=== PATIENT | male | born 1945 | race Caucasian/White ===

== ENCOUNTER 2018-06-20 11:19 | Outpatient (REF) | payer MEDICARE, SELFPAY ==
[2018-06-20 14:51] LABS: Anion Gap 7.6 mmol/L (3-11); BUN 13 mg/dL (7-18); CO2 29.4 mmol/L (21.0-32.0); CREATININE 1.02 mg/dL (0.70-1.30); Calcium 9.3 mg/dL (8.5-10.1); Chloride 102 mmol/L (98-107); Cholesterol 195 mg/dL (50-200); Glucose 147 mg/dL (70-100); HDL Cholesterol 37 mg/dL (40-60); LDL CHOLESTEROL 114 mg/dL (<100); Magnesium 1.4 mg/dL (1.8-2.4); Potassium 3.9 mmol/L (3.5-5.1); Sodium 139 mmol/L (136-145); Triglyceride 361 mg/dL (30-150); Vitamin B12 277 pg/mL (193-986)
== END 2018-06-20 11:39 ==
LOC: NCHCN 11:19
PROVIDERS: PCP Family Medicine; Visit Provider Family Medicine
DX: E83.42 Hypomagnesemia (principal); E78.5 Hyperlipidemia, unspecified; E11.9 Type 2 diabetes mellitus without complications; Z79.4 Long term (current) use of insulin; R20.0 Anesthesia of skin
CPT/HCPCS: 80048; 80061; 83721; 82607; 83735

== ENCOUNTER 2019-01-16 13:40 | Emergency (ER) | payer MEDICARE, SELFPAY ==
[2019-01-16 13:43] VITALS: BP 142/76; PULSE 75; RESP 18; TEMP 36.7; O2SAT 96
--- NOTE | 2019-01-16 13:55 | W.ED.GENAD ---
Discharge Plan Disposition Patient Disposition: HOME Condition: Fair Discharge Details Chief Complaint: FacialProb Clinical Impression: Parotid swelling Primary Care Provider: Asif Burr ED Provider: Belkys Melendez Home Meds and New Rx's Prescriptions: Continued metformin 500 MG tablet 2 tab PO BID Qty: 180 RF: 4 amlodipine 10 MG tablet 1 tab PO DAILY Qty: 90 RF: 3 hydrochlorothiazide 25 MG tablet 25 mg PO DAILY Qty: 90 RF: 4 pravastatin 10 MG tablet 10 mg PO DAILY Qty: 90 RF: 3 lisinopril 40 MG tablet 40 mg PO QAM Qty: 90 RF: 0 Lantus Solostar U-100 Insulin 100 UNIT/1 ML insulin pen 40 units SQ HS Qty: 1 RF: 12 blood-glucose meter 1 EACH misc 1 ea Miscellaneous ONCE Qty: 1 RF: 0 blood sugar diagnostic [Blood Glucose Test] 1 EACH strip 1 ea Miscellaneous BID Qty: 200 RF: 4 lancets 1 EACH misc 1 ea Miscellaneous BID Qty: 200 RF: 4 aspirin 81 MG tablet,chewable 1 tab PO DAILY RF: 0 pioglitazone 30 mg Tablet 30 mg PO DAILY RF: 0 Discharge Instructions Instructions: Parotid Duct Obstruction (ED) Additional Instructions: At this point, your swelling does not appear to be from infection, rather this is likely from a blockage of the salivary duct. Encourage hydration (with water). Tylenol and ibuprofen as needed for discomfort. Try to increase elevations by sucking on sour candies, pickles. If you develop fever/chills, increased pain, redness or the new/worsening symptoms please seek care urgently once again. Otherwise, please follow-up with primary care next week if symptoms persist Referrals: Asif Burr [Primary Care Provider] - Medical Decision Making Patient 73 year old male presenting today with c/c of right sided facial pain that began yesterday. Pain and swelling noted over the right parotid gland. No erythema or warmth. He denies fevers/chills, recent travel. No abnormality in posterior oropharynx. No mass or swelling. Uvula is midline. Patient nontoxic. Swelling does not appear to be associated with infection. Advised this is likely associated with blockage of salivary duct. Encouraged hydration. He reports that he drinks 4 pots of coffee daily, I encouraged that he cut this back and try to add in water. We discussed using Lemon drops and other sour foods that will prompt excessive salivation. I advsed on compresses. Tylenol and/or Ibuprofen as needed for discomfort. He was given strict return precautions, in particular discussed signs of infection. All of his questions and concerns were addressed, he is in agreement with this plan. HPI General Mode of arrival: ambulatory. Date/Time Provider Initiated Documentation: 01/16/19 13:54. Limitations to Documentation: no limitations. Information obtained by: patient and RN notes reviewed. History of Present Illness 73 year old M presents to the emergency department with the chief complaint of right sided facial swelling, described as moderate, with intensity rated at 4. Quality is described as aching, and is localized to the face. Patient reports no radiation. Patient started experiencing this day(s) (1) and it has been constant. No relieving factors improve symptom(s), Eating worsens symptoms . Patient notes denies chest pain, cough, diaphoresis, fever/chills, headaches, loss of appetite, malaise, nausea/vomiting, rash, shortness of breath and weakness. Patient did receive the following treatments prior to arrival, NSAID Related Data Home Medications Medication Instructions Recorded Confirmed aspirin 1 tab PO DAILY 10/24/12 01/16/19 amlodipine 1 tab PO DAILY #90 tab 09/08/13 01/16/19 metformin 2 tab PO BID #180 tab-cap 09/08/13 01/16/19 hydrochlorothiazide 25 mg PO DAILY #90 tab 11/13/13 01/16/19 pravastatin 10 mg PO DAILY #90 tab 01/12/14 01/16/19 lisinopril 40 mg PO QAM #90 tab 02/11/14 01/16/19 Lantus Solostar U-100 Insulin 40 units SQ HS #1 pen 09/10/14 01/16/19 blood sugar diagnostic [Blood #200 strip 09/10/14 Glucose Test] blood-glucose meter #1 ea 09/10/14 lancets #200 ea 09/10/14 pioglitazone 30 mg PO DAILY 01/16/19 01/16/19 Allergies Allergy/AdvReac Type Severity Reaction Status Date / Time No Known Drug Allergies Allergy Unknown Unverified 01/16/19 13:47 General Stated Complaint: FacialProb CRISTIN: 4 Review of Systems Constitutional Reports as per HPI, Denies chills, Denies fatigue, Denies fever(s), Denies headache(s), Denies lethargy and Denies poor appetite Eyes Reports as per HPI, Denies eye discharge and Denies irritation ENT Reports as per HPI, Denies change in voice, Denies dental pain, Denies dysphagia, Denies vertigo, Denies dizziness, Denies ear discharge, Denies otalgia, Reports facial pain (right side of face over parotid gland), Denies headache(s), Denies mouth pain, Denies nasal congestion, Denies nasal discharge, Denies sinus pain, Denies sinus pressure, Denies sore throat and Denies throat swelling Cardiovascular Reports as per HPI, Denies chest pain and Denies dyspnea Respiratory Reports as per HPI, Denies cough and Denies dyspnea Gastrointestinal Reports as per HPI, Denies abdominal pain, Denies change in bowel habits, Denies dysphagia, Denies nausea and Denies vomiting Integumentary/Breasts Reports as per HPI and Denies rash Neurologic Reports as per HPI, Denies vertigo, Denies dizziness and Denies headache(s) Endocrine Denies fatigue Allergic/Immunologic Denies throat swelling [facility] Medical History Hypercholesteremia (Acute) Diabetes (Chronic) Hypertension (Chronic) Surgical History Appendectomy Colonoscopy - IV Sedation Colonoscopy - MAC (~2001) KNEE REPAIR LASER SURGERY Rotator Cuff Repair Social History Smoking/Tobacco Use Status: Current every day Drug use: Never Exam Const General: cooperative, healthy appearing, comfortable, no acute distress, well developed and well groomed Nutritional Appearance: average body habitus and well nourished Orientation: alert and awake [facility] Head: normal to inspection, normocephalic and atraumatic Ears: hearing grossly normal bilaterally, external ears normal and TM's normal bilaterally General nose exam: external nose normal and nares normal Face and sinus: sinuses nontender, no crepitus, no erythema, no fluctuance, no sinus tenderness and tenderness on the right (parotid gland, localized sweling, no erythema or warmth) Mouth: oral mucosae normal, lip normal, tongue normal, oropharynx normal and moist mucous membranes Teeth and gingiva: gingiva normal, caries and poor dentition Throat: posterior oropharynx normal, tonsils normal and uvula midline Eyes General: appearance normal, both eyes and all related structures Neck Neck: normal visual inspection, full ROM, no lymphadenopathy and no meningeal signs Resp Effort & Inspection: normal respiratory effort, able to speak in complete sentences and no respiratory distress Auscultation: clear to auscultation bilaterally, no rales, no rhonchi and no wheezes Cardio Rate: regular rate Rhythm: regular rhythm Heart Sounds: S1 normal and S2 normal Skin General skin exam: no rashes or lesions noted Neuro General: alert and awake Cognition: normal cognition Speech: speech normal Gait: normal gait Psych Appearance: grossly normal and well kempt Mental Status: mental status grossly normal Speech and Movement: speech and movement normal Course Vital Signs Temperature 36.7 C 01/16/19 13:43 Pulse 75 01/16/19 13:43 Respiratory Rate 18 01/16/19 13:43 Blood Pressure 142/76 H 01/16/19 13:43 Pulse Oximetry 96 01/16/19 13:43 Temperature 36.7 C 01/16/19 13:43 Temperature Source Skin 01/16/19 13:43 Pulse 75 01/16/19 13:43 Respiratory Rate 18 01/16/19 13:43 Blood Pressure 142/76 H 01/16/19 13:43 Blood Pressure Position Sitting 01/16/19 13:43 Pulse Oximetry 96 01/16/19 13:43 Oxygen Delivery Method Room Air 01/16/19 13:43 Oxygen Flow Rate 0 01/16/19 13:43 Pain Level 4 01/16/19 13:43
[2019-01-16 14:16] VITALS: BP 142/76; PULSE 75; RESP 18; TEMP 36.7; O2SAT 96
--- NOTE | 2019-01-16 15:05 | ED.GENADUL_ITS ---
Discharge Plan Disposition Patient Disposition: HOME Condition: Fair Discharge Details Chief Complaint: FacialProb Clinical Impression: Parotid swelling Primary Care Provider: Asif Burr ED Provider: Belkys Melendez Home Meds and New Rx's Prescriptions: Continued metformin 500 MG tablet 2 tab PO BID Qty: 180 RF: 4 amlodipine 10 MG tablet 1 tab PO DAILY Qty: 90 RF: 3 hydrochlorothiazide 25 MG tablet 25 mg PO DAILY Qty: 90 RF: 4 pravastatin 10 MG tablet 10 mg PO DAILY Qty: 90 RF: 3 lisinopril 40 MG tablet 40 mg PO QAM Qty: 90 RF: 0 Lantus Solostar U-100 Insulin 100 UNIT/1 ML insulin pen 40 units SQ HS Qty: 1 RF: 12 blood-glucose meter 1 EACH misc 1 ea Miscellaneous ONCE Qty: 1 RF: 0 blood sugar diagnostic [Blood Glucose Test] 1 EACH strip 1 ea Miscellaneous BID Qty: 200 RF: 4 lancets 1 EACH misc 1 ea Miscellaneous BID Qty: 200 RF: 4 aspirin 81 MG tablet,chewable 1 tab PO DAILY RF: 0 pioglitazone 30 mg Tablet 30 mg PO DAILY RF: 0 Discharge Instructions Instructions: Parotid Duct Obstruction (ED) Additional Instructions: At this point, your swelling does not appear to be from infection, rather this is likely from a blockage of the salivary duct. Encourage hydration (with water). Tylenol and ibuprofen as needed for discomfort. Try to increase elevations by sucking on sour candies, pickles. If you develop fever/chills, increased pain, redness or the new/worsening symptoms please seek care urgently once again. Otherwise, please follow-up with primary care next week if symptoms persist Referrals: Asif Burr [Primary Care Provider] - Medical Decision Making Patient 73 year old male presenting today with c/c of right sided facial pain that began yesterday. Pain and swelling noted over the right parotid gland. No erythema or warmth. He denies fevers/chills, recent travel. No abnormality in posterior oropharynx. No mass or swelling. Uvula is midline. Patient nontoxic. Swelling does not appear to be associated with infection. Advised this is likely associated with blockage of salivary duct. Encouraged hydration. He reports that he drinks 4 pots of coffee daily, I encouraged that he cut this back and try to add in water. We discussed using Lemon drops and other sour foods that will prompt excessive salivation. I advsed on compresses. Tylenol and/or Ibuprofen as needed for discomfort. He was given strict return precautions, in particular discussed signs of infection. All of his questions and concerns were addressed, he is in agreement with this plan. HPI General Mode of arrival: ambulatory . Date/Time Provider Initiated Documentation: 01/16/19 13:54 . Limitations to Documentation: no limitations . Information obtained by: patient and RN notes reviewed . History of Present Illness 73 year old M presents to the emergency department with the chief complaint of right sided facial swelling, described as moderate, with intensity rated at 4. Quality is described as aching, and is localized to the face. Patient reports no radiation. Patient started experiencing this day(s) (1) and it has been constant. No relieving factors improve sy mptom(s), Eating worsens symptoms . Patient notes denies chest pain, cough, diaphoresis, fever/chills, headaches, loss of appetite, malaise, nausea/vomiting, rash, shortness of breath and weakness. Patient did receive the following treatments prior to arrival, NSAID Related Data Home Medications Medication Instructions Recorded Confirmed aspirin 1 tab PO DAILY 10/24/12 01/16/19 amlodipine 1 tab PO DAILY #90 tab 09/08/13 01/16/19 metformin 2 tab PO BID #180 tab-cap 09/08/13 01/16/19 hydrochlorothiazide 25 mg PO DAILY #90 tab 11/13/13 01/16/19 pravastatin 10 mg PO DAILY #90 tab 01/12/14 01/16/19 lisinopril 40 mg PO QAM #90 tab 02/11/14 01/16/19 Lantus Solostar U-100 Insulin 40 units SQ HS #1 pen 09/10/14 01/16/19 blood sugar diagnostic [Blood #200 strip 09/10/14 Glucose Test] blood-glucose meter #1 ea 09/10/14 lancets #200 ea 09/10/14 pioglitazone 30 mg PO DAILY 01/16/19 01/16/19 Allergies Allergy/AdvReac Type Severity Reaction Status Date / Time No Known Drug Allergies Allergy Unknown Unverified 01/16/19 13:47 General Stated Complaint: FacialProb CRISTIN: 4 Review of Systems Constitutional Reports as per HPI, Denies chills, Denies fatigue, Denies fever(s), Denies headache(s), Denies lethargy and Denies poor appetite Eyes Reports as per HPI, Denies eye discharge and Denies irritation ENT Reports as per HPI, Denies change in voice, Denies dental pain, Denies dysphagia, Denies vertigo, Denies dizziness, Denies ear discharge, Denies otalgia, Reports facial pain (right side of face over parotid gland), Denies headache(s), Denies mouth pain, Denies nasal congestion, Denies nasal discharge, Denies sinus pain, Denies sinus pressure, Denies sore throat and Denies throat swelling Cardiovascular Reports as per HPI, Denies chest pain and Denies dyspnea Respiratory Reports as per HPI, Denies cough and Denies dyspnea Gastrointestinal Reports as per HPI, Denies abdominal pain, Denies change in bowel habits, Denies dysphagia, Denies nausea and Denies vomiting Integumentary/Breasts Reports as per HPI and Denies rash Neurologic Reports as per HPI, Denies vertigo, Denies dizziness and Denies headache(s) Endocrine Denies fatigue Allergic/Immunologic Denies throat swelling [facility] Medical History Hypercholesteremia (Acute) Diabetes (Chronic) Hypertension (Chronic) Surgical History Appendectomy Colonoscopy - IV Sedation Colonoscopy - MAC (~2001) KNEE REPAIR LASER SURGERY Rotator Cuff Repair Social History Smoking/Tobacco Use Status: Current every day Drug use: Never Exam Const General: cooperative, healthy appearing, comfortable, no acute distress, well developed and well groomed Nutritional Appearance: average body habitus and well nourished Orientation: alert and awake [facility] Head: normal to inspection, normocephalic and atraumatic Ears: hearing grossly normal bilaterally, external ears normal and TM's normal bilaterally General nose exam: external nose normal and nares normal Face and sinus: sinuses nontender, no crepitus, no erythema, no fluctuance, no sinus tenderness and tenderness on the right (parotid gland, localized sweling, no erythema or warmth) Mouth: oral mucosae normal, lip normal, tongue normal, oropharynx normal and moist mucous membranes Teeth and gingiva: gingiva normal, caries and poor dentition Throat: posterior oropharynx normal, tonsils normal and uvula midline Eyes General: appearance normal, both eyes and all related structures Neck Neck: normal visual inspection, full ROM, no lymphadenopathy and no meningeal signs Resp Effort & Inspection: normal respiratory effort, able to speak in complete sentences and no respiratory distress Auscultation: clear to auscultation bilaterally, no rales, no rhonchi and no wheezes Cardio Rate: regular rate Rhythm: regular rhythm Heart Sounds: S1 normal and S2 normal Skin General skin exam: no rashes or lesions noted Neuro General: alert and awake Cognition: normal cognition Speech: speech normal Gait: normal gait Psych Appearance: grossly normal and well kempt Mental Status: mental status grossly normal Speech and Movement: speech and movement normal Course Vital Signs Temperature 36.7 C 01/16/19 13:43 Pulse 75 01/16/19 13:43 Respiratory Rate 18 01/16/19 13:43 Blood Pressure 142/76 H 01/16/19 13:43 Pulse Oximetry 96 01/16/19 13:43 Temperature 36.7 C 01/16/19 13:43 Temperature Source Skin 01/16/19 13:43 Pulse 75 01/16/19 13:43 Respiratory Rate 18 01/16/19 13:43 Blood Pressure 142/76 H 01/16/19 13:43 Blood Pressure Position Sitting 01/16/19 13:43 Pulse Oximetry 96 01/16/19 13:43 Oxygen Delivery Method Room Air 01/16/19 13:43 Oxygen Flow Rate 0 01/16/19 13:43 Pain Level 4 01/16/19 13:43
== END 2019-01-16 14:15 | disposition home or self-care (01) ==
LOC: ER 14:21
PROVIDERS: Emergency Provider Physician Assistant; PCP Family Medicine
DX: R59.0 Localized enlarged lymph nodes (principal); K11.21 Acute sialoadenitis; E11.9 Type 2 diabetes mellitus without complications; I10 Essential (primary) hypertension; Z79.4 Long term (current) use of insulin
CPT/HCPCS: 99282

== ENCOUNTER 2019-08-14 09:29 | Outpatient (REF) | payer OTHER, SELFPAY ==
[2019-08-14 12:03] LABS: Hemoglobin A1C 12.7 % (4.5-6.2)
[2019-08-14 12:27] LABS: Anion Gap 7.8 mmol/L (3-11); BUN 11 mg/dL (7-18); CO2 30.2 mmol/L (21.0-32.0); CREATININE 0.96 mg/dL (0.70-1.30); Calcium 9.1 mg/dL (8.5-10.1); Chloride 103 mmol/L (98-107); Glucose 236 mg/dL (74-106); Magnesium 1.7 mg/dL (1.8-2.4); Potassium 3.8 mmol/L (3.5-5.1); Sodium 141 mmol/L (136-145); Vitamin B12 362 pg/mL (193-986)
== END 2019-08-14 09:49 ==
LOC: NCHCN 09:29
PROVIDERS: PCP Family Medicine; Visit Provider Family Medicine
DX: I10 Essential (primary) hypertension (principal); E83.42 Hypomagnesemia; E11.9 Type 2 diabetes mellitus without complications; Z79.4 Long term (current) use of insulin; R20.0 Anesthesia of skin
CPT/HCPCS: 80048; 82607; 83036; 83735

== ENCOUNTER 2019-09-16 11:15 | Outpatient (CLI) | payer OTHER, SELFPAY ==
--- NOTE | 2019-09-16 09:35 | DI.RAD_ITS ---
EXAM: XR CHEST 2V PA LATERAL INDICATION: SOB R06.02. COMPARISON: CHEST 2 VIEWS PA,LAT from 04/02/2013 TECHNIQUE: 2D digital imaging was performed. FINDINGS: Heart is at the upper limits of normal in size. There is prominence of the pulmonary vasculature. B ilateral pleural effusions are present. Interstitial infiltrates are seen. Degenerative changes are seen in the spine. IMPRESSION: Findings suggestive of congestive heart failure.
== END 2019-09-16 11:35 ==
PROVIDERS: PCP Family Medicine; Visit Provider Family Medicine
DX: I51.7 Cardiomegaly (principal); J90 Pleural effusion, not elsewhere classified; I50.9 Heart failure, unspecified
CPT/HCPCS: 71046

== ENCOUNTER 2019-10-08 02:22 | Outpatient (CLI) | payer OTHER, SELFPAY ==
--- NOTE | 2019-10-08 13:40 | DI.US_ITS ---
APPROVED REPORT EXAM: Comprehensive 2D, Doppler, and color-flow Echocardiogram Patient Location: Out-Patient Feltmaker: Yuki Benjamin RDCS (AE) Rhythm: BBB Indications: congestive heart failure. new SOB, CXR c/w CHF Conclusion Left Ventricle : Left ventricle is mildly dilated. Left ventricular systolic function is moderately d ecreased. Borderline left ventricular hypertrophy. The entire apex is hypokinetic. Please see wall m otion diagram for further details. The septum is D-shaped suggestive of RV pressure overload. There is grade 2 diastolic dysfunction. LVEF is estimated to be 35???40%. Right Ventricle : The right ventricle is normal size. The right ventricular systolic function appears low normal. Atria : Left atrium is moderately dilated. Right atrium is mildly dilated. Aortic Valve : The Aortic valve is sclerotic. Aortic valve is probably trileaflet. There is no aortic valvular stenosis. No aortic regurgitation is present. Mitral Valve : Mitral valve leaflets are mildly thickened. Mild mitral regurgitation. No evidence of mitral valve stenosis. 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 The ascending aorta is mildly dilated at 3.9 cm. The IVC is dilated but collapses >50% with inspiration. The estimated RVSP is 40-50 mmHg. There is no prior echocardiogram available for comparison. Wall motion Left Ventricle Left ventricle is mildly dilated. Left ventricular systolic function is moderately decreased. Borderl ine left ventricular hypertrophy. The entire apex is hypokinetic. Please see wall motion diagram for further details. The septum is D-shaped suggestive of RV pressure overload. There is grade 2 diastoli c dysfunction. LVEF is estimated to be 35???40%. Right Ventricle The right ventricle is normal size. The right ventricular systolic function appears low normal. Atria Left atrium is moderately dilated. Right atrium is mildly dilated. Aortic Valve The Aortic valve is sclerotic. Aortic valve is probably trileaflet. There is no aortic valvular steno sis. No aortic regurgitation is present. Mitral Valve Mitral valve leaflets are mildly thickened. No evidence of mitral valve stenosis. Mild mitral regurgi tation. Tricuspid Valve The tricuspid valve leaflets are midlly thickened or calcified, but open well. Moderate tricuspid reg urgitation. Pulmonic Valve Pulmonic valve is not well visualized. 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 The ascending aorta is mildly dilated at 3.9 cm. The IVC is dilated but collapses >50% with inspiration. The estimated RVSP is 40-50 mmHg. Pericardium Trivial pericardial effusion was noted. Right pleural effusion was identified. 2D Dimensions IVSD d PLAX 1.21 cm M: 0.6-1.2 LV Vol A2C d MOD 191.5 mL LVPW d PLAX 1.08 cm M: 0.6 - 1.2 LV Vol A4C d MOD 162.1 mL LVID d PLAX 6.27 cm M: 4.2 - 5.8 LA vol/ BSA A2C s A-L 47.8 mL/m2 LVDs 5.00 cm M: 2.5 - 4.0 LA vol/ BSA A4C s A-L 52.6 mL/m2 Ao Root d 3.80 cm M: 3.1 - 3.7 LA Vol/ BSA Biplane s A-L 51.6 mL/m2 RVID Base (AP4) 3.92 cm (M/F) 2.5-4.1 LA Area A4C s MOD 27.50 cm2 RA Area A4C 20.92 cm2 LA Area A2C s MOD 25.49 cm2 RA Vol/ BSA A4C s A-L 30.9 mL/m2 LV EF A4C MOD 41.2 % Ao Asc Diam d 3.93 cm M: 2.6 - 3.4 LV EF A2C MOD 40.6 % LV EF Teichholz 40.1 % LV EF Biplane MOD 40.1 % LVEF (Burton's) 40.15 % M: 52 - 72 IVC Diam exp d SLAX 2.20 cm LV Volume 139.15 mL M: 62 - 150 LV Volume Index 72.47 mL/m2 M: 34 - 74 LV Vol Biplane MOD 183.1 mL FS 19.95 % M-Mode TAPSE 1.69 cm (M/F) <1.7 LV Diastology MV E' medial 0.058 (>0.07 m/s) E/A Ratio 1.9 LV E/e MED 16.15 (<14) PV S/D Ratio 0.60 MV E' lateral 0.063 (>0.1 m/s) MV E Vmax 0.94 (0.4-1.3 m/s) LV E/e LAT 14.80 (<14) MV A Vmax 0.50 (0.4-1.3 m/s) MV E/E' medial 16.17 MV E/A Ratio 1.74 MV E/E' lateral 14.81 Aortic Valve LVOT Area 3.73 cm2 AoV Area Vmax 2.12 cm2 LVOT Vmax 0.83 m/s AoV Area/ BSA (Vmax) 1.10 cm2/m2 LVOT Mean Walter. 0.61 m/s MICK Mean Walter. 2.12 cm2 LVOT Peak Grad 2.8 mmHg MICK Mean Walter. Index 1.10 cm2/m2 LVOT Mean Grad 1.7 mmHg LVOT VTI 0.152 m LVOT Diam s 2.15 cm (M/F) 1.5-2.5 AoV Vmax 1.47 (0.5-1.3 m/s) Velocity Ratio 0.56 AoV Mean Walter. 1.07 m/s AoV Peak Grad 8.6 mmHg LVOT SV 56.79 mL AoV Mean Grad 5.0 (<5 mmHg) AoV VTI 0.284 (0.18-0.25 m) AoV Area VTI 2.00 (2.5-4.5 cm2) AoV Area/ BSA (VTI) 1.04 cm/m2 Mitral Valve MV DT 126 (160-240 msec) MR Vmax 4.92 m/s MV PHT 37 msec MR VTI 1.589 m MV Area PHT 6.02 cm2 MR Peak Grad 96.9 mmHg MV VTI 0.084 m MR Mean Grad 59.9 mmHg MV VTI Annulus 0.084 m MV Regurg Vol 22.70 mL MV Diam AP 3.47 cm MV RF 28.55 % MV SV 79.49 mL RUPV S Vmax 0.26 m/s Pulm Vein s 0.26 m/s RUPV D Vmax 0.44 m/s Pulm Vein d 0.44 m/s Pulmonary Valve PV Vmax 0.77 (0.5-1.5 m/s) RVOT Peak Gr. 1.00 mmHg PV Peak Grad 2.3 mmHg RVOT Mean Gr. 0.55 mmHg PV Mean Grad 1.5 mmHg RVOT VTI 0.098 m PV VTI 0.113 m RVOT Vmax 0.50 m/s Tricuspid Valve TR Peak Grad 42.0 mmHg TR Vmax 3.24 m/s RA Pressure 8.00 mmHg RVSP (TR) 50.1 mmHg
== END 2019-10-08 02:42 ==
PROVIDERS: PCP Family Medicine; Visit Provider Family Medicine
DX: I50.9 Heart failure, unspecified (principal); R06.02 Shortness of breath; I51.7 Cardiomegaly; I10 Essential (primary) hypertension
CPT/HCPCS: 93306

== ENCOUNTER 2019-11-23 02:38 | Emergency (ER) | payer OTHER, SELFPAY ==
[2019-11-23] VITALS (11 sets, daily range): BP systolic 146–170; BP diastolic 92–107; PULSE 74–89; RESP 19–31; TEMP 36.5; O2SAT 90–98
--- NOTE | 2019-11-23 02:47 | ED.GENADUL_ITS ---
Discharge Plan Disposition Patient Disposition: HOME Condition: Stable Discharge Details Chief Complaint: Diabetes Clinical Impression: Hypoglycemia Primary Care Provider: Asif Burr ED Provider: Ricky Stokes Home Meds and New Rx's Prescriptions: New doxycycline hyclate 100 mg tablet 100 mg PO BID Qty: 14 RF: 0 Continued metformin 500 MG tablet 2 tab PO BID Qty: 180 RF: 4 amlodipine 10 MG tablet 1 tab PO DAILY Qty: 90 RF: 3 hydrochlorothiazide 25 MG tablet 25 mg PO DAILY Qty: 90 RF: 4 pravastatin 10 MG tablet 10 mg PO DAILY Qty: 90 RF: 3 lisinopril 40 MG tablet 40 mg PO QAM Qty: 90 RF: 0 Lantus Solostar U-100 Insulin 100 UNIT/1 ML insulin pen 40 units SQ HS Qty: 1 RF: 12 (DME) blood-glucose meter 1 EACH misc 1 ea Miscellaneous ONCE Qty: 1 RF: 0 (DME) blood sugar diagnostic [Blood Glucose Test] 1 EACH strip 1 ea Miscellaneous BID Qty: 200 RF: 4 (DME) lancets 1 EACH misc 1 ea Miscellaneous BID Qty: 200 RF: 4 aspirin 81 MG tablet,chewable 1 tab PO DAILY RF: 0 pioglitazone 30 mg Tablet 30 mg PO DAILY RF: 0 No Action insulin aspart U-100 [Novolog Flexpen U-100 Insulin] 100 unit/mL (3 mL) insulin pen 20 unit SUBCUT DAILY RF: 0 Discharge Instructions Instructions: Diabetic Hypoglycemia (ED) Additional Instructions: decrease lantus to 20units until you are able to speak with your primary care provider about your insulin dosing also take your novolog BEFORE your largest meal of the day follow up with your primary care provider this week if you have high fevers, difficulty breathing or feel more ill return to the emergency department Medical Decision Making 74 yo male with hx of htn, DM, copd, who comes in with ems after two episodes of hypoglycemia. HE takes lantus at night, no recent changes, and tonight has had two times where his blood sugar went into the 40's and family stated he was out of it to ems. This last time he was in the bathroom on the toilet when it happened. No falls, was found to have bgfs of 40 by family and woke him up enough to give him food and on ems arrival was awake and talking. He arrives without complaints other than dry cough for a week, no fevers, chills, sick contacts or travel. HE arrives caox4 and is speaking in full sentences. Has agus ar lungs, clear rhinorrhea. Suspect hypoglycemia likely from the lantus. Will observe here and monitor bgfs. No risks for covid19 and no fevers so doubt this and doubt pna given reassuring lung sounds and no fever or significant hypoxia. Could be related to his copd so will likely start him on treatment with doxy for this. pt continues to feel well, eating and drinking withotu complaints, will continue to monitor. pt still feels well requesting d/c. blood sugar stable here. His called and states the patient has been taking his novolog with his lantus rather than taking the novolog before dinner. He also has lost weight so likely doesn't need as much insulin as before. Advised to take novolog before his meal as prescribed by pcp and advised if unable to speak with pcp regarding his dosing of insulin to start decreasing his lantus to 20U until he is able to see his pcp. Differential Diagnosis Differential Diagnosis: insulin overdose, bronchitis, copd HPI General Mode of arrival: EMS . Date/Time Provider Initiated Documentation: 11/23/19 02:46 . Limitations to Documentation: no limitations . Information obtained by: patient . History of Present Illness 74 year old M presents to the emergency department with the chief complaint of low blood sugar, described as moderate, and it has been constant. No relieving factors improve symptom(s), No exacerbating factors reported . Patient notes cough. Patient did receive the following treatments prior to arrival, none Related Data Home Medications Medication Instructions Recorded Confirmed aspirin 1 tab PO DAILY 10/24/12 11/23/19 amlodipine 1 tab PO DAILY #90 tab 09/08/13 11/23/19 metformin 2 tab PO BID #180 tab-cap 09/08/13 11/23/19 hydrochlorothiazide 25 mg PO DAILY #90 tab 11/13/13 11/23/19 pravastatin 10 mg PO DAILY #90 tab 01/12/14 11/23/19 lisinopril 40 mg PO QAM #90 tab 02/11/14 11/23/19 Lantus Solostar U-100 Insulin 40 units SQ HS #1 pen 09/10/14 11/23/19 blood sugar diagnostic [Blood #200 strip 09/10/14 11/23/19 Glucose Test] blood-glucose meter #1 ea 09/10/14 11/23/19 lancets #200 ea 09/10/14 11/23/19 pioglitazone 30 mg PO DAILY 01/16/19 11/23/19 doxycycline hyclate 100 mg PO BID #14 tab 11/23/19 insulin aspart U-100 [Novolog 20 unit SUBCUT DAILY 11/23/19 11/23/19 Flexpen U-100 Insulin] Previous Rx's Medication Instructions Recorded doxycycline hyclate 100 mg PO BID #14 tab 11/23/19 Allergies Allergy/AdvReac Type Severity Reaction Status Date / Time No Known Drug Allergies Allergy Unknown Unverified 11/23/19 02:46 General Stated Complaint: Diabetes CRISTIN: 3 Review of Systems All systems reviewed & are unremarkable except as noted in HPI and below Constitutional Constitutional: Denies chills, Denies fever(s) and Denies weakness Cardiovascular Cardiovascular: Denies chest pain and Denies dyspnea Respiratory Respiratory: Denies dyspnea Gastrointestinal Gastrointestinal: Denies abdominal pain, Denies nausea and Denies vomiting Musculoskeletal Musculoskeletal: Denies joint swelling Neurologic Neurologic: Denies weakness Psychiatric Psychiatric: Denies depression [facility] Social History Smoking/Tobacco Use Status: Current every day Tobacco Type: pipe Alcohol Intake: never Drug use: Never Substance use type: does not use Do you feel safe at home: Yes Do you feel safe in your relationship?: Yes Exam Const General: no acute distress Orientation: alert HENMT Head: normal to inspection Ears: external ears normal General nose exam: external nose normal Mouth: moist mucous membranes Eyes General: appearance normal, both eyes and all related structures Neck Neck: normal visual inspection Resp Effort & Inspection: normal respiratory effort and able to speak in complete sentences Cardio Rate: regular rate Skin General skin exam: no rashes or lesions noted Neuro General: patient alert and patient oriented x3 Extrem General: normal to inspection Psych Mental Status: mental status grossly normal Course Vital Signs Vital signs: Vital Signs Temperature 36.5 C 11/23/19 02:38 Pulse 74 11/23/19 02:38 Respiratory Rate 25 H 11/23/19 02:38 Blood Pressure 158/96 H 11/23/19 02:38 Pulse Oximetry 95 11/23/19 02:38 Temperature 36.5 C 11/23/19 02:38 Temperature Source Temporal Artery Scan 11/23/19 02:38 Pulse 74 11/23/19 02:38 Respiratory Rate 25 H 11/23/19 02:38 Blood Pressure 158/96 H 11/23/19 02:38 Blood Pressure Position Sitting 11/23/19 02:38 Pulse Oximetry 95 11/23/19 02:38 Oxygen Delivery Method Room Air 11/23/19 02:38 Oxygen Flow Rate 0 11/23/19 02:38 Pain Level 0 11/23/19 02:38
[2019-11-23] MEDS: Doxycycline Hyclate 100 MG CAP PO (04:03)
== END 2019-11-23 05:25 | disposition home or self-care (01) ==
LOC: ER 04:05
PROVIDERS: Emergency Provider Emergency Medicine; PCP Family Medicine
DX: E11.649 Type 2 diabetes mellitus with hypoglycemia without coma (principal); Z79.4 Long term (current) use of insulin; I10 Essential (primary) hypertension; J44.9 Chronic obstructive pulmonary disease, unspecified; F17.290 Nicotine dependence, other tobacco product, uncomplicated
CPT/HCPCS: 36416; 82962; 99283

== ENCOUNTER 2019-11-24 09:32 | Outpatient (CLI) | payer OTHER, SELFPAY ==
[2019-11-27 03:36] LABS: SARS-CoV-2 RNA Undetected (Undetected); SARS-CoV-2 Specimen Source Nasopharynx
== END 2019-11-24 09:52 ==
PROVIDERS: PCP Family Medicine; Visit Provider Family Medicine
DX: Z20.828 Contact with and (suspected) exposure to other viral communicable diseases (principal)
CPT/HCPCS: U0003

== ENCOUNTER 2019-12-09 21:31 | Emergency (ER) | payer OTHER, SELFPAY | END 2019-12-11 00:15 | PROVIDERS: PCP Family Medicine | DX: R69 Illness, unspecified (principal) ==

== ENCOUNTER 2019-12-23 08:41 | Outpatient (REF) | payer OTHER, SELFPAY ==
[2019-12-23 19:13] LABS: Anion Gap 3.3 mmol/L (3-11); BUN 16 mg/dL (7-18); CO2 32.7 mmol/L (21.0-32.0); CREATININE 1.01 mg/dL (0.70-1.30); Calcium 9.1 mg/dL (8.5-10.1); Chloride 100 mmol/L (98-107); Glucose 249 mg/dL (74-106); Magnesium 1.5 mg/dL (1.8-2.4); Potassium 3.9 mmol/L (3.5-5.1); Sodium 136 mmol/L (136-145)
[2019-12-23 19:23] LABS: Hemoglobin A1C 9.6 % (3.8-5.6)
== END 2019-12-23 09:01 ==
LOC: NCHCN 08:41
PROVIDERS: PCP Family Medicine; Visit Provider Family Medicine
DX: E11.9 Type 2 diabetes mellitus without complications (principal); Z79.4 Long term (current) use of insulin; I50.9 Heart failure, unspecified; I10 Essential (primary) hypertension
CPT/HCPCS: 80048; 83036; 83735

== ENCOUNTER 2020-02-29 18:42 | Outpatient (REF) | payer OTHER, SELFPAY ==
[2020-02-29 16:53] LABS: Anion Gap 7.8 mmol/L (3-11); BUN 22 mg/dL (7-18); C-Reactive Protein 0.16 mg/dL (0.0-0.3); CO2 29.2 mmol/L (21.0-32.0); CREATININE 1.06 mg/dL (0.70-1.30); Calcium 9.5 mg/dL (8.5-10.1); Chloride 102 mmol/L (98-107); Glucose 280 mg/dL (74-106); Magnesium 1.5 mg/dL (1.8-2.4); NT-proBNP 4014 pg/mL (<300); Potassium 4.5 mmol/L (3.5-5.1); Sodium 139 mmol/L (136-145)
== END 2020-02-29 19:02 ==
LOC: NCHCN 18:42
PROVIDERS: PCP Family Medicine; Visit Provider Family Medicine
DX: E83.42 Hypomagnesemia (principal); I50.9 Heart failure, unspecified; M79.646 Pain in unspecified finger(s)
CPT/HCPCS: 80048; 83735; 83880; 86140

== ENCOUNTER 2020-03-23 02:12 | Outpatient (CLI) | payer OTHER, SELFPAY ==
[2020-03-23] MEDS: Normal Saline - Diluent 50 ML VIAL IV (13:32)
[2020-03-23] MEDS: Omnipaque 350 MG/ML 100 ML BTL IJ (13:33)
--- NOTE | 2020-03-23 13:47 | DI.CT_ITS ---
EXAM: CT NECK W CLINICAL HISTORY: RT PAROTID MASS, K11.8. TECHNIQUE: Imaging Protocol: Axial computed tomography images with coronal and sagittal reformatted images were created and reviewed CONTRAST MATERIAL: Intravenous: Omnipaque 350 Contrast volume:100 ml Contrast route:IV - COMPARISON: CT ABD/PELVIS WO W CONTRAST from 10/01/2012 CR CHEST 2 VIEWS PA,LAT from 04/02/2013 CR XR CHEST 2V PA LATERAL from 09/16/2019 FINDINGS: There is a heterogeneously enhancing, mainly low-attenuation circumscribed mass in the right parotid gland measuring 2.7 x 3.3 x 4.9 cm. An additional enhancing nodule seen more superiorly in the deep lobe measuring 1.6 x 2.3 by 2.3 cm. Smaller enhancing nodules are seen in the left parotid lobe, t he largest measuring 15 millimeters. Submandibular/thyroid gland: Normal. Lymphadenopathy: There is scattered lymph nodes seen along the level one to level three all measurin g less than 8 mm in short axis diameter which are physiologic in nature. Carotids/Jugular: Within normal limits. Soft tissues: The floor the mouth is unremarkable. The epiglottis and vocal cords are within normal limits. A moderate to large-sized right pleural effusion is seen. There is a small left pleural effusion. T here is adenopathy in the right paratracheal region. The visualized portions of the brain are unremarkable. The visualized portions of the sinuses and ma stoid air cells appear clear. 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 The findings could represent Warthin's tumor however metastatic disease or other parotid malignancy is not excluded. No adenopathy is seen in the neck ho wever there is adenopathy visible in the upper chest. Bilateral pleural effusions are also present. RADIATION DOSE DELIVERED: Total DLP DATA REPOSITORY: All CT scans at this facility are submitted to the National Radiology Data Registry (NRDR) Dose Index Registry (DIR) with the [employer] [place] [employer] (ACR). RADIATION OPTIMIZATION: All CT scans at this facility use at least one of these dose optimization te chniques: automated exposure control; mA and/or kV adjustment per patient size (includes targeted exa ms where dose is matched to clinical indication); or iterative reconstruction.
== END 2020-03-23 02:32 ==
PROVIDERS: PCP Family Medicine; Visit Provider Family Medicine
DX: K11.8 Other diseases of salivary glands (principal); J90 Pleural effusion, not elsewhere classified; R59.0 Localized enlarged lymph nodes
CPT/HCPCS: 70491; J3490

== ENCOUNTER 2020-04-12 09:54 | Outpatient (REF) | payer OTHER, SELFPAY ==
[2020-04-12 19:56] LABS: Anion Gap 6.4 mmol/L (3-11); BUN 21 mg/dL (7-18); CO2 29.6 mmol/L (21.0-32.0); CREATININE 1.03 mg/dL (0.70-1.30); Calcium 9.8 mg/dL (8.5-10.1); Chloride 100 mmol/L (98-107); Glucose 343 mg/dL (74-106); Magnesium 1.9 mg/dL (1.8-2.4); Potassium 5.7 mmol/L (3.5-5.1); Sodium 136 mmol/L (136-145)
== END 2020-04-12 10:14 ==
LOC: NCHCN 09:54
PROVIDERS: PCP Family Medicine; Visit Provider Family Medicine
DX: I50.9 Heart failure, unspecified (principal)
CPT/HCPCS: 80048; 83735

== ENCOUNTER 2021-08-16 22:09 | Outpatient (REF) | payer OTHER, SELFPAY ==
[2021-08-16 22:40] LABS: ALT 33 U/L (16-63); AST 23 U/L (15-37); Albumin 3.9 g/dL (3.4-5.0); Alkaline Phosphatase 138 U/L (46-116); BUN 30 mg/dL (7-18); Bilirubin, Total 0.4 mg/dL (0.2-1.0); CREATININE 1.3 mg/dL (0.70-1.30); Calcium 9.5 mg/dL (8.5-10.1); Chloride 100 mmol/L (98-107); Estimated GFR 53.67 (mL/min/1.73m2); Glucose 266 mg/dL (74-106); Potassium 4.6 mmol/L (3.5-5.1); Sodium 136 mmol/L (136-145); Total Protein 7.8 g/dL (6.4-8.2); Vitamin B12 396 pg/mL (193-986)
== END 2021-08-16 22:10 | disposition home or self-care (01) ==
LOC: NCHCN 22:09
PROVIDERS: PCP Family Medicine; Visit Provider Family Medicine
DX: E11.9 Type 2 diabetes mellitus without complications (principal); E83.42 Hypomagnesemia; R20.0 Anesthesia of skin
CPT/HCPCS: 80053; 82607; 83735

== ENCOUNTER 2021-12-25 19:15 | Outpatient (REF) | payer MEDICARE, SELFPAY ==
[2021-12-25 18:42] LABS: Anion Gap 5.7 mmol/L (3-11); BUN 27 mg/dL (7-18); CO2 30.3 mmol/L (21.0-32.0); CREATININE 1.3 mg/dL (0.70-1.30); Chloride 98 mmol/L (98-107); Estimated GFR 53.67 (mL/min/1.73m2); Glucose 419 mg/dL (74-106); Potassium 5.3 mmol/L (3.5-5.1); Sodium 134 mmol/L (136-145)
== END 2021-12-25 19:16 | disposition home or self-care (01) ==
LOC: NCHCN 19:15
PROVIDERS: PCP Family Medicine; Visit Provider Family Medicine
DX: I10 Essential (primary) hypertension (principal); E87.5 Hyperkalemia
CPT/HCPCS: 80048

== ENCOUNTER → 2022-02-08 02:33 | Outpatient (CLI) | payer MEDICARE, SELFPAY ==
--- NOTE | 2022-02-08 11:00 | DI.US_ITS ---
APPROVED REPORT EXAM: Comprehensive 2D, Doppler, and color-flow Echocardiogram Patient Location: Out-Patient Coal Deliverer: Kat Rae RDCS (AE) Indications: Congestive heart failure Other Information Study Quality: Adequate Conclusion Normal left ventricular wall thickness and chamber size. Estimated ejection fraction is 40%. The ap ex is akinetic. The remainder of the left ventricle is hypocontractile Normal right ventricular size and systolic function Both atria are normal in size The aortic valve is sclerotic and trileaflet without stenosis or regurgitation Mild mitral annular calcification, trace mitral regurgitation Normal tricuspid valve with trace regurgitation. Estimated right ventricular systolic pressure is 22 mmHg Dilated ascending aorta measuring 3.92 cm Wall motion Left Ventricle The left ventricle is normal size. Left ventricular systolic function is moderately decreased. There is normal left ventricular wall thickness. [place] is akinetic. Remainder is hypokinetic There is no piyush tricular septal defect visualized. LVEF is 40%. Right Ventricle Right ventricle is grossly normal in size. Right ventricular systolic function is grossly normal. The RVSP is 22.0 mmHg. Atria The left atrium size is normal. The right atrium size is normal. The interatrial septum is intact wit h no evidence for an atrial septal defect. Aortic Valve The Aortic valve is sclerotic. Aortic valve is trileaflet. There is no aortic valvular stenosis. No a ortic regurgitation is present. Mitral Valve Mild mitral annular calcification. No evidence of mitral valve stenosis. Trace mitral regurgitation. Tricuspid Valve The tricuspid valve is normal in structure. There is no tricuspid valve stenosis. Trace tricuspid reg urgitation. Pulmonic Valve The pulmonary valve is normal in structure. There is no pulmonic valvular stenosis. Trace pulmonic re gurgitation. Great Vessels The aortic root is normal in size. The ascending aorta is moderately dilated. Aortic arch is not well visualized. IVC is normal in size and collapses >50% with inspiration. Pericardium There is no pericardial effusion. 2D Dimensions IVSD d PLAX 1.22 cm M: 0.6-1.2 LV Vol A2C d MOD 148.0 mL LVPW d PLAX 1.20 cm M: 0.6 - 1.2 LV Vol A4C d MOD 142.4 mL LVID d PLAX 5.03 cm M: 4.2 - 5.8 LA vol/ BSA A2C s A-L 21.7 mL/m2 LVDs 4.00 cm M: 2.5 - 4.0 LA vol/ BSA A4C s A-L 20.4 mL/m2 Ao Root d 3.76 cm M: 3.1 - 3.7 LA Vol/ BSA Biplane s A-L 22.1 mL/m2 RA Area A4C 13.33 cm2 LA Area A4C s MOD 16.86 cm2 RA Vol/ BSA A4C s A-L 13.9 mL/m2 LA Area A2C s MOD 16.59 cm2 Ao Asc Diam d 3.92 cm M: 2.6 - 3.4 LV EF A4C MOD 40.3 % LV EF Teichholz 40.9 % LV EF A2C MOD 40.2 % LVEF (Burton's) 40.73 % M: 52 - 72 LV EF Biplane MOD 40.7 % LV Volume 109.63 mL M: 62 - 150 SV 60.34 mL LV Volume Index 52.70 mL/m2 M: 34 - 74 SV Index 28.97 mL/m2 LV Vol Biplane MOD 148.1 mL FS 20.05 % M-Mode TAPSE 2.36 cm (M/F) >1.7 LV Diastology MV E' medial 0.032 (>0.07 m/s) E/A Ratio 0.5 LV E/e MED 12.45 (<14) MV E Vmax 0.40 (0.4-1.3 m/s) MV E' lateral 0.046 (>0.1 m/s) MV A Vmax 0.80 (0.4-1.3 m/s) LV E/e LAT 8.60 (<14) MV E/A Ratio 0.48 MV E/E' medial 12.46 MV E/E' lateral 8.62 Aortic Valve LVOT Area 3.63 cm2 AoV Area Vmax 2.55 cm2 LVOT Vmax 0.97 m/s AoV Area/ BSA (Vmax) 1.22 cm2/m2 LVOT Mean Walter. 0.69 m/s MICK Mean Walter. 2.38 cm2 LVOT Peak Grad 3.7 mmHg MICK Mean Walter. Index 1.14 cm2/m2 LVOT Mean Grad 2.2 mmHg LVOT VTI 0.191 m LVOT Diam s 2.10 cm AoV Vmax 1.38 m/s Velocity Ratio 0.70 AoV Mean Walter. 1.05 m/s AoV Peak Grad 7.6 mmHg LVOT SV 69.20 mL AoV Mean Grad 4.9 mmHg AoV VTI 0.278 m AoV Area VTI 2.49 cm2 AoV Area/ BSA (VTI) 1.19 cm/m2 Mitral Valve MV DT 352 (160-240 msec) MV PHT 102 msec MV Area PHT 2.15 cm2 MV VTI 0.213 m MV Area VTI 3.25 (4.0-6.0 cm2) Pulmonary Valve PV Vmax 0.61 (0.5-1.5 m/s) RVOT Peak Gr. 0.59 mmHg PV Peak Grad 1.5 mmHg RVOT Mean Gr. 0.35 mmHg PV Mean Grad 0.9 mmHg RVOT VTI 0.083 m PV VTI 0.117 m RVOT Vmax 0.38 m/s Tricuspid Valve TR Peak Grad 19.1 mmHg TR Vmax 2.19 m/s RA Pressure 3.00 mmHg RVSP (TR) 22.0 mmHg
== END ==
PROVIDERS: PCP Family Medicine; Visit Provider Family Medicine
DX: I50.20 Unspecified systolic (congestive) heart failure (principal)
CPT/HCPCS: 93306

== ENCOUNTER 2022-07-09 08:28 | Emergency (ER) | payer MEDICARE, SELFPAY ==
[2022-07-09 08:32] VITALS: BP 142/80; PULSE 70; RESP 18; TEMP 37; O2SAT 99
[2022-07-09 08:51] VITALS: RESP 20
[2022-07-09] MEDS: Cephalexin 500 MG CAP PO (09:42)
[2022-07-09 09:44] LABS: Abs Immature Grans 0.03 10^3/uL (0.0-0.06); Absolute Basophil Count 0.04 10^3/uL (0.0-0.2); Absolute Eosinophil Count 0.19 10^3/uL (0.0-0.7); Absolute Lymphocyte Count 1.55 10^3/uL (1.2-3.4); Absolute Monocyte Count 0.89 10^3/uL (0.1-0.8); Absolute Neutrophil Count 5.99 10^3/uL (1.2-6.7); Basophils % 0.5; Eosinophils % 2.2; HCT 43.3 % (40.0-50.0); Immature Grans % 0.3; Lymphocytes % 17.8; MCH 29.6 pg (27.0-33.0); MCHC 34.6 % (32.0-36.0); MCV 85 fL (80-95); MPV 8.9 fL (8.0-11.0); Monocytes % 10.2; Platelet Count 321 10^3/uL (130-400); RBC 5.07 10^6/uL (4.36-5.78); RDW 12.9 % (11.8-14.1); RDW-SD 39.8 fL; WBC 8.69 10^3/uL (4.4-10.8)
[2022-07-09 09:53] LABS: ALT 19 U/L (16-63); AST 18 U/L (15-37); Albumin 3.3 g/dL (3.4-5.0); Alkaline Phosphatase 134 U/L (46-116); Anion Gap 6.8 mmol/L (3-11); BUN 23 mg/dL (7-18); Bilirubin, Total 0.4 mg/dL (0.2-1.0); CO2 28.2 mmol/L (21.0-32.0); CREATININE 1.4 mg/dL (0.70-1.30); Calcium 9.1 mg/dL (8.5-10.1); Chloride 99 mmol/L (98-107); Estimated GFR 51.77 (mL/min/1.73m2); Glucose 304 mg/dL (74-106); Potassium 4.5 mmol/L (3.5-5.1); Sodium 134 mmol/L (136-145); Total Protein 7.7 g/dL (6.4-8.2)
[2022-07-09 10:40] LABS: Bilirubin Negative (Negative); Blood Negative (Negative); Clarity Clear (Clear); Glucose >=1000 mg/dL (Negative); Ketones Negative (Negative); Leukocyte Esterase Negative (Negative); Nitrite Negative (Negative); Urobilinogen 0.2 EU/dL (Up TO 0.2); pH 6.5 (5-8)
[2022-07-09 10:48] LABS: RBC Negative HPF (0-2); WBC Negative HPF (0-5)
[2022-07-09 10:49] LABS: Bacteria Rare HPF (Negative); C & S Indicated? No; Casts Negative LPF (Negative); Crystals Negative HPF (Negative); Epithelial Cells Rare HPF (Negative); Mucus Trace (Negative); Other Cells Negative (Negative)
[2022-07-09 10:56] LABS: Hemoglobin A1C 13.2 % (<5.7)
--- NOTE | 2022-07-09 17:31 | ED.GENADUL_ITS ---
Discharge Plan Disposition Patient Disposition: HOME Condition: Stable Discharge Details Chief Complaint: GenMedical Clinical Impression: Nail avulsion, toe, Hyperglycemia, Elevated hemoglobin A1c Primary Care Provider: Asif Burr ED Provider: Rosi Schultz Home Meds and New Rx's Prescriptions: New cephalexin 500 mg capsule 500 mg PO BID Qty: 9 0RF Continued metformin 500 MG tablet 2 tab PO BID Qty: 180 amlodipine 10 MG tablet 1 tab PO DAILY Qty: 90 Rx Instructions: NORVASC hydrochlorothiazide 25 MG tablet 25 mg PO DAILY Qty: 90 pravastatin 10 MG tablet 10 mg PO DAILY Qty: 90 lisinopril 40 MG tablet 40 mg PO QAM Qty: 90 insulin glargine [Lantus Solostar U-100 Insulin] 100 UNIT/1 ML insulin pen 40 units SQ HS Qty: 1 (DME) blood-glucose meter 1 EACH misc 1 ea Miscellaneous ONCE Qty: 1 Rx Instructions: ONE TOUCH ULTRA MINI DIAGNOSIS CODE 250.02 (DME) Blood Glucose Test 1 EACH strip 1 ea Miscellaneous BID Qty: 200 Rx Instructions: FOR ONE TOUCH ULTRA MINI METER. Pt uses insulin.DIAGNOSIS CODE 250.02 (DME) lancets 1 EACH misc 1 ea Miscellaneous BID Qty: 200 Rx Instructions: FOR ONE TOUCH ULTRA MINI METER. USES INSULIN. DIAGNOSIS CODE 250.02 Victoza 3-Boris 0.6 mg/0.1 mL (18 mg/3 mL) pen injector 0.6 mg SC DAILY Qty: 3 0RF spironolactone 25 mg tablet 25 mg PO DAILY metoprolol succinate 50 mg tablet extended release 24 hr 50 mg PO DAILY Levemir FlexTouch U-100 Insuln 100 unit/mL (3 mL) insulin pen 100 unit SC DAILY furosemide 40 mg tablet 40 mg PO DAILY (DME) BD Insulin Syringe (half unit) 0.3 mL 31 gauge x 5/16 syringe See Rx Instructions .ROUTE .MEDSUPPLY Qty: 100 Rx Instructions: As directed mecobalamin (vitamin B12) 1,000 mcg tablet,disintegrating 1,000 mcg SL DAILY Rx Instructions: place tablet under tongue and allow to dissolve for at least30 secs before swallowing insulin lispro [Humalog KwikPen Insulin] 100 unit/mL insulin pen 15 unit SC TID Rx Instructions: 2-3 times daily 15 units small meals 20 units large meals metformin 1,000 mg tablet 1,000 mg PO BID lisinopril 40 mg tablet 40 mg PO DAILY amlodipine 10 mg tablet 10 mg PO DAILY atorvastatin 40 mg tablet 40 mg PO DAILY aspirin [Adult Low Dose Aspirin] 81 mg tablet,delayed release (DR/EC) 81 mg PO DAILY magnesium oxide 400 mg magnesium tablet 400 mg PO BID aspirin 81 MG tablet,chewable 1 tab PO DAILY pioglitazone 30 mg Tablet 30 mg PO DAILY insulin aspart U-100 [Novolog Flexpen U-100 Insulin] 100 unit/mL (3 mL) insulin pen 20 unit SUBCUT DAILY Label Comments: INJECT 20 UNITS SUBCUTANEOUSLY ONCE DAILY BEFORE THE BIGGEST MEAL OF THE DAY No Action doxycycline hyclate 100 mg tablet 100 mg PO BID Qty: 14 0RF Discharge Instructions Instructions: Nail Avulsion (ED) Additional Instructions: Please return immediately to the emergency department if you develop any new or worsening symptoms, if your condition does not improve as expected, or if you become otherwise concerned. It is extremely important that you call soon as possible to make an appointment to be seen in follow-up for this visit by your primary care doctor. It is also extremely important that you follow-up with your scheduled appointment with podiatry on July 17 at 1 PM. Referrals: Shirley Neville DPM [[facility] STAFF PHYSICIAN] - Asif Burr [Primary Care Provider] - Discharge Data Discharge Date/Time-TO BE ENTERED AT DEPARTURE: 07/09/22 11:39 Medical Decision Making Concern for toenail avulsion. Exam/hx at this time is not c/w fracture, cellulitis, osteomyelitis, acute vascular pathology, sepsis. Plan for topical bacitracin, prophylactic antibiotics given IDDM, tetanus booster (Pt states last tetanus was greater than 10 years ago). I discussed Pt with Dr. Burr, PCP, to ensure outpt f/u given concern for Pt developing infection. Dr. Burr states that Pt is largely non-compliant with meds, has very elevated HgbA1c, and doesn't always come to scheduled office visits. He requests that I obtain baseline labs and UA for Pt given past difficulties obtaining these on outpt basis. I discussed this with Pt, who was amenable. Labs reviewed, WBC 8.69, Na 134, Cr 1.4, HgbA1c 13.2. I also discussed Pt with Dr. Neville of podiatry who will see Pt as outpt as well. Plan for outpt f/u with Dr. Burr and podiatry. I had a discussion with Patient regarding return to emergency department precautions, home care, and importance of outpatient follow-up. Pt verbalizes understanding of the plan and is amenable. Patient discharged to home with clear plan for outpatient follow-up. All questions were answered.? Disposition decision was made weighing the risks and benefits of hospitalization versus outpatient treatment, the risk for further decompensation, and the patient's wishes. Lab Data Labs: Laboratory Tests Range/Units 07/09/22 07/09/22 07/09/22 09:22 09:22 09:22 WBC (4.4-10.8) 10^3/uL 8.69 RBC (4.36-5.78) 10^6/uL 5.07 Hgb (13.5-17.5) g/dL 15.0 Hct (40.0-50.0) % 43.3 MCV (80-95) fL 85 MCH (27.0-33.0) pg 29.6 MCHC (32.0-36.0) % 34.6 RDW (11.8-14.1) % 12.9 Plt Count (130-400) 10^3/uL 321 MPV (8.0-11.0) fL 8.9 Immature Gran % 0.3 Neutrophils % 69.0 Lymphocytes % 17.8 Monocytes % 10.2 Eosinophils % 2.2 Basophils % 0.5 Nucleated RBC % (0.0-0.3) % 0.0 Absolute Neutrophils (1.2-6.7) 10^3/uL 5.99 Absolute Lymphocytes (1.2-3.4) 10^3/uL 1.55 Absolute Monocytes (0.1-0.8) 10^3/uL 0.89 H Absolute Eosinophils (0.0-0.7) 10^3/uL 0.19 Absolute Basophils (0.0-0.2) 10^3/uL 0.04 Sodium (136-145) mmol/L 134 L Potassium (3.5-5.1) mmol/L 4.5 Chloride (98-107) mmol/L 99 Carbon Dioxide (21.0-32.0) mmol/L 28.2 Anion Gap (3-11) mmol/L 6.8 BUN (7-18) mg/dL 23 H Creatinine (0.70-1.30) mg/dL 1.4 H Est GFR (CKD-EPI 2020) (mL/min/1.73m2) 51.77 Glucose (74-106) mg/dL 304 H Hemoglobin A1c (<5.7) % 13.2 H Calcium (8.5-10.1) mg/dL 9.1 Total Bilirubin (0.2-1.0) mg/dL 0.4 AST (15-37) U/L 18 ALT (16-63) U/L 19 Alkaline Phosphatase (46-116) U/L 134 H Total Protein (6.4-8.2) g/dL 7.7 Albumin (3.4-5.0) g/dL 3.3 L Urine Color (Yellow) Urine Clarity (Clear) Urine pH (5-8) Ur Specific [place] (1.005-1.025) Urine Protein (Negative) mg/dL Urine Ketones (Negative) mg/dL Urine Blood (Negative) Urine Nitrite (Negative) Urine Bilirubin (Negative) Urine Urobilinogen (Up TO 0.2) EU/dL Ur Leukocyte Esterase (Negative) Urine RBC (0-2) HPF Urine WBC (0-5) HPF Ur Epithelial Cells (Negative) HPF Urine Crystals (Negative) HPF Urine Bacteria (Negative) HPF Urine Casts (Negative) LPF Urine Mucus (Negative) Urine Other (Negative) Ur Culture Indicated? Urine Glucose (Negative) mg/dL Range/Units 07/09/22 09:50 WBC (4.4-10.8) 10^3/uL RBC (4.36-5.78) 10^6/uL Hgb (13.5-17.5) g/dL Hct (40.0-50.0) % MCV (80-95) fL MCH (27.0-33.0) pg MCHC (32.0-36.0) % RDW (11.8-14.1) % Plt Count (130-400) 10^3/uL MPV (8.0-11.0) fL Immature Gran % Neutrophils % Lymphocytes % Monocytes % Eosinophils % Basophils % Nucleated RBC % (0.0-0.3) % Absolute Neutrophils (1.2-6.7) 10^3/uL Absolute Lymphocytes (1.2-3.4) 10^3/uL Absolute Monocytes (0.1-0.8) 10^3/uL Absolute Eosinophils (0.0-0.7) 10^3/uL Absolute Basophils (0.0-0.2) 10^3/uL Sodium (136-145) mmol/L Potassium (3.5-5.1) mmol/L Chloride (98-107) mmol/L Carbon Dioxide (21.0-32.0) mmol/L Anion Gap (3-11) mmol/L BUN (7-18) mg/dL Creatinine (0.70-1.30) mg/dL Est GFR (CKD-EPI 2020) (mL/min/1.73m2) Glucose (74-106) mg/dL Hemoglobin A1c (<5.7) % Calcium (8.5-10.1) mg/dL Total Bilirubin (0.2-1.0) mg/dL AST (15-37) U/L ALT (16-63) U/L Alkaline Phosphatase (46-116) U/L Total Protein (6.4-8.2) g/dL Albumin (3.4-5.0) g/dL Urine Color (Yellow) Yellow Urine Clarity (Clear) Clear Urine pH (5-8) 6.5 Ur Specific [place] (1.005-1.025) 1.020 Urine Protein (Negative) mg/dL >=300 H Urine Ketones (Negative) mg/dL Negative Urine Blood (Negative) Negative Urine Nitrite (Negative) Negative Urine Bilirubin (Negative) Negative Urine Urobilinogen (Up TO 0.2) EU/dL 0.2 Ur Leukocyte Esterase (Negative) Negative Urine RBC (0-2) HPF Negative Urine WBC (0-5) HPF Negative Ur Epithelial Cells (Negative) HPF Rare Urine Crystals (Negative) HPF Negative Urine Bacteria (Negative) HPF Rare Urine Casts (Negative) LPF Negative Urine Mucus (Negative) Trace Urine Other (Negative) Negative Ur Culture Indicated? No Urine Glucose (Negative) mg/dL >=1000 H HPI General Mode of arrival: ambulatory . Date/Time Provider Initiated Documentation: 07/09/22 08:35 . Limitations to Documentation: no limitations . Information obtained by: patient, RN notes reviewed and old records reviewed . HPI Narrative: Elliott Bolaños is a 77 y/o man with h/o HTN, HLD, IDDM presenting to the ED with toenail avulsion. Pt reports that last night he was cutting his right great toenail when the nail fell off completely. Pt reports that he had no pain at the time and no pain now. Some bleeding last night, no current bleeding. Pt reports that he feels well and in his usual state of health, has been walking without issue today. Denies any pain, fever, cough, SOB, vomiting, diarrhea, weakness. Reports some numbness in his feet 2/2 diabetes. Related Data Home Medications Medication Instructions Recorded Confirmed aspirin 81 mg chewable tablet 1 tab PO DAILY 10/24/12 07/09/22 amlodipine 10 mg tablet 1 tab PO DAILY #90 tabs 09/08/13 07/09/22 metformin 500 mg tablet 2 tab PO BID #180 tab-caps 09/08/13 07/09/22 hydrochlorothiazide 25 mg tablet 25 mg PO DAILY #90 tabs 11/13/13 07/09/22 pravastatin 10 mg tablet 10 mg PO DAILY #90 tabs 01/12/14 07/09/22 lisinopril 40 mg tablet 40 mg PO QAM #90 tabs 02/11/14 07/09/22 blood sugar diagnostic (Blood #200 strips 09/10/14 07/09/22 Glucose Test strips) blood-glucose meter #1 ea 09/10/14 07/09/22 insulin glargine 100 unit/mL (3 40 units SQ HS ##1 09/10/14 07/09/22 mL) subcutaneous pen (Lantus Solostar U-100 Insulin) lancets 28 gauge #200 ea 09/10/14 07/09/22 pioglitazone 30 mg tablet 30 mg PO DAILY 01/16/19 07/09/22 doxycycline hyclate 100 mg tablet 100 mg PO BID #14 tabs 11/23/19 07/09/22 insulin aspart U-100 100 unit/mL 20 unit subcut DAILY 11/23/19 07/09/22 (3 mL) subcutaneous pen (Novolog Flexpen U-100 Insulin aspart) amlodipine 10 mg tablet 10 mg PO DAILY 04/20/20 07/09/22 aspirin 81 mg tablet,delayed 81 mg PO DAILY 04/20/20 07/09/22 release (Adult Low Dose Aspirin) atorvastatin 40 mg tablet 40 mg PO DAILY 04/20/20 07/09/22 furosemide 40 mg tablet 40 mg PO DAILY 04/20/20 07/09/22 insulin detemir U-100 100 unit/mL 100 unit subcut DAILY 04/20/20 07/09/22 (3 mL) subcutaneous pen (Levemir FlexTouch U-100 Insulin) insulin lispro 100 unit/mL 15 unit subcut TID 04/20/20 07/09/22 subcutaneous pen (Humalog KwikPen (U-100) Insulin) insulin syr/ndl U100 half yovani 0.3 #100 ea 04/20/20 07/09/22 mL 31 gauge x 5/16 (BD Insulin Syringe Ultra-Fine (half unit)) liraglutide 0.6 mg/0.1 mL (18 mg/3 0.6 mg (0.1 mL) subcut DAILY #3 mL 04/20/20 07/09/22 mL) subcutaneous pen injector (Victoza 3-Boris) lisinopril 40 mg tablet 40 mg PO DAILY 04/20/20 07/09/22 magnesium oxide 400 mg PO BID 04/20/20 07/09/22 mecobalamin (vitamin B12) 1,000 1,000 mcg sublingual DAILY 04/20/20 07/09/22 mcg disintegrating tablet,sublingual metformin 1,000 mg tablet 1,000 mg PO BID 04/20/20 07/09/22 metoprolol succinate 50 mg 50 mg PO DAILY 04/20/20 07/09/22 tablet,extended release 24 hr spironolactone 25 mg tablet 25 mg PO DAILY 04/20/20 07/09/22 cephalexin 500 mg capsule 500 mg PO BID #9 caps 07/09/22 Previous Rx's Medication Instructions Recorded doxycycline hyclate 100 mg tablet 100 mg PO BID #14 tabs 11/23/19 liraglutide 0.6 mg/0.1 mL (18 mg/3 0.6 mg (0.1 mL) subcut DAILY #3 mL 04/20/20 mL) subcutaneous pen injector (Victoza 3-Boris) cephalexin 500 mg capsule 500 mg PO BID #9 caps 07/09/22 Allergies Allergy/AdvReac Type Severity Reaction Status Date / Time No Known Drug Allergies Allergy Unknown Unverified 11/23/19 02:46 General Stated Complaint: GenMedical CRISTIN: 4 Review of Systems Narrative: Constitutional: denies fevers Eyes: denies eye pain ENT: denies ear pain, dental pain, sore throat Cardiovascular: denies chest pain Respiratory: denies SOB, cough GI: denies abdominal pain, vomiting, diarrhea : denies flank pain MSK: denies back pain, neck pain, arthralgias, myalgias Skin: denies rash Neuro: denies headaches, weakness, reports chronic unchanged numbness b/l feet PFSH All Active Problems Nail avulsion, toe (Acute) Hyperglycemia (Acute) Elevated hemoglobin A1c (Acute) Parotid mass (Acute) Medical History Diabetes Hypercholesteremia Hypertension Surgical History Appendectomy AGE 15 Colonoscopy - IV Sedation DR.C Sobia GUILLERMO;3 POLYPS Colonoscopy - MAC (~2001) polyps and diverticulosis KNEE REPAIR chronic pain and collagenous disruption. LASER SURGERY LEFT EYE Rotator Cuff Repair LEFT Social History Smoking/Tobacco Use Status: Current every day Tobacco Type: pipe Smoking risk assessment performed?: Yes Alcohol Intake: never Drug use: Never Substance use type: does not use Do you feel safe at home: Yes Do you feel safe in your relationship?: Yes Exam Narrative Exam Narrative: Constitutional: well and [id number], pleasant, conversing normally HENT: head atraumatic/normocephalic/normal inspection, mucous membranes moist Eyes: conjunctiva normal, sclera normal, pupils 3mm b/l Neck: no stridor, normal ROM, trachea midline Resp: normal work of breathing, speaking in full sentences Cardio: normal rate, normal rhythm Skin: warm, dry, normal color, no rash Neuro: alert, not altered, grossly non-focal, normal tone Ext: b/l feet with yellow thickened toenails extending beyond toes, right great toe with fully avulsed nail and exposed nailbed, no bleeding, no laceration, no tenderness or crepitus of right great toe, toes warm and well perfused Psych: normal mood, normal affect, normal behavior Course Vital Signs Vital signs: Vital Signs Temperature 37 C 07/09/22 08:32 Pulse 70 07/09/22 08:32 Respiratory Rate 18 07/09/22 08:32 Blood Pressure 142/80 H 07/09/22 08:32 Pulse Oximetry 99 07/09/22 08:32 Temperature 37 C 07/09/22 08:32 Temperature Source Temporal Artery Scan 07/09/22 08:32 Pulse 70 07/09/22 08:32 Respiratory Rate 20 07/09/22 08:51 Respiratory Effort Non-Labored 07/09/22 08:51 Respiratory Depth Normal 07/09/22 08:51 Respiratory Pattern Normal 07/09/22 08:51 Blood Pressure 142/80 H 07/09/22 08:32 Blood Pressure Position Sitting 07/09/22 08:32 Pulse Oximetry 99 07/09/22 08:32 Oxygen Delivery Method Room Air 07/09/22 08:32 Oxygen Flow Rate 0 07/09/22 08:32 Pain Level 4 07/09/22 08:32 Lab/Test Results Lab/Test Results: Laboratory Tests Range/Units 07/09/22 07/09/22 07/09/22 09:22 09:22 09:22 WBC (4.4-10.8) 10^3/uL 8.69 RBC (4.36-5.78) 10^6/uL 5.07 Hgb (13.5-17.5) g/dL 15.0 Hct (40.0-50.0) % 43.3 MCV (80-95) fL 85 MCH (27.0-33.0) pg 29.6 MCHC (32.0-36.0) % 34.6 RDW (11.8-14.1) % 12.9 Plt Count (130-400) 10^3/uL 321 MPV (8.0-11.0) fL 8.9 Immature Gran % 0.3 Neutrophils % 69.0 Lymphocytes % 17.8 Monocytes % 10.2 Eosinophils % 2.2 Basophils % 0.5 Nucleated RBC % (0.0-0.3) % 0.0 Absolute Neutrophils (1.2-6.7) 10^3/uL 5.99 Absolute Lymphocytes (1.2-3.4) 10^3/uL 1.55 Absolute Monocytes (0.1-0.8) 10^3/uL 0.89 H Absolute Eosinophils (0.0-0.7) 10^3/uL 0.19 Absolute Basophils (0.0-0.2) 10^3/uL 0.04 Sodium (136-145) mmol/L 134 L Potassium (3.5-5.1) mmol/L 4.5 Chloride (98-107) mmol/L 99 Carbon Dioxide (21.0-32.0) mmol/L 28.2 Anion Gap (3-11) mmol/L 6.8 BUN (7-18) mg/dL 23 H Creatinine (0.70-1.30) mg/dL 1.4 H Est GFR (CKD-EPI 2020) (mL/min/1.73m2) 51.77 Glucose (74-106) mg/dL 304 H Hemoglobin A1c (<5.7) % 13.2 H Calcium (8.5-10.1) mg/dL 9.1 Total Bilirubin (0.2-1.0) mg/dL 0.4 AST (15-37) U/L 18 ALT (16-63) U/L 19 Alkaline Phosphatase (46-116) U/L 134 H Total Protein (6.4-8.2) g/dL 7.7 Albumin (3.4-5.0) g/dL 3.3 L Urine Color (Yellow) Urine Clarity (Clear) Urine pH (5-8) Ur Specific [place] (1.005-1.025) Urine Protein (Negative) mg/dL Urine Ketones (Negative) mg/dL Urine Blood (Negative) Urine Nitrite (Negative) Urine Bilirubin (Negative) Urine Urobilinogen (Up TO 0.2) EU/dL Ur Leukocyte Esterase (Negative) Urine RBC (0-2) HPF Urine WBC (0-5) HPF Ur Epithelial Cells (Negative) HPF Urine Crystals (Negative) HPF Urine Bacteria (Negative) HPF Urine Casts (Negative) LPF Urine Mucus (Negative) Urine Other (Negative) Ur Culture Indicated? Urine Glucose (Negative) mg/dL Range/Units 07/09/22 09:50 WBC (4.4-10.8) 10^3/uL RBC (4.36-5.78) 10^6/uL Hgb (13.5-17.5) g/dL Hct (40.0-50.0) % MCV (80-95) fL MCH (27.0-33.0) pg MCHC (32.0-36.0) % RDW (11.8-14.1) % Plt Count (130-400) 10^3/uL MPV (8.0-11.0) fL Immature Gran % Neutrophils % Lymphocytes % Monocytes % Eosinophils % Basophils % Nucleated RBC % (0.0-0.3) % Absolute Neutrophils (1.2-6.7) 10^3/uL Absolute Lymphocytes (1.2-3.4) 10^3/uL Absolute Monocytes (0.1-0.8) 10^3/uL Absolute Eosinophils (0.0-0.7) 10^3/uL Absolute Basophils (0.0-0.2) 10^3/uL Sodium (136-145) mmol/L Potassium (3.5-5.1) mmol/L Chloride (98-107) mmol/L Carbon Dioxide (21.0-32.0) mmol/L Anion Gap (3-11) mmol/L BUN (7-18) mg/dL Creatinine (0.70-1.30) mg/dL Est GFR (CKD-EPI 2020) (mL/min/1.73m2) Glucose (74-106) mg/dL Hemoglobin A1c (<5.7) % Calcium (8.5-10.1) mg/dL Total Bilirubin (0.2-1.0) mg/dL AST (15-37) U/L ALT (16-63) U/L Alkaline Phosphatase (46-116) U/L Total Protein (6.4-8.2) g/dL Albumin (3.4-5.0) g/dL Urine Color (Yellow) Yellow Urine Clarity (Clear) Clear Urine pH (5-8) 6.5 Ur Specific [place] (1.005-1.025) 1.020 Urine Protein (Negative) mg/dL >=300 H Urine Ketones (Negative) mg/dL Negative Urine Blood (Negative) Negative Urine Nitrite (Negative) Negative Urine Bilirubin (Negative) Negative Urine Urobilinogen (Up TO 0.2) EU/dL 0.2 Ur Leukocyte Esterase (Negative) Negative Urine RBC (0-2) HPF Negative Urine WBC (0-5) HPF Negative Ur Epithelial Cells (Negative) HPF Rare Urine Crystals (Negative) HPF Negative Urine Bacteria (Negative) HPF Rare Urine Casts (Negative) LPF Negative Urine Mucus (Negative) Trace Urine Other (Negative) Negative Ur Culture Indicated? No Urine Glucose (Negative) mg/dL >=1000 H
== END 2022-07-09 11:39 | disposition home or self-care (01) ==
PROVIDERS: Emergency Provider Student in an Organized Health Care Education/Training Program; PCP Family Medicine
DX: S91.201A Unspecified open wound of right great toe with damage to nail, initial encounter (principal); E10.65 Type 1 diabetes mellitus with hyperglycemia; I10 Essential (primary) hypertension; E78.00 Pure hypercholesterolemia, unspecified; Z23 Encounter for immunization; Z79.82 Long term (current) use of aspirin; Z79.84 Long term (current) use of oral hypoglycemic drugs; Z79.4 Long term (current) use of insulin; W45.8XXA Other foreign body or object entering through skin, initial encounter; Y93.89 Activity, other specified
CPT/HCPCS: 80053; 90471; 99283; 81003; 81015; 83036; 85025; 99284

== ENCOUNTER 2022-08-17 12:19 | Emergency (ER) | payer MEDICARE, SELFPAY ==
[2022-08-17 12:25] VITALS: BP 114/69; PULSE 65; RESP 16; TEMP 36.7; O2SAT 100
--- NOTE | 2022-08-17 13:30 | DI.CT_ITS ---
Exam(s) CT ABD AORTA CTA W RUNOFF EXAM: CT ABD AORTA CTA W RUNOFF CLINICAL HISTORY: necrotic 1st and 2nd toes, dim pulse. TECHNIQUE: Imaging Protocol: Axial CT angiography was performed with multi-slice acquisition and mu lti-planar and/or 3D reconstructions. CONTRAST MATERIAL: Intravenous: Omnipaque 350 Contrast volume:150 mL Oral: No COMPARISON: CT ABD/PELVIS WO W CONTRAST from 10/01/2012 FINDINGS: Vascular Structures: Abdomen and pelvis: Celiac Sunset/SMA: No evidence of occlusion or significant stenosis. Mild atherosclerosis. Renal Arteries: There is no evidence of occlusion. There is stenosis of the origin of the right renal artery. There is a single renal artery perfusing each kidney. Aorta: No aneurysm, occlusion or significant stenosis. No dissection. Atherosclerosis is present. Iliac Arteries: There is no evidence of occlusion. There is marked atherosclerosis and mural thrombu s seen in the common iliacs, external iliacs and internal iliacs bilaterally. There is a large athero sclerotic plaque in the proximal right common iliac artery with a large ulcer extending into the lume n. There is also large calcified and noncalcified plaque at the distal right external iliac artery wi th mild luminal narrowing. There is prominent stenosis at the origin of the left internal iliac arter y. 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 The distal super ficial femoral artery is reconstituted and extends into the popliteal artery. Deep Femoral Artery: No evidence of occlusion but plaques is present. Popliteal: Near complete occlusion of the proximal right popliteal artery. Knee Trifurcation: No evidence of occlusion or significant stenosis. Anterior Tibial: There is occlusion of the proximal right anterior tibial artery. Posterior Tibial: No evidence of occlusion or significant stenosis. Peroneal:No evidence of occlusion or significant stenosis. Dorsalis Pedis: There is reconstitution of the right dorsalis pedis artery at the ankle. Left: Femoral: No evidence of occlusion but there is significant atherosclerotic plaque. Multifocal regions of narrowing are noted. Deep femoral artery: No evidence of occlusion or significant stenosis. Popliteal: No evidence ofocclusion or significant stenosis. Knee Trifurcation: There does appear to be occlusion of the trifurcation distally. Anterior tibial: There is complete occlusion of the left anterior tibial artery. Posterior Tibial: There is occlusion of the left posterior tibial artery. Peroneal: Occluded proximally but does reconstitute distally. Dorsalis Pedis: Does appear to be at least partial occlusion of the dorsalis pedis artery. Soft Tissues: Lung bases: Clear. Liver: Normal density. No measurable mass. Gallbladder and biliary tract: Cholelithiasis. No biliary ductal dilatation. Pancreas: Normal density, no abnormal calcifications or inflammatory process. Spleen: Calcified granuloma. Kidneys: Normal size, contour and axis. No radiodense stones or obstructive uropathy. Stable right re nal cyst. Adrenal glands: No masses seen. Aorta: Abdominal portion non-dilated. Atherosclerosis. Bladder: Symmetric distention, no gross wall thickening. Bowel: No obstruction or bowel wall thickening. There is no evidence of appendicitis. Soft tissues: Unremarkable. Peritoneal cavity: No ascites, collection or mesenteric inflammatory response. No free air. Reproductive organs: The prostate gland is mildly enlarged. Bones: Within normal limits for the patient's age. There is L5 spondylolysis. There is grade 1 spond ylolisthesis of L5 on S1. IMPRESSION: 1. Extensive atherosclerosis without evidence of abdominal aortic aneurysm or dissection. There is st enosis at the origin of the right renal artery. 2. Ulcerating plaque in the right common iliac artery. Significant stenosis at the origin of the left internal iliac artery. 3. 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 4. Stenosis and occlusion seen in the infra popliteal arteries bilaterally. Please see the above disc ussion for complete details. RADIATION DOSE DELIVERED: 994.08mGy.cm Total DLP 994.08mGy.cm Total DLP DATA REPOSITORY: All CT scans at this facility are submitted to the National Radiology Data Registry (NRDR) Dose Index Registry (DIR) with the [employer] ([employer]). RADIATION OPTIMIZATION: All CT scans at this facility use at least one of these dose optimization te chniques: automated exposure control; mA and/or kV adjustment per patient size (includes targeted exa ms where dose is matched to clinical indication); or iterative reconstruction.
[2022-08-17 14:13] LABS: Abs Immature Grans 0.04 10^3/uL (0.0-0.06); Absolute Basophil Count 0.03 10^3/uL (0.0-0.2); Absolute Eosinophil Count 0.12 10^3/uL (0.0-0.7); Absolute Lymphocyte Count 1.48 10^3/uL (1.2-3.4); Absolute Monocyte Count 0.77 10^3/uL (0.1-0.8); Absolute Neutrophil Count 6.79 10^3/uL (1.2-6.7); Basophils % 0.3; Eosinophils % 1.3; HCT 41.3 % (40.0-50.0); HGB 13.6 g/dL (13.5-17.5); Immature Grans % 0.4; MCHC 32.9 % (32.0-36.0); MCV 88 fL (80-95); MPV 8.5 fL (8.0-11.0); Monocytes % 8.3; Neutrophils % 73.7; Platelet Count 362 10^3/uL (130-400); RBC 4.69 10^6/uL (4.36-5.78); RDW 13.2 % (11.8-14.1); RDW-SD 42.3 fL; WBC 9.23 10^3/uL (4.4-10.8)
[2022-08-17 14:27] LABS: Prothrombin Time 9.8 sec (9.3-11.0)
[2022-08-17 14:31] LABS: ALT 18 U/L (16-63); AST 15 U/L (15-37); Albumin 2.9 g/dL (3.4-5.0); Alkaline Phosphatase 118 U/L (46-116); Anion Gap 6.9 mmol/L (3-11); BUN 19 mg/dL (7-18); Bilirubin, Total 0.4 mg/dL (0.2-1.0); CO2 30.1 mmol/L (21.0-32.0); CREATININE 1.2 mg/dL (0.70-1.30); Calcium 9.1 mg/dL (8.5-10.1); Chloride 103 mmol/L (98-107); Estimated GFR 62.29 (mL/min/1.73m2); Glucose 142 mg/dL (74-106); Potassium 3.8 mmol/L (3.5-5.1); Sodium 140 mmol/L (136-145); Total Protein 7.7 g/dL (6.4-8.2)
[2022-08-17] MEDS: Normal Saline - Diluent 50 ML VIAL IJ (15:30)
[2022-08-17] MEDS: Omnipaque 350 MG/ML 100 ML BTL IJ ×2 (15:30→15:32)
[2022-08-17] MEDS: Normal Saline Flush 10 ML SYR IVP (15:31)
--- NOTE | 2022-08-17 15:57 | W.ED.GENAD ---
Discharge Plan Disposition Patient Disposition: Home Condition: Stable Discharge Details Clinical Impression: Gangrenous toe Primary Care Provider: Asif Burr ED Provider: Pedro Pablo Alvarez Home Meds and New Rx's Prescriptions: New aspirin [Adult Aspirin Regimen] 81 mg tablet,delayed release (DR/EC) 81 mg PO DAILY Qty: 30 0RF Continued metformin 500 MG tablet 2 tab PO BID Qty: 180 amlodipine 10 MG tablet 1 tab PO DAILY Qty: 90 Rx Instructions: NORVASC hydrochlorothiazide 25 MG tablet 25 mg PO DAILY Qty: 90 pravastatin 10 MG tablet 10 mg PO DAILY Qty: 90 insulin glargine [Lantus Solostar U-100 Insulin] 100 UNIT/1 ML insulin pen 40 units SQ HS Qty: 1 (DME) blood-glucose meter 1 EACH misc 1 ea Miscellaneous ONCE Qty: 1 Rx Instructions: ONE TOUCH ULTRA MINI DIAGNOSIS CODE 250.02 (DME) Blood Glucose Test 1 EACH strip 1 ea Miscellaneous BID Qty: 200 Rx Instructions: FOR ONE TOUCH ULTRA MINI METER. Pt uses insulin.DIAGNOSIS CODE 250.02 (DME) lancets 1 EACH misc 1 ea Miscellaneous BID Qty: 200 Rx Instructions: FOR ONE TOUCH ULTRA MINI METER. USES INSULIN. DIAGNOSIS CODE 250.02 Victoza 3-Boris 0.6 mg/0.1 mL (18 mg/3 mL) pen injector 0.6 mg SC DAILY Qty: 3 0RF spironolactone 25 mg tablet 25 mg PO DAILY metoprolol succinate 50 mg tablet extended release 24 hr 50 mg PO DAILY Levemir FlexTouch U-100 Insuln 100 unit/mL (3 mL) insulin pen 100 unit SC DAILY furosemide 40 mg tablet 40 mg PO DAILY (DME) BD Insulin Syringe (half unit) 0.3 mL 31 gauge x 5/16 syringe See Rx Instructions .ROUTE .MEDSUPPLY Qty: 100 Rx Instructions: As directed insulin lispro [Humalog KwikPen Insulin] 100 unit/mL insulin pen 15 unit SC TID Rx Instructions: 2-3 times daily 15 units small meals 20 units large meals metformin 1,000 mg tablet 1,000 mg PO BID lisinopril 40 mg tablet 40 mg PO DAILY atorvastatin 40 mg tablet 40 mg PO DAILY pioglitazone 30 mg Tablet 30 mg PO DAILY insulin aspart U-100 [Novolog Flexpen U-100 Insulin] 100 unit/mL (3 mL) insulin pen 20 unit SUBCUT DAILY Label Comments: INJECT 20 UNITS SUBCUTANEOUSLY ONCE DAILY BEFORE THE BIGGEST MEAL OF THE DAY Discharge Instructions Additional Instructions: I have spoken both with our surgical team and vascular surgery at [facility]. At this time you would rather go home and have this done as an outpatient. Vascular surgery recommends you take a baby aspirin a day and their office will be reaching out to you to set up outpatient follow-up. I have placed you on our care management list to help expedite outpatient follow-up through our facility. Please reach out to the office of Dr. Ospina to discuss your ER visit and need for outpatient reevaluation. In the meantime, please watch for new or worsening symptoms and return immediately to the ER. Referrals: Abilio Ospina MD [ [facility] STAFF PHYSICIAN] - Discharge Data Discharge Date/Time-TO BE ENTERED AT DEPARTURE: 08/17/22 19:57 Medical Decision Making <MARBELLA Rodríguez - Last Filed: 08/18/22 10:48> This 77-year-old male with history of insulin-dependent diabetic diabetes presents with necrotic toes Secondary to diminished pulses in his affected lower extremity, CTA was ordered and diagnostic blood work No evidence of cellulitis or lymphangitis Care will be transitioned to Pedro Pablo Alvarez pending cta and dispositon <MARBELLA Ortega - Last Filed: 08/17/22 20:55> This 77-year-old male with history of insulin-dependent diabetic diabetes presents with necrotic toes Secondary to diminished pulses in his affected lower extremity, CTA was ordered and diagnostic blood work No evidence of cellulitis or lymphangitis Care will be transitioned to Pedro Pablo Alvarez pending cta and dispositon 1530: Pedro Pablo Alvarez PA-C I assumed care of this 77-year-old gentleman from my colleague MARBELLA Morel, please see her initial HPI and examination. Patient presents with acute gangrenous toes of the right foot. At time of signout awaiting CTA. CTA resulted as below. Discussed findings with patient. Patient is ambulatory, eating dinner without difficulty Pleasant. Reports minimal discomfort in his toes. No other concerns at this time. Images were pushed to [facility] and I was able to speak with vascular, Dr. Mas. He personally reviewed the images, no intervention is needed immediately but he will have his office contact the patient to set up outpatient follow-up. Patient is already on 2 statins, recommends initiating a baby aspirin daily. I then discussed the case with our surgical team, Dr. Ospina. Given the patient is without fever, leukocytosis, obvious signs of infection or sepsis he feels as though if the gangrene is dry then this can be set up for outpatient surgery within the week. If the gangrene appears wet that he would recommend admission to our hospitalist team and he would consultative and amputate tomorrow. I discussed both of my conversations with the vascular surgeon and general surgeon to the patient. I personally evaluated him, his toes appear gangrenous but dry in nature. No signs of secondary infection. Patient wants to be discharged and wants to have this done next week as an outpatient. He understands to return immediately for new or worsening symptoms. I have placed him on the care management list to help expedite outpatient surgical follow-up. Strict discharge and return precautions were provided. Patient understands, is agreeable to this plan, and has no additional questions or concerns upon discharge. This documentation was generated using [employer] system, please disregard any oddities of phrase or misspellings. Medical Records Medical records reviewed: Yes I reviewed the patient's medical records. Imaging Data Radiologic Study: Attestation: I personally reviewed and interpreted this imaging study as follows: Imaging: CT Scan Radiologist's impression: PROCEDURE INFORMATION: Exam: CTA Abdominal Aorta and Bilateral Lower Extremities (Run-off) With Contrast Exam date and time: 08/17/2022 3:18 PM Age: 77 years old Clinical indication: Necrotic 1st and 2nd toes, dim pulse TECHNIQUE: Imaging protocol: Computed tomographic angiography of the of the abdominal aorta, pelvis and bilateral lower extremities with contrast. 3D rendering (Not supervised by radiologist): MIP and/or 3D reconstructed images were created by the technologist. Contrast material: OMNIPAQUE 350; Contrast volume: 150 ml; Contrast route: INTRAVENOUS (IV); COMPARISON: No relevant prior studies available. FINDINGS: Aorta: Atherosclerotic plaque noted throughout the abdominal aorta with mild narrowing. No abdominal aortic aneurysm. Celiac trunk and mesenteric arteries: No occlusion or significant stenosis. Renal arteries: There is stenosis at the origin right renal artery. Right iliac arteries: There is a large atherosclerotic plaque in the proximal right common iliac artery with stenosis of the lumen, with large ulcerating plaque extending into the lumen. There is a large noncalcified and calcified atherosclerotic plaque at the distal right external iliac artery with mild narrowing of the lumen. Right femoral/popliteal arteries: There is complete occlusion of the right superficial femoral artery from its origin to its distal segment. The right profundus femoris artery patent but demonstrates multifocal plaque. There is reconstitution the right superficial femoral artery at its distal segment which supplies the popliteal artery. The right popliteal artery is almost completely occluded from its proximal segment.Right infrapopliteal arteries: The right posterior tibial artery is patent. Right peroneal artery is patent. The right anterior tibial artery is occluded proximally. There is reconstitution in the right dorsalis pedis artery at the ankle. Left iliac arteries: There is significant atherosclerotic plaque in the left common iliac artery. There is prominent focal stenosis at the origin the left internal iliac artery. Left external iliac arteries patent. Left femoral/popliteal arteries: The left superficial femoral artery demonstrates significant atherosclerotic plaque without occlusion. Multifocal regions of narrowing noted. The left popliteal artery is patent for most of its course, although there is occlusion at the trifurcation distally. Left infrapopliteal arteries: The left peroneal artery is occluded at its origin but demonstrates proximal reconstitution. There is complete occlusion of the left anterior tibial artery. The left dorsalis pedis artery demonstrates minimal contrast enhancement suggestive of at least partial occlusion. There is occlusion of the origin of the left posterior tibial artery, however reconstitution is noted proximally. Liver: Unremarkable liver. No mass identified. Gallbladder and bile ducts: Cholelithiasis noted without evidence of acute cholecystitis. Pancreas: No pancreatic lesion seen. Spleen: No splenomegaly. No ductal dilation. Adrenal glands: The adrenal glands are unremarkable. No defined mass. Kidneys and ureters: There is a 3.4 cm simple appearing cyst in the right kidney. No hydronephrosis. Stomach and bowel: No obstruction. No mucosal thickening. Appendix: No evidence of appendicitis. Urinary bladder: Unremarkable. No mass. Reproductive: Unremarkable as visualized. Intraperitoneal space: Unremarkable. No free air. No significant fluid collection. Lymph nodes: No enlarged lymph nodes. Bones/joints: No acute fracture. There is a bipartite appearance of the right patella. Lumbar spine degenerative changes noted. Soft tissues: No significant subcutaneous soft tissue abnormality. IMPRESSION: 1. Atherosclerotic plaque throughout the abdominal aorta without evidence of aortic aneurysm. Stenosis noted at the origin of the right renal artery. 2. Large ulcerating plaque in the right common iliac artery with narrowing and prominent stenosis at the origin of the left internal iliac artery. 3. 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 4. Multifocal occlusion and stenosis in the bilateral popliteal and infrapopliteal arteries are described. 5. No evidence of acute pathology in the abdomen and pelvis. Thank you for allowing us to participate in the care of your patient. Lab Data Lab results reviewed: Yes I reviewed the patient's lab results. Labs: Laboratory Tests Range/Units 08/17/22 08/17/22 08/17/22 14:06 14:06 14:06 WBC (4.4-10.8) 10^3/uL 9.23 RBC (4.36-5.78) 10^6/uL 4.69 Hgb (13.5-17.5) g/dL 13.6 Hct (40.0-50.0) % 41.3 MCV (80-95) fL 88 MCH (27.0-33.0) pg 29.0 MCHC (32.0-36.0) % 32.9 RDW (11.8-14.1) % 13.2 Plt Count (130-400) 10^3/uL 362 MPV (8.0-11.0) fL 8.5 Immature Gran % 0.4 Neutrophils % 73.7 Lymphocytes % 16.0 Monocytes % 8.3 Eosinophils % 1.3 Basophils % 0.3 Nucleated RBC % (0.0-0.3) % 0.0 Absolute Neutrophils (1.2-6.7) 10^3/uL 6.79 H Absolute Lymphocytes (1.2-3.4) 10^3/uL 1.48 Absolute Monocytes (0.1-0.8) 10^3/uL 0.77 Absolute Eosinophils (0.0-0.7) 10^3/uL 0.12 Absolute Basophils (0.0-0.2) 10^3/uL 0.03 PT (9.3-11.0) sec 9.8 INR (0.9-1.1) 1.0 Sodium (136-145) mmol/L 140 Potassium (3.5-5.1) mmol/L 3.8 Chloride (98-107) mmol/L 103 Carbon Dioxide (21.0-32.0) mmol/L 30.1 Anion Gap (3-11) mmol/L 6.9 BUN (7-18) mg/dL 19 H Creatinine (0.70-1.30) mg/dL 1.2 Est GFR (CKD-EPI 2020) (mL/min/1.73m2) 62.29 Glucose (74-106) mg/dL 142 H Calcium (8.5-10.1) mg/dL 9.1 Total Bilirubin (0.2-1.0) mg/dL 0.4 AST (15-37) U/L 15 ALT (16-63) U/L 18 Alkaline Phosphatase (46-116) U/L 118 H Total Protein (6.4-8.2) g/dL 7.7 Albumin (3.4-5.0) g/dL 2.9 L HPI <MARBELLA Rodríguez - Last Filed: 08/18/22 10:48> General Date/Time Provider Initiated Documentation: 08/17/22 13:11. HPI Narrative: This 77-year-old gentleman with history of hypertension and insulin-dependent diabetes presents with report of necrotic toes for the past 3 weeks. Denies any pain. Saw his doctor today who requested that he present to the emergency department. Denies any fever or chills. Denies known trauma to the affected area. States his blood sugars have been within normal limits. Related Data Home Medications Medication Instructions Recorded Confirmed amlodipine 10 mg tablet 1 tab PO DAILY #90 tabs 09/08/13 08/17/22 metformin 500 mg tablet 2 tab PO BID #180 tab-caps 09/08/13 08/17/22 hydrochlorothiazide 25 mg tablet 25 mg PO DAILY #90 tabs 11/13/13 08/17/22 pravastatin 10 mg tablet 10 mg PO DAILY #90 tabs 01/12/14 08/17/22 blood sugar diagnostic (Blood #200 strips 09/10/14 07/09/22 Glucose Test strips) blood-glucose meter #1 ea 09/10/14 07/09/22 insulin glargine 100 unit/mL (3 40 units SQ HS ##1 09/10/14 08/17/22 mL) subcutaneous pen (Lantus Solostar U-100 Insulin) lancets 28 gauge #200 ea 09/10/14 07/09/22 pioglitazone 30 mg tablet 30 mg PO DAILY 01/16/19 08/17/22 insulin aspart U-100 100 unit/mL 20 unit subcut DAILY 11/23/19 08/17/22 (3 mL) subcutaneous pen (Novolog Flexpen U-100 Insulin aspart) atorvastatin 40 mg tablet 40 mg PO DAILY 04/20/20 08/17/22 furosemide 40 mg tablet 40 mg PO DAILY 04/20/20 08/17/22 insulin detemir U-100 100 unit/mL 100 unit subcut DAILY 04/20/20 08/17/22 (3 mL) subcutaneous pen (Levemir FlexTouch U-100 Insulin) insulin lispro 100 unit/mL 15 unit subcut TID 04/20/20 08/17/22 subcutaneous pen (Humalog KwikPen (U-100) Insulin) insulin syr/ndl U100 half yovani 0.3 #100 ea 04/20/20 07/09/22 mL 31 gauge x 5/16 (BD Insulin Syringe Ultra-Fine (half unit)) liraglutide 0.6 mg/0.1 mL (18 mg/3 0.6 mg (0.1 mL) subcut DAILY #3 mL 04/20/20 08/17/22 mL) subcutaneous pen injector (Victoza 3-Boris) lisinopril 40 mg tablet 40 mg PO DAILY 04/20/20 08/17/22 metformin 1,000 mg tablet 1,000 mg PO BID 04/20/20 08/17/22 metoprolol succinate 50 mg 50 mg PO DAILY 04/20/20 08/17/22 tablet,extended release 24 hr spironolactone 25 mg tablet 25 mg PO DAILY 04/20/20 08/17/22 aspirin 81 mg tablet,delayed 81 mg PO DAILY #30 tabs 08/17/22 release (Adult Aspirin Regimen) Previous Rx's Medication Instructions Recorded liraglutide 0.6 mg/0.1 mL (18 mg/3 0.6 mg (0.1 mL) subcut DAILY #3 mL 04/20/20 mL) subcutaneous pen injector (Victoza 3-Boris) aspirin 81 mg tablet,delayed 81 mg PO DAILY #30 tabs 08/17/22 release (Adult Aspirin Regimen) Allergies Allergy/AdvReac Type Severity Reaction Status Date / Time No Known Drug Allergies Allergy Unknown Unverified 08/17/22 12:29 General Stated Complaint: Orthopedic CRISTIN: 3 Review of Systems <MARBELLA Rodríguez - Last Filed: 08/18/22 10:48> All systems reviewed & are unremarkable except as noted in HPI and below PFSH <MARBELLA Rodríguez - Last Filed: 08/18/22 10:48> All Active Problems (Updated 08/17/22 @ 19:36 by MARBELLA Ortega) Gangrenous toe (Acute) Parotid mass (Acute) Medical History (Updated 08/17/22 @ 19:36 by MARBELLA Ortega) Diabetes Hypercholesteremia Hypertension Surgical History Appendectomy AGE 15 Colonoscopy - IV Sedation DR.C Sobia GUILLERMO;3 POLYPS Colonoscopy - MAC (~2001) polyps and diverticulosis KNEE REPAIR chronic pain and collagenous disruption. LASER SURGERY LEFT EYE Rotator Cuff Repair LEFT Social History Smoking/Tobacco Use Status: Current every day Tobacco Type: pipe Smoking risk assessment performed?: Yes Alcohol Intake: never Drug use: Never Substance use type: does not use Do you feel safe at home: Yes Do you feel safe in your relationship?: Yes Exam <MARBELLA Rodríguez - Last Filed: 08/18/22 10:48> Const General: cooperative and comfortable Resp Effort & Inspection: normal respiratory effort Auscultation: clear to auscultation bilaterally Cardio Rate: regular rate Rhythm: regular rhythm GI Inspection: normal to inspection Skin Other: Necrotic right second and first digits Neuro General: patient alert and patient oriented x3 Extrem Other: Rate first and second digits necrotic, no palpable pulses, minimal dopplerable pulses Course <MARBELLA Rodríguez Last Filed: 08/18/22 10:48> Vital Signs Vital signs: Vital Signs Temperature 36.7 C 08/17/22 12:25 Pulse 65 08/17/22 12:25 Respiratory Rate 16 08/17/22 12:25 Blood Pressure 114/69 08/17/22 12:25 Pulse Oximetry 100 08/17/22 12:25 Temperature 36.7 C 08/17/22 12:25 Temperature Source Skin 12/23/22 12:25 Pulse 65 08/17/22 12:25 Respiratory Rate 16 08/17/22 12:25 Respiratory Effort 08/17/22 12:28 Blood Pressure 114/69 08/17/22 12:25 Blood Pressure Position Sitting 08/17/22 12:25 Pulse Oximetry 100 08/17/22 12:25 Oxygen Delivery Method Room Air 08/17/22 12:25 Oxygen Flow Rate 0 08/17/22 12:25 Pain Level 0 08/17/22 12:25 Lab/Test Results Lab/Test Results: Laboratory Tests Range/Units 08/17/22 08/17/22 08/17/22 14:06 14:06 14:06 WBC (4.4-10.8) 10^3/uL 9.23 RBC (4.36-5.78) 10^6/uL 4.69 Hgb (13.5-17.5) g/dL 13.6 Hct (40.0-50.0) % 41.3 MCV (80-95) fL 88 MCH (27.0-33.0) pg 29.0 MCHC (32.0-36.0) % 32.9 RDW (11.8-14.1) % 13.2 Plt Count (130-400) 10^3/uL 362 MPV (8.0-11.0) fL 8.5 Immature Gran % 0.4 Neutrophils % 73.7 Lymphocytes % 16.0 Monocytes % 8.3 Eosinophils % 1.3 Basophils % 0.3 Nucleated RBC % (0.0-0.3) % 0.0 Absolute Neutrophils (1.2-6.7) 10^3/uL 6.79 H Absolute Lymphocytes (1.2-3.4) 10^3/uL 1.48 Absolute Monocytes (0.1-0.8) 10^3/uL 0.77 Absolute Eosinophils (0.0-0.7) 10^3/uL 0.12 Absolute Basophils (0.0-0.2) 10^3/uL 0.03 PT (9.3-11.0) sec 9.8 INR (0.9-1.1) 1.0 Sodium (136-145) mmol/L 140 Potassium (3.5-5.1) mmol/L 3.8 Chloride (98-107) mmol/L 103 Carbon Dioxide (21.0-32.0) mmol/L 30.1 Anion Gap (3-11) mmol/L 6.9 BUN (7-18) mg/dL 19 H Creatinine (0.70-1.30) mg/dL 1.2 Est GFR (CKD-EPI 2020) (mL/min/1.73m2) 62.29 Glucose (74-106) mg/dL 142 H Calcium (8.5-10.1) mg/dL 9.1 Total Bilirubin (0.2-1.0) mg/dL 0.4 AST (15-37) U/L 15 ALT (16-63) U/L 18 Alkaline Phosphatase (46-116) U/L 118 H Total Protein (6.4-8.2) g/dL 7.7 Albumin (3.4-5.0) g/dL 2.9 L Sign Out <MARBELLA Rodríguez - Last Filed: 08/18/22 10:48> Sign Out Data: Sign Out Comment: pending cta and disposition Last updated by Pam Morel PA at 08/17/22 16:18
[2022-08-17 16:27] VITALS: BP 154/88; PULSE 79; RESP 18; TEMP 38.6; O2SAT 100
--- NOTE | 2022-08-17 17:28 | DI.VRAD_ITS ---
PROCEDURE INFORMATION: Exam: CTA Abdominal Aorta and Bilateral Lower Extremities (Run-off) With Contrast Exam date and time: 08/17/2022 3:18 PM Age: 77 years old Clinical indication: Necrotic 1st and 2nd toes, dim pulse TECHNIQUE: Imaging protocol: Computed tomographic angiography of the of the abdominal aorta, pelvis and bilateral lower extremities with contrast. 3D rendering (Not supervised by radiologist): MIP and/or 3D reconstructed images were created by the technologist. Contrast material: OMNIPAQUE 350; Contrast volume: 150 ml; Contrast route: INTRAVENOUS (IV); COMPARISON: No relevant prior studies available. FINDINGS: Aorta: Atherosclerotic plaque noted throughout the abdominal aorta with mild narrowing. No abdominal aortic aneurysm. Celiac trunk and mesenteric arteries: No occlusion or significant stenosis. Renal arteries: There is stenosis at the origin right renal artery. Right iliac arteries: There is a large atherosclerotic plaque in the proximal right common iliac artery with stenosis of the lumen, with large ulcerating plaque extending into the lumen. There is a large noncalcified and calcified atherosclerotic plaque at the distal right external iliac artery with mild narrowing of the lumen. Right femoral/popliteal arteries: There is complete occlusion of the right superficial femoral artery from its origin to its distal segment. The right profundus femoris artery patent but demonstrates multifocal plaque. There is reconstitution the right superficial femoral artery at its distal segment which supplies the popliteal artery. The right popliteal artery is almost completely occluded from its proximal segment. Right infrapopliteal arteries: The right posterior tibial artery is patent. Right peroneal artery is patent. The right anterior tibial artery is occluded proximally. There is reconstitution in the right dorsalis pedis artery at the ankle. Left iliac arteries: There is significant atherosclerotic plaque in the left common iliac artery. There is prominent focal stenosis at the origin the left internal iliac artery. Left external iliac arteries patent. Left femoral/popliteal arteries: The left superficial femoral artery demonstrates significant atherosclerotic plaque without occlusion. Multifocal regions of narrowing noted. The left popliteal artery is patent for most of its course, although there is occlusion at the trifurcation distally. Left infrapopliteal arteries: The left peroneal artery is occluded at its origin but demonstrates proximal reconstitution. There is complete occlusion of the left anterior tibial artery. The left dorsalis pedis artery demonstrates minimal contrast enhancement suggestive of at least partial occlusion. There is occlusion of the origin of the left posterior tibial artery, however reconstitution is noted proximally. Liver: Unremarkable liver. No mass identified. Gallbladder and bile ducts: Cholelithiasis noted without evidence of acute cholecystitis. Pancreas: No pancreatic lesion seen. Spleen: No splenomegaly. No ductal dilation. Adrenal glands: The adrenal glands are unremarkable. No defined mass. Kidneys and ureters: There is a 3.4 cm simple appearing cyst in the right kidney. No hydronephrosis. Stomach and bowel: No obstruction. No mucosal thickening. Appendix: No evidence of appendicitis. Urinary bladder: Unremarkable. No mass. Reproductive: Unremarkable as visualized. Intraperitoneal space: Unremarkable. No free air. No significant fluid collection. Lymph nodes: No enlarged lymph nodes. Bones/joints: No acute fracture. There is a bipartite appearance of the right patella. Lumbar spine degenerative changes noted. Soft tissues: No significant subcutaneous soft tissue abnormality. IMPRESSION: 1. Atherosclerotic plaque throughout the abdominal aorta without evidence of aortic aneurysm. Stenosis noted at the origin of the right renal artery. 2. Large ulcerating plaque in the right common iliac artery with narrowing and prominent stenosis at the origin of the left internal iliac artery. 3. 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 4. Multifocal occlusion and stenosis in the bilateral popliteal and infrapopliteal arteries are described. 5. No evidence of acute pathology in the abdomen and pelvis. Dictated and Authenticated by: Gauri Woody MD. Ordering:EDDIE Orozco MD
[2022-08-17 17:38] VITALS: BP 152/96; PULSE 77; RESP 16; TEMP 36; O2SAT 98
[2022-08-17 18:40] VITALS: BP 137/68; PULSE 95; RESP 22; TEMP 36.9; O2SAT 95
== END 2022-08-17 19:57 | disposition home or self-care (01) ==
PROVIDERS: Physician Assistant; Emergency Provider Physician Assistant; PCP Family Medicine
DX: E11.52 Type 2 diabetes mellitus with diabetic peripheral angiopathy with gangrene (principal); I96 Gangrene, not elsewhere classified; I10 Essential (primary) hypertension; Z79.4 Long term (current) use of insulin; Z79.84 Long term (current) use of oral hypoglycemic drugs; Z79.899 Other long term (current) drug therapy; Z79.82 Long term (current) use of aspirin
CPT/HCPCS: 36415; 75635; 80053; 99285; 85025; 85610; 99284; J3490

== ENCOUNTER 2023-01-29 19:13 | Outpatient (REF) | payer MEDICARE, SELFPAY ==
[2023-01-29 15:51] LABS: Abs Immature Grans 0.02 10^3/uL (0.0-0.06); Absolute Basophil Count 0.08 10^3/uL (0.0-0.2); Absolute Eosinophil Count 0.89 10^3/uL (0.0-0.7); Absolute Monocyte Count 0.63 10^3/uL (0.1-0.8); Absolute Neutrophil Count 3.85 10^3/uL (1.2-6.7); Basophils % 1.2; Eosinophils % 13.3; HCT 33.7 % (40.0-50.0); HGB 10.5 g/dL (13.5-17.5); Immature Grans % 0.3; MCH 27.6 pg (27.0-33.0); MCHC 31.2 % (32.0-36.0); MCV 89 fL (80-95); MPV 8.9 fL (8.0-11.0); Monocytes % 9.4; Neutrophils % 57.8; Platelet Count 343 10^3/uL (130-400); RDW 15.9 % (11.8-14.1); WBC 6.67 10^3/uL (4.4-10.8)
[2023-01-29 16:48] LABS: ALT 36 U/L (16-63); AST 23 U/L (15-37); Albumin 3.3 g/dL (3.4-5.0); Alkaline Phosphatase 158 U/L (46-116); Anion Gap 6.8 mmol/L (3-11); BUN 32 mg/dL (7-18); Bilirubin, Total 0.4 mg/dL (0.2-1.0); CO2 31.2 mmol/L (21.0-32.0); CREATININE 1.5 mg/dL (0.70-1.30); Calcium 9.2 mg/dL (8.5-10.1); Chloride 103 mmol/L (98-107); Estimated GFR 47.36 (mL/min/1.73m2); Glucose 119 mg/dL (74-106); Potassium 4.9 mmol/L (3.5-5.1); Sodium 141 mmol/L (136-145); Total Protein 7.5 g/dL (6.4-8.2); Vitamin B12 542 pg/mL (193-986)
[2023-01-29 18:45] LABS: Iron 75 ug/dL (65-175); Total Iron Binding Capacity 233 ug/dL (250-450); Transferrin Sat 32 % (20-55)
== END 2023-01-29 19:14 | disposition home or self-care (01) ==
LOC: NCHCN 19:13
PROVIDERS: PCP Family Medicine; Visit Provider Family Medicine
DX: D64.9 Anemia, unspecified (principal); L98.499 Non-pressure chronic ulcer of skin of other sites with unspecified severity; E11.9 Type 2 diabetes mellitus without complications; Z79.4 Long term (current) use of insulin; Z79.899 Other long term (current) drug therapy
CPT/HCPCS: 80053; 82607; 83540; 83550; 85025

== ENCOUNTER → 2023-04-15 01:15 | Outpatient (CLI) | payer MEDICARE, SELFPAY ==
--- NOTE | 2023-04-15 11:28 | DI.MRI_ITS ---
Exam(s) MR LOWER JOINT RT WO EXAM: MR LOWER JOINT RT WO CLINICAL HISTORY: SKIN ULCER RT KNEE WITH FAT EXPOSED,L97.812,? OSTEONECROSIS,NON HEALING ULC. TECHNIQUE: Multiplanar multisequence MRI was performed. COMPARISON: DX XR KNEE 1-2 VIEWS RIGHT (GENERIC) from 03/05/2023 FINDINGS: BONES: There is no fracture or contusion pattern. There is a bipartite patella. There is mild edema seen in the patellar fragment in the upper outer quadrant. There is corresponding hypointense signal seen on the T1 weighted images. Mild marrow edema is seen on the T2 weighted images in the inferior patella. There does not appear to be corresponding hypointense signal seen on the T1 weighted image s in the inferior patella. There is also mild marrow edema seen in the medial aspect of the lateral femoral condyle. Mild subchondral edema is seen at the articular surface of the medial femoral condy le. JOINTS: Articular cartilage is unremarkable. There is a small amount of fluid in the joint space. TENDONS: Extensor mechanism: Unremarkable. Medial retinaculum: Unremarkable. Lateral retinaculum: Unremarkable. Popliteus: Unremarkable. MUSCLES: Unremarkable. MENISCI: There is a tear of the posterior body and a portion of the posterior horn of the medial meni scus. The lateral meniscus is unremarkable. SOFT TISSUES: There is mild edema in the soft tissues anterior to the patella. No focal fluid collec tion is seen to suggest an abscess. LIGAMENTS: Anterior Cruciate: Unremarkable. Posterior Cruciate: Unremarkable. Medial Collateral:Unremarkable. Lateral Collateral: Unremarkable. OTHER: IMPRESSION: 1. Mild hyperintense signal seen in the inferior patella on the T2 weighted images without correspond ing hypointense signal on the T1 weighted image. Osteomyelitis is considered less likely. 2. Edema in the prepatellar soft tissues without focal fluid collections to suggest an abscess. 3. Tear of the body and posterior horn of the medial meniscus. 4. Bipartite patella. There is abnormal signal on the T1 and T2 weighted images in the bony fragment . This appears remote from the site of ulceration. Osteomyelitis cannot, though, be entirely exclud ed. DATA REPOSITORY:
== END ==
PROVIDERS: PCP Family Medicine; Visit Provider Physician Assistant
DX: M70.41 Prepatellar bursitis, right knee (principal); M23.221 Derangement of posterior horn of medial meniscus due to old tear or injury, right knee; Q74.1 Congenital malformation of knee
CPT/HCPCS: 73721

== ENCOUNTER 2023-05-21 20:32 | Outpatient (REF) | payer MEDICARE, SELFPAY ==
[2023-05-21 17:04] LABS: Bilirubin Negative (Negative); Blood Trace-intact (Negative); Clarity Clear (Clear); Glucose Negative (Negative); Ketones Negative (Negative); Leukocyte Esterase Negative (Negative); Nitrite Negative (Negative); Urobilinogen 0.2 mg/dL (Up to 0.2); pH 5.5 (5-8)
[2023-05-21 17:04] LABS: HGB 11.2 g/dL (13.5-17.5); MCH 29.7 pg (27.0-33.0); MCV 93 fL (80-95); MPV 9.7 fL (8.0-11.0); Platelet Count 261 10^3/uL (130-400); RBC 3.77 10^6/uL (4.36-5.78); RDW 14.5 % (11.8-14.1); RDW-SD 49.1 fL; WBC 7.41 10^3/uL (4.4-10.8)
[2023-05-21 17:23] LABS: Bacteria Negative HPF (Negative); Crystals Negative HPF (Negative); Epithelial Cells Few HPF (Negative); Mucus Trace (Negative); Other Cells Rare Transitional (Negative); WBC 0-2 HPF (0-5)
[2023-05-21 17:24] LABS: C & S Indicated? No; Casts 0-2 Hyaline LPF (Negative)
[2023-05-21 17:30] LABS: Iron 49 ug/dL (65-175); Total Iron Binding Capacity 231 ug/dL (250-450); Transferrin Sat 21 % (20-55)
[2023-05-21 17:42] LABS: Anion Gap 7.7 mmol/L (3-11); BUN 45 mg/dL (7-18); CO2 26.3 mmol/L (21.0-32.0); CREATININE 1.5 mg/dL (0.70-1.30); Calcium 8.9 mg/dL (8.5-10.1); Calculated LDL 46 mg/dL (<100); Chloride 105 mmol/L (98-107); Cholesterol 106 mg/dL (<200); Estimated GFR 47.36 (mL/min/1.73m2); Ferritin 120 ng/mL (26-388); Glucose 129 mg/dL (74-106); HDL Cholesterol 45 mg/dL (40-60); Potassium 4.5 mmol/L (3.5-5.1); Sodium 139 mmol/L (136-145); Triglyceride 78 mg/dL (<150)
[2023-05-22 18:39] LABS: PSA, Diagnostic 1.3 ng/mL (<=6.5)
== END 2023-05-21 20:33 | disposition home or self-care (01) ==
LOC: NCHCN 20:32
PROVIDERS: PCP Family Medicine; Visit Provider Family Medicine
DX: D64.9 Anemia, unspecified (principal); N28.9 Disorder of kidney and ureter, unspecified; R80.9 Proteinuria, unspecified; N40.2 Nodular prostate without lower urinary tract symptoms; R39.89 Other symptoms and signs involving the genitourinary system; E11.9 Type 2 diabetes mellitus without complications; Z79.4 Long term (current) use of insulin; I10 Essential (primary) hypertension
CPT/HCPCS: 80048; 80061; 85027; 81003; 81015; 82728; 83540; 83550; 84153

== ENCOUNTER → 2023-06-11 13:43 | Outpatient (BNVA) | payer MEDICARE, SELFPAY | PROVIDERS: PCP Family Medicine; Referring Provider Family Medicine; Visit Provider Nurse Practitioner Gerontology | DX: R39.89 Other symptoms and signs involving the genitourinary system (principal); R31.9 Hematuria, unspecified; N40.2 Nodular prostate without lower urinary tract symptoms | CPT/HCPCS: 51798; 81003; 99215 ==

== ENCOUNTER → 2023-06-21 00:25 | Outpatient (CLI) | payer MEDICARE, SELFPAY ==
--- NOTE | 2023-06-21 07:45 | DI.US_ITS ---
Exam(s) US RENAL EXAM: US RENAL CLINICAL HISTORY: RBC 3-5,hematuria, r31.9. TECHNIQUE: Abdullahi scale, color and spectral Doppler were used. COMPARISON: CT CT ABD AORTA CTA W RUNOFF from 08/17/2022 FINDINGS: Renal size in cm: Right: 9.5 left: 11.1 Echogenicity: Normal Hydronephrosis: No Cyst or mass: 3 cm simple cyst upper pole right kidney. Nephrolithiasis: No Bladder:Normal. Both ureteral jets were visualized. No stone or mass visible. Prevoid vol:171 cc Postvoid vol:62 cc Prostate volume 35 cc. IMPRESSION: Elevated postvoid residual. Enlarged prostate. No renal calculi or hydronephrosis. DATA REPOSITORY:
== END ==
PROVIDERS: PCP Family Medicine; Visit Provider Nurse Practitioner Gerontology
DX: N20.0 Calculus of kidney (principal); R31.9 Hematuria, unspecified
CPT/HCPCS: 76770

== ENCOUNTER → 2023-07-04 14:06 | Outpatient (BNVA) | payer MEDICARE, SELFPAY | PROVIDERS: PCP Family Medicine; Referring Provider Family Medicine; Visit Provider Nurse Practitioner Gerontology | DX: R31.29 Other microscopic hematuria (principal); N40.2 Nodular prostate without lower urinary tract symptoms; I10 Essential (primary) hypertension | CPT/HCPCS: 99215 ==

== ENCOUNTER → 2023-07-30 13:36 | Outpatient (BNVA) | payer MEDICARE, SELFPAY | PROVIDERS: PCP Family Medicine; Referring Provider Family Medicine; Visit Provider Nurse Practitioner Gerontology | DX: R31.9 Hematuria, unspecified (principal); N40.2 Nodular prostate without lower urinary tract symptoms | CPT/HCPCS: 99214 ==

== ENCOUNTER 2023-08-06 17:29 | Outpatient (REF) | payer MEDICARE, SELFPAY ==
[2023-08-06 17:37] LABS: Anion Gap 7.7 mmol/L (3-11); BUN 16 mg/dL (7-18); CO2 30.3 mmol/L (21.0-32.0); CREATININE 1.4 mg/dL (0.70-1.30); Calcium 8.7 mg/dL (8.5-10.1); Chloride 98 mmol/L (98-107); Estimated GFR 51.45 (mL/min/1.73m2); Glucose 176 mg/dL (74-106); Potassium 3.5 mmol/L (3.5-5.1); Sodium 136 mmol/L (136-145)
== END 2023-08-06 17:30 | disposition home or self-care (01) ==
LOC: NCHCN 17:29
PROVIDERS: PCP Family Medicine; Visit Provider Family Medicine
DX: E11.69 Type 2 diabetes mellitus with other specified complication (principal); E11.51 Type 2 diabetes mellitus with diabetic peripheral angiopathy without gangrene
CPT/HCPCS: 80048

== ENCOUNTER 2023-08-12 08:37 | Inpatient (IN) | payer MEDICARE, SELFPAY ==
[2023-08-12] VITALS (162 sets, daily range): BP systolic 61–164; BP diastolic 33–109; PULSE 66–117; RESP 0–30; TEMP 36.9–37.8; O2SAT 90–100
--- NOTE | 2023-08-12 08:15 | RT.EKG_ITS ---
APPROVED REPORT Exam: Resting ECG Reason for Exam: tachycardia Patient Location: E HR:106 bpm ECG Measurements Heart Rate 106 AXIS IN 155 P 0 QRSd 143 QRS -79 QT 391 T 105 QTc 515 Conclusion Sinus tachycardia...rate> 99 Atrial premature complexes...SV complexes w/ short R-R intvls Probable left atrial enlargement...P >50mS, <-0.10mV V1 Left bundle branch block...QRSd>120, broad/notched R
[2023-08-12 08:57] LABS: BE (Venous) 3 mmol/L (-2-3); HCO3 (Venous) 28 mmol/L (23-28); O2 Sat (Venous) 63 %; TCO2 (Venous) 26 mmol/L (24-29); pCO2 (Venous) 46 mmHg (41-51); pH (Venous) 7.39 (7.31-7.41); pO2 (Venous) 36 mmHg
[2023-08-12] MEDS: Lactated Ringers 1,000 ML 125 ML IV (08:57)
[2023-08-12 09:03] LABS: Abs Immature Grans 1.22 10^3/uL (0.0-0.06); HCT 31.1 % (40.0-50.0); HGB 10.7 g/dL (13.5-17.5); MCH 29.2 pg (27.0-33.0); MCHC 34.4 % (32.0-36.0); MCV 85 fL (80-95); MPV 9.3 fL (8.0-11.0); Platelet Count 449 10^3/uL (130-400); RBC 3.67 10^6/uL (4.36-5.78); RDW 14.3 % (11.8-14.1); RDW-SD 44.5 fL
[2023-08-12 09:05] LABS: ESR 74 mm/hr (0-20)
[2023-08-12 09:06] LABS: WBC 28.61 10^3/uL (4.4-10.8)
[2023-08-12 09:20] LABS: Absolute Lymphocyte Count 0.29 10^3/uL (1.2-3.4); Absolute Monocyte Count 1.43 10^3/uL (0.1-0.8); Absolute Neutrophil Count 26.89 10^3/uL (1.2-6.7); Bands % 6
[2023-08-12 09:21] LABS: Diff Comment Manual Differential; RBC Morphology Normal
[2023-08-12 09:32] LABS: ALT 60 U/L (16-63); Albumin 1.8 g/dL (3.4-5.0); Alkaline Phosphatase 91 U/L (46-116); Anion Gap 12.8 mmol/L (3-11); BUN 45 mg/dL (7-18); Bilirubin, Direct 0.3 mg/dL (0.0-0.2); Bilirubin, Total 0.7 mg/dL (0.2-1.0); CO2 28.2 mmol/L (21.0-32.0); Calcium 8.1 mg/dL (8.5-10.1); Chloride 94 mmol/L (98-107); Estimated GFR 15.05 (mL/min/1.73m2); Glucose 150 mg/dL (74-106); Lipase 10 U/L (16-77); Magnesium 1.4 mg/dL (1.8-2.4); NT-proBNP 14952 pg/mL (<300); Sodium 135 mmol/L (136-145); Total Protein 7.1 g/dL (6.4-8.2)
[2023-08-12 09:39] LABS: Lactate 1.3 mmol/L (0.6-1.4)
--- NOTE | 2023-08-12 09:40 | ED.GENADUL_ITS ---
Discharge Plan Disposition Patient Disposition: Admit to [facility] Discharge Details Clinical Impression: Rhabdomyolysis, Infectious diarrhea Primary Care Provider: Asif Burr ED Provider: Jaquan Reynoso Home Meds and New Rx's Prescriptions: No Action tamsulosin [Flomax] 0.4 mg capsule 0.8 mg PO DAILY lisinopril 10 mg tablet 10 mg PO DAILY trazodone 100 mg tablet 100 mg PO DAILY insulin glargine [Lantus Solostar U-100 Insulin] 100 UNIT/1 ML insulin pen 40 units SQ HS Qty: 1 Hold Instructions: Pt Stopped/Never Started (DME) blood-glucose meter 1 EACH misc 1 ea Miscellaneous ONCE Qty: 1 Rx Instructions: ONE TOUCH ULTRA MINI DIAGNOSIS CODE 250.02 (DME) Blood Glucose Test 1 EACH strip 1 ea Miscellaneous BID Qty: 200 Rx Instructions: FOR ONE TOUCH ULTRA MINI METER. Pt uses insulin.DIAGNOSIS CODE 250.02 (DME) lancets 1 EACH misc 1 ea Miscellaneous BID Qty: 200 Rx Instructions: FOR ONE TOUCH ULTRA MINI METER. USES INSULIN. DIAGNOSIS CODE 250.02 Levemir FlexTouch U100 Insulin 100 unit/mL (3 mL) insulin pen 100 unit SC DAILY Hold Instructions: Pt Stopped/Never Started (DME) BD Insulin Syringe (half unit) 0.3 mL 31 gauge x 5/16 syringe See Rx Instructions .ROUTE .MEDSUPPLY Qty: 100 Rx Instructions: As directed insulin lispro [Humalog KwikPen Insulin] 100 unit/mL insulin pen 15 unit SC TID Hold Instructions: Pt Stopped/Never Started Rx Instructions: 2-3 times daily 15 units small meals 20 units large meals atorvastatin 40 mg tablet 40 mg PO DAILY metoprolol succinate 25 mg tablet extended release 24 hr 12.5 mg PO DAILY citalopram 10 mg tablet 10 mg PO DAILY Januvia 100 mg tablet 100 mg PO DAILY torsemide 10 mg tablet 20 mg PO DAILY insulin aspart U-100 [Novolog FlexPen U-100 Insulin] 100 unit/mL (3 mL) insulin pen 20 unit SUBCUT DAILY Hold Instructions: Pt Stopped/Never Started Patient Comments: INJECT 20 UNITS SUBCUTANEOUSLY ONCE DAILY BEFORE THE BIGGEST MEAL OF THE DAY aspirin [Adult Aspirin Regimen] 81 mg tablet,delayed release (DR/EC) 81 mg PO DAILY Qty: 30 0RF Medical Decision Making This dictation utilizes [id number] dictation software and may contain unedited grammatical errors. 78 y/o M presents to ED today with a chief complaint of intractable diarrhea for the past 4 days, pain all over- but unreliable historian, stated back pain with EMS, denies with provider, denies abdominal pain, appears very sick. Onset and characteristics include 4 days onset, not getting out of bed, states he does walk at baseline without a walker, denies home O2 use. Patients' medical history: COPD, metabolic syndrome, congestive heart failure, anemia, diabetic neuropathy, renal insufficiency, hematuria, hypertension, has scar of open heart surgery but cannot reliably tell me what he had done, states they put a scope down there. Family and social history: lives at home with his , normally fairly independent. Pertinent exam findings / vital signs include regular rate, mild tachycardia, appears toxic, benign abdomen without pulsatile masses/organomegaly. Differential / pathologies of concern include infectious diarrhea, sepsis, acute exacerbation of heart failure, dehydration, rhabdomyolysis, ACS, aortic aneurysm/dissection, PNA, acute renal failure, diverticulitis, C. difficile, Myocarditis. Diagnostic studies of: -CBC, CMP, Lactate, Lipase, Trop I, BNP, Procalcitonin, VBG, Mg++, CRP/ESR, EKG, Blood Cx's, UA, CT Chest/ABD/Pelvis wo Contrast. -CBC shows leukocytosis of 28.6 neutrophil predominant, mild anemia HgB 10.7, has history with similar values -Lactate 1.3, WNL -CRP >25, ESR 74 -VBG shows no acute abnormalities -CMP highly abnormal with K+ of 2.8, Mg++ is 1.4, BUN 45, SCr of 3.9 with a GFR of 15 -CK shows 7648- likely rhabdomyolysis -Trop is 1777, question ACS vs dissection vs result of renal injury - performing CT Chest/ABD/Pelvis wo contrast due to GFR - repeat troponin trending down 1600 -BNP 19312, question renal failure vs eval for pulmonary edema on imaging- fluids running very slowly out of caution of pulmonary edema -UA shows blood, trace leuk esterase, no nitrites, 3-5 WBCs -EKG shows LBBB without sgarbossa criteria, no ST changes, prior only available from 2012 in our system -EKG obtained from [facility] [place] which shows LBBB Interventions of: -initial fluid resuscitation of LR @ 125/mL/hr, switched to NS for administration of Zosyn 2.25gm renal dosing for empiric ABD source of infection. -20mEq's of potassium IV x2 -2gm magnesium -IV 1g Tylenol -324 mg ASA chewable -7mcg/hr NorEpi w/ 500mL fluid bolus ED Course/Assessment/Plan: Somewhat unreliable 78-year-old male presents with 4 days of a diarrheal illness, he appears toxic and quite sick, his labs are highly deranged and I think it is possible that he is so dehydrated that he is got into a significant rhabdomyolysis but with his cardiac history his troponin elevation 1776 and BNP of 15,000 is concerning. He is in acute renal failure and unable to receive contrast, this patient requires fluid resuscitation to address his dehydration and rhabdomyolysis but this must be done carefully due to the potential for volume overload with a history of CHF and COPD. He has been mildly hypoxic throughout the visit on 2L O2 by NC, this was titrated up and the patient may have a need for BiPAP if he fails to improve. Patient will need in-patient stay for definitive care, ICU bed here vs transfer. 1200: Patient noted to be hypotensive, both myself and Dr. Schultz bedside, patient moved to CC room- no breakdown on posterior, bloody stool noted, repeating CBC, BMP, Trop I, EKG. Starting NorEpi at 5mcg/min, patient had received about 700mL of crystalloid at this time, opening fluids to wide open ~500mL bolus. Patient has 2 18 ga. IV's, getting 14 & 16ga as well. Spent 30 minutes at bedside in critical care time. 1300: Patient has been titrated up to 7mcg/hr on NorEpi, responding well with BP 121/55, patient had a sip of water, states he is feeling a little better. Consulted with Hospitalist Dr. Corley for admission to [facility] ICU which was accepted, has capacity at 1500. Case discussed with EM Attending Dr. Apollo Schultz. Findings not consistent with STEMI, ACS- trop elevation likely due to prolonged extreme dehydration and rhabdo, no signs of pulmonary edema with his elevated BNP on chest CT, patient does have a slight O2 requirement in the setting of COPD.. Disposition of Rhabdomyolysis, Infectious Diarrhea. Patient verbalized understanding of the plan and return to ED criteria and engaged in shared decision making. Medical Records Medical records reviewed: Yes I reviewed the patient's medical records. Medical records narrative: Echocardiogram from September 2022 at [facility] [place] shows EF of 35%, wall motion abnormalities in the LAD territory, dense apical, septal, and anterior akinesis. Aortic root diameter 4.0cm CATH study Sep 2022 shows 3 vessel disease LAD, LCX, RCA - diffuse occlusive pathology on Aorta/Run-off studies. Imaging Data Radiologic Study: Attestation: I personally reviewed and interpreted this imaging study as follows: Imaging: CT Scan Radiologist's impression: EXAM: CT CHEST/ABD/PEL WO CLINICAL HISTORY: diarrhea, elevated trop, mild hypoxia TECHNIQUE: Imaging Protocol: Axial computed tomography images with coronal and sagittal reformatted images were created and reviewed COMPARISON: CT CT NECK W from 03/23/[address] ABD AORTA CTA W RUNOFF from 08/17/2022 FINDINGS: CHEST: Tracheobronchial tree: Patent where visualized. Pulmonary parenchyma: Mild paraseptal emphysematous changes are present. There is a moderate size right pleural effusion with subjacent infiltrate which may represent atelectasis or pneumonia. No architectural distortion. Mediastinum and Camille: There again seen lymph nodes in the mediastinum which appears stable. The esophagus is unremarkable. Thyroid gland: Unremarkable. Pleura: There may be a tiny left pleural effusion. There is no pneumothorax. Heart: Cardiomegaly. Status post CABG. No pericardial effusion. Aorta: Thoracic aorta non-dilated. Atherosclerosis. Lymph nodes: Within normal limits. Bones:Within normal limits for the patient's age. Soft tissues: Unremarkable. ABDOMEN: Liver: Normal density. No measurable mass. Gallbladder and Biliary Tract: Cholelithiasis. No biliary ductal dilatation. Pancreas: There are calcifications seen in the pancreas which may reflect chronic pancreatitis. There is pancreatic atrophy. Spleen: Calcified granuloma are seen in the spleen. Adrenals: No masses seen. Kidneys: Normal size, contour and axis. There is a 3 mm of stone in the left kidney. No obstructive uropathy. There is a again seen a cyst in the right kidney. No follow-up is recommended. Abdominal Aorta: Abdominal portion non-dilated. Atherosclerosis. There is a right iliac stent. Bowel: There is thickening of the wall of the rectum. There is diverticulosis in the colon but no evidence of acute diverticulitis. No evidence of appendicitis. There is no evidence of bowel wall thickening or obstruction. The stomach is decompressed limiting evaluation. Peritoneal Cavity: No ascites, collection or mesenteric inflammatory response. No free air. Lymph Nodes: Within normal limits. Bones: Within normal limits for the patient's age. There is L5 spondylolysis and grade 1 spondylolisthesis of L5 on S1. Sternal wires are in place. Soft Tissues: The left gluteus evens muscle is thickened and there does appear to be some loss of the normal muscular striations. This is incompletely imaged on this examination. This was not present on prior examinations. PELVIS: Bladder: There is mild diffuse thickening of the wall of the urinary bladder. Reproductive Organs: Prostate gland is mildly enlarged. Lymph Nodes: Within normal limits. Bones: Within normal limits for the patient's age. IMPRESSION: 1. Moderate size right pleural effusion and right basilar infiltrate which may represent atelectasis or pneumonia. Possible tiny left pleural effusion. 2. Question of thickening of the wall of the rectum. Inflammatory infectious process. Neoplasm cannot be excluded. Please correlate with physical exam. 3. Colonic diverticulosis without evidence of acute diverticulitis. 4. Enlarged prostate gland. Mild diffuse thickening of the wall of the urinary bladder. This may be due to chronic bladder outlet obstruction, cystitis or possible neoplasm. Follow-up as clinically appropriate. 5. Enlarged left gluteus evens muscle. This is incompletely imaged on the current examination. Please correlate with physical exam. The finding is nonspecific. Intramuscular mass, infection or trauma should be considered. 6. Cholelithiasis without evidence of biliary ductal dilatation. Lab Data Lab results reviewed: Yes I reviewed the patient's lab results. Labs: 08/12/23 09:21 Blood Blood Culture - Pending 08/12/23 09:15 Blood Blood Culture - Pending Laboratory Tests Range/Units 08/12/23 08/12/23 08/12/23 08:50 09:28 09:35 WBC (4.4-10.8) 10^3/uL 28.61 H* RBC (4.36-5.78) 10^6/uL 3.67 L Hgb (13.5-17.5) g/dL 10.7 L Hct (40.0-50.0) % 31.1 L MCV (80-95) fL 85 MCH (27.0-33.0) pg 29.2 MCHC (32.0-36.0) % 34.4 RDW (11.8-14.1) % 14.3 H Plt Count (130-400) 10^3/uL 449 H MPV (8.0-11.0) fL 9.3 Immature Gran % See Differential Neutrophils % 88.0 Band Neutrophils % 6 Lymphocytes % 1.0 Monocytes % 5.0 Eosinophils % 0.0 Basophils % 0.0 Nucleated RBC % (0.0-0.3) % 0.0 Absolute Neutrophils (1.2-6.7) 10^3/uL 26.89 H Absolute Lymphocytes (1.2-3.4) 10^3/uL 0.29 L Absolute Monocytes (0.1-0.8) 10^3/uL 1.43 H Absolute Eosinophils (0.0-0.7) 10^3/uL 0.00 Absolute Basophils (0.0-0.2) 10^3/uL 0.00 RBC Morphology Normal ESR (0-20) mm/hr 74 H VBG pH (7.31-7.41) 7.39 VBG pCO2 (41-51) mmHg 46 VBG pO2 mmHg 36 VBG HCO3 (23-28) mmol/L 28 VBG Total CO2 (24-29) mmol/L 26 VBG O2 Saturation % 63 VBG Base Excess (-2-3) mmol/L 3 VBG Lactate (0.6-1.4) mmol/L 1.3 Sodium (136-145) mmol/L 135 L Potassium (3.5-5.1) mmol/L 2.8 L* Chloride (98-107) mmol/L 94 L Carbon Dioxide (21.0-32.0) mmol/L 28.2 Anion Gap (3-11) mmol/L 12.8 H BUN (7-18) mg/dL 45 H Creatinine (0.70-1.30) mg/dL 3.9 H* Est GFR (CKD-EPI 2020) (mL/min/1.73m2) 15.05 Glucose (74-106) mg/dL 150 H Calcium (8.5-10.1) mg/dL 8.1 L Magnesium (1.8-2.4) mg/dL 1.4 L Total Bilirubin (0.2-1.0) mg/dL 0.7 Conjugated Bilirubin (0.0-0.2) mg/dL 0.3 H AST (15-37) U/L 227 H ALT (16-63) U/L 60 Alkaline Phosphatase (46-116) U/L 91 Creatine Kinase (39-308) U/L 7648 H Troponin I (<or=60) ng/L 1777 H* C-Reactive Protein (0.0-0.3) mg/dL > 25.00 H NT-Pro-B Natriuret Pep (<300) pg/mL 43254 H Total Protein (6.4-8.2) g/dL 7.1 Albumin (3.4-5.0) g/dL 1.8 L Lipase (16-77) U/L 10 L Procalcitonin ng/mL 20.8 Urine Color (Yellow) Yellow Urine Clarity (Clear) Sl Cloudy Urine pH (5-8) 6.0 Ur Specific Williamson (1.005-1.025) 1.025 Urine Protein (Negative) mg/dL >=300 H Urine Ketones (Negative) mg/dL Negative Urine Blood (Negative) Large H Urine Nitrite (Negative) Negative Urine Bilirubin (Negative) Moderate H Urine Urobilinogen (Up to 0.2) mg/dL 0.2 Ur Leukocyte Esterase (Negative) Trace H Urine RBC (0-2) HPF 20-50 H Urine WBC (0-5) HPF 3-5 Ur Epithelial Cells (Negative) HPF Many Urine Crystals (Negative) HPF Negative Urine Bacteria (Negative) HPF Moderate Urine Casts (Negative) LPF Negative Urine Mucus (Negative) Trace Ur Culture Indicated? No/Sq. Contamination Urine Glucose (Negative) mg/dL Negative Range/Units 08/12/23 08/12/23 11:50 12:05 WBC (4.4-10.8) 10^3/uL 26.40 H* RBC (4.36-5.78) 10^6/uL 3.30 L Hgb (13.5-17.5) g/dL 9.4 L Hct (40.0-50.0) % 27.8 L MCV (80-95) fL 84 MCH (27.0-33.0) pg 28.5 MCHC (32.0-36.0) % 33.8 RDW (11.8-14.1) % 14.6 H Plt Count (130-400) 10^3/uL 322 MPV (8.0-11.0) fL 9.0 Immature Gran % 1.7 Neutrophils % 91.2 Band Neutrophils % Lymphocytes % 1.1 Monocytes % 5.7 Eosinophils % 0.0 Basophils % 0.3 Nucleated RBC % (0.0-0.3) % 0.0 Absolute Neutrophils (1.2-6.7) 10^3/uL 24.08 H Absolute Lymphocytes (1.2-3.4) 10^3/uL 0.29 L Absolute Monocytes (0.1-0.8) 10^3/uL 1.50 H Absolute Eosinophils (0.0-0.7) 10^3/uL 0.00 Absolute Basophils (0.0-0.2) 10^3/uL 0.08 RBC Morphology ESR (0-20) mm/hr VBG pH (7.31-7.41) VBG pCO2 (41-51) mmHg VBG pO2 mmHg VBG HCO3 (23-28) mmol/L VBG Total CO2 (24-29) mmol/L VBG O2 Saturation % VBG Base Excess (-2-3) mmol/L VBG Lactate (0.6-1.4) mmol/L Sodium (136-145) mmol/L 133 L Potassium (3.5-5.1) mmol/L 2.8 L* Chloride (98-107) mmol/L 95 L Carbon Dioxide (21.0-32.0) mmol/L 26.6 Anion Gap (3-11) mmol/L 11.4 H BUN (7-18) mg/dL 46 H Creatinine (0.70-1.30) mg/dL 3.8 H* Est GFR (CKD-EPI 2020) (mL/min/1.73m2) 15.52 Glucose (74-106) mg/dL 163 H Calcium (8.5-10.1) mg/dL 7.8 L Magnesium (1.8-2.4) mg/dL Total Bilirubin (0.2-1.0) mg/dL Conjugated Bilirubin (0.0-0.2) mg/dL AST (15-37) U/L ALT (16-63) U/L Alkaline Phosphatase (46-116) U/L Creatine Kinase (39-308) U/L Troponin I (<or=60) ng/L 1636 H* C-Reactive Protein (0.0-0.3) mg/dL NT-Pro-B Natriuret Pep (<300) pg/mL Total Protein (6.4-8.2) g/dL Albumin (3.4-5.0) g/dL Lipase (16-77) U/L Procalcitonin ng/mL Urine Color (Yellow) Urine Clarity (Clear) Urine pH (5-8) Ur Specific Williamson (1.005-1.025) Urine Protein (Negative) mg/dL Urine Ketones (Negative) mg/dL Urine Blood (Negative) Urine Nitrite (Negative) Urine Bilirubin (Negative) Urine Urobilinogen (Up to 0.2) mg/dL Ur Leukocyte Esterase (Negative) Urine RBC (0-2) HPF Urine WBC (0-5) HPF Ur Epithelial Cells (Negative) HPF Urine Crystals (Negative) HPF Urine Bacteria (Negative) HPF Urine Casts (Negative) LPF Urine Mucus (Negative) Ur Culture Indicated? Urine Glucose (Negative) mg/dL HPI General Date/Time Provider Initiated Documentation: 08/12/23 08:44 . HPI Narrative: 78 year-old male presents to ED today by EMS with a chief complaint of diarrhea for 4 days, whole body hurts, but then denies abdominal pain, denies chest pain - poor historian. Endorsed mid-back pain with EMS but denies with provider. Quality described as just hurts all over, having intractable diarrhea, per EMS mild tachycardia, was placed on 2L O2 by NC, no radiation to fever, though the patient appears mildly diaphoretic, unreliable historian. Severity is described as 10/10. Palliating factors include nothing specific attempted. Provoking factors include nothing specific. Events leading up to the incident/Associated Symptoms: Patient lives at home with his , states he hasn't taken any of his home medications today. Patient not anticoagulated. Related Data Home Medications Medication Instructions Recorded Confirmed blood sugar diagnostic (Blood #200 strips 09/10/14 07/09/22 Glucose Test strips) blood-glucose meter #1 ea 09/10/14 07/09/22 insulin glargine 100 unit/mL (3 40 units SQ HS #1 pen 09/10/14 08/12/23 mL) subcutaneous pen (Lantus Solostar U-100 Insulin) lancets 28 gauge #200 ea 09/10/14 07/09/22 insulin aspart U-100 100 unit/mL 20 unit subcut DAILY 11/23/19 08/12/23 (3 mL) subcutaneous pen (Novolog FlexPen U-100 Insulin aspart) atorvastatin 40 mg tablet 40 mg PO DAILY 04/20/20 08/12/23 insulin detemir U-100 100 unit/mL 100 unit subcut DAILY 04/20/20 08/12/23 (3 mL) subcutaneous pen (Levemir FlexTouch U-100 Insulin) insulin lispro 100 unit/mL 15 unit subcut TID 04/20/20 08/12/23 subcutaneous pen (Humalog KwikPen (U-100) Insulin) insulin syr/ndl U100 half yovani 0.3 #100 ea 04/20/20 07/09/22 mL 31 gauge x 5/16 (BD Insulin Syringe Ultra-Fine (half unit)) aspirin 81 mg tablet,delayed 81 mg PO DAILY #30 tabs 08/17/22 08/12/23 release (Adult Aspirin Regimen) citalopram 10 mg tablet 10 mg PO DAILY 06/03/23 08/12/23 metoprolol succinate 25 mg 12.5 mg PO DAILY 06/03/23 08/12/23 tablet,extended release 24 hr sitagliptin phosphate 100 mg 100 mg PO DAILY 06/03/23 08/12/23 tablet (Januvia) tamsulosin 0.4 mg capsule (Flomax) 0.8 mg PO DAILY 07/04/23 08/12/23 lisinopril 10 mg tablet 10 mg PO DAILY 07/30/23 08/12/23 torsemide 10 mg tablet 20 mg PO DAILY 07/30/23 08/12/23 trazodone 100 mg tablet 100 mg PO DAILY 07/30/23 08/12/23 Previous Rx's Medication Instructions Recorded aspirin 81 mg tablet,delayed 81 mg PO DAILY #30 tabs 08/17/22 release (Adult Aspirin Regimen) Allergies Allergy/AdvReac Type Severity Reaction Status Date / Time No Known Drug Allergies Allergy Unknown Unverified 08/12/23 09:00 General Stated Complaint: Nausea/Vomit/Diar CRISTIN: 3 Review of Systems All systems reviewed & are unremarkable except as noted in HPI and below PFSH All Active Problems (Updated 08/12/23 @ 13:55 by Pb Corley MD) NSTEMI (non-ST elevated myocardial infarction) (Acute) Aspiration pneumonia (Acute) Pleural effusion (Acute) Acute respiratory failure with hypoxia (Acute) Acute renal failure (Acute) Septic shock (Acute) Infectious diarrhea (Acute) Rhabdomyolysis (Acute) Parotid mass (Acute) Medical History Intention tremor COPD (chronic obstructive pulmonary disease) Dyslipidemia Metabolic syndrome Warthin's tumor CHF (congestive heart failure) Tobacco use Anemia Diabetic neuropathy Renal insufficiency Depression Gangrene Nodular prostate Hematuria Lower urinary tract symptoms (LUTS) Hypercholesteremia Hypertension Diabetes Surgical History Rotator Cuff Repair LEFT LASER SURGERY LEFT EYE KNEE REPAIR chronic pain and collagenous disruption. Colonoscopy - MAC (~2001) polyps and diverticulosis Colonoscopy - IV Sedation DR.C Sobia GUILLERMO;3 POLYPS Appendectomy AGE 15 Social History Smoking/Tobacco Use Status: Current every day Tobacco Type: pipe Smoking risk assessment performed?: Yes Alcohol Intake: never Drug use: Never Substance use type: does not use Housing: house Do you feel safe at home: Yes Do you feel safe in your relationship?: Yes Exam Narrative Exam Narrative: GENERAL APPEARANCE: Ill-appearing, toxic, awake and alert, atraumatic, no acute distress. SKIN: Warm, pale, diaphoretic, intact, without rashes/lesions/ulcerations. HEAD: Normocephalic, atraumatic, normal hair distribution for gender/age. EYES: Pupils PERRLA, EOMs intact without nystagmus, normal conjunctiva, no exudates on lids/lashes. ENT: Nares patent, no circumoral cyanosis, no facial swelling, dry mucous membranes NECK: Supple, trachea midline, painless cervical ROM. LUNGS/CHEST: Lungs CTA bilaterally- no overt rales in bases, no rhonchi or w heezing, labored respirations, normal A/P diameter, symmetrical expansion, no chest wall deformity HEART (CV/PV): Regular rate and rhythm without murmur, no peripheral edema, no JVD. ABDOMEN: Soft, non-distended, no guarding, denies tenderness with palpation, no pulsatile masses or organomegaly of note. MSK: Normal ROM, no swelling/deformity to bilateral UEs or LEs, moving all extremities with weakness diffusely strength 4/5 without focal deficit, no cyanosis, spine midline without tenderness, normal curvature. NEURO: Mental Status AAOx4 - alert to person, place, time, events No facial droop, no forehead involvement. Motor: No focal weakness - strength 4/5 in bilateral UEs and LEs, proximal and distal, symmetric. Sensory: sensation intact to light touch globally. Gait NT. PSYCH: euthymic, cooperative, pleasant, appropriate speech Course 08/12/23 08:19 ED EKG Stat EKG Nursing/RT Intervention .STAT 08/12/23 08:45 C Diff PCR [SERO] Stat Lactated Ringers 1,000 ml IV INFUSION Lactoferrin Detection Stat Fecal Bacterial Pathogens PCR [SEND] Stat Giardia & Cryptosporidium Ag [SEND] Stat Ova & Parasite [SEND] Stat 08/12/23 08:50 BNP [NT-proBNP] Stat CK [Creatine Kinase] Stat CRP [C-Reactive Protein] Stat Comprehensive Metabolic Panel Stat Lipase Stat Liver Panel Stat Magnesium Stat Procalcitonin Stat Troponin [Cardiac Troponin I] Stat Complete Blood Count w/Diff [HEMO] Stat ESR [HEMO] Stat Venous Blood Gas [ABG] Stat 08/12/23 09:21 Blood Culture ( Age => 10 Yrs) Stat 08/12/23 09:28 Microscopic Findings [URIN] Stat Urinalysis [URIN] Stat 08/12/23 09:35 Lactate Stat 08/12/23 09:54 Magnesium Sulfate 2 gm in 50 ml IVPB NOW 08/12/23 09:57 Piperacillin/Tazo [Zosyn Injection] 2.25 gm Normal Saline [Saline Mini-Bag Plus 50ml] 50 ml IVPB NOW 08/12/23 10:00 Potassium Chloride 20 meq in 100 ml IVPB Q2H 08/12/23 10:04 Acetaminophen [Ofirmev] 1,000 mg in 100 ml IVPB ONCE Aspirin 324 mg CH NOW ONE 08/12/23 10:15 Normal Saline [Saline 1000ml Bag] 1,000 ml IV INFUSION 08/12/23 10:25 CT Chest ABD Pelvis WO Contrast [CT chest/abd/pel wo] [CT] Stat 08/12/23 11:50 Cardiac Troponin I Timed 08/12/23 12:00 Norepinephrine in D5W 8 mg in 250 ml IV INFUSION 08/12/23 12:02 ED EKG Stat 08/12/23 12:03 EKG Nursing/RT Intervention .STAT 08/12/23 12:05 Basic Metabolic Panel Stat Complete Blood Count w/Diff [HEMO] Stat 08/12/23 12:45 Type and Screen Stat Vital Signs Vital signs: Vital Signs Temperature 36.9 C 08/12/23 08:19 Pulse 96 H 08/12/23 08:19 Respiratory Rate 20 08/12/23 08:19 Blood Pressure 113/75 08/12/23 08:19 Pulse Oximetry 93 08/12/23 08:19 Temperature 36.9 C 08/12/23 08:19 Temperature Source Temporal Artery Scan 08/12/23 08:19 Pulse 102 H 08/12/23 09:00 Pulse 105 H 08/12/23 09:01 Respiratory Rate 20 08/12/23 09:01 Respiratory Effort Normal 08/12/23 08:43 Blood Pressure 104/60 08/12/23 09:00 Blood Pressure Mean 72 08/12/23 09:00 Blood Pressure Position Supine 08/12/23 08:19 Pulse Oximetry 93 08/12/23 09:20 Lab/Test Results Lab/Test Results: 08/12/23 09:21 Blood Blood Culture - Pending 08/12/23 09:15 Blood Blood Culture - Pending Laboratory Tests Range/Units 08/12/23 08:50 WBC (4.4-10.8) 10^3/uL 28.61 H* RBC (4.36-5.78) 10^6/uL 3.67 L Hgb (13.5-17.5) g/dL 10.7 L Hct (40.0-50.0) % 31.1 L MCV (80-95) fL 85 MCH (27.0-33.0) pg 29.2 MCHC (32.0-36.0) % 34.4 RDW (11.8-14.1) % 14.3 H Plt Count (130-400) 10^3/uL 449 H MPV (8.0-11.0) fL 9.3 Immature Gran % See Differential Neutrophils % 88.0 Band Neutrophils % 6 Lymphocytes % 1.0 Monocytes % 5.0 Eosinophils % 0.0 Basophils % 0.0 Nucleated RBC % (0.0-0.3) % 0.0 Absolute Neutrophils (1.2-6.7) 10^3/uL 26.89 H Absolute Lymphocytes (1.2-3.4) 10^3/uL 0.29 L Absolute Monocytes (0.1-0.8) 10^3/uL 1.43 H Absolute Eosinophils (0.0-0.7) 10^3/uL 0.00 Absolute Basophils (0.0-0.2) 10^3/uL 0.00 RBC Morphology Normal VBG pH (7.31-7.41) 7.39 VBG pCO2 (41-51) mmHg 46 VBG pO2 mmHg 36 VBG HCO3 (23-28) mmol/L 28 VBG Total CO2 (24-29) mmol/L 26 VBG O2 Saturation % 63 VBG Base Excess (-2-3) mmol/L 3
[2023-08-12 09:48] LABS: Procalcitonin 20.8 ng/mL
[2023-08-12 09:50] LABS: Bilirubin Moderate (Negative); Blood Large (Negative); Clarity Sl Cloudy (Clear); Glucose Negative (Negative); Ketones Negative (Negative); Leukocyte Esterase Trace (Negative); Nitrite Negative (Negative); Specific Gravity 1.025 (1.005-1.025); Urobilinogen 0.2 mg/dL (Up to 0.2)
[2023-08-12 09:51] LABS: CREATININE 3.9 mg/dL (0.70-1.30); Potassium 2.8 mmol/L (3.5-5.1)
[2023-08-12 09:52] LABS: AST 227 U/L (15-37); Troponin I 1777 ng/L (<or=60)
[2023-08-12 09:55] LABS: C-Reactive Protein > 25.00 mg/dL (0.0-0.3)
[2023-08-12 09:58] LABS: Bacteria Moderate HPF (Negative); C & S Indicated? No/Sq. Contamination; Casts Negative LPF (Negative); Crystals Negative HPF (Negative); Epithelial Cells Many HPF (Negative); Mucus Trace (Negative); RBC 20-50 HPF (0-2)
[2023-08-12 09:58] LABS: Creatine Kinase 7648 U/L (39-308)
[2023-08-12] MEDS: ACETAMINOPHEN 1,000 MG/100 ML BTL 400 MG IVPB (10:23)
[2023-08-12] MEDS: Aspirin 81 MG CHEW 324 MG CH (10:24)
[2023-08-12] MEDS: PIPERACILLIN/TAZO 2.25 GM in Normal Saline 50 ML IVPB ×2 (10:25→17:28)
[2023-08-12] MEDS: Normal Saline 1,000 ML 125 ML IV ×2 (10:25→21:27)
--- NOTE | 2023-08-12 10:25 | DI.CT_ITS ---
Exam(s) CT CHEST/ABD/PEL WO EXAM: CT CHEST/ABD/PEL WO CLINICAL HISTORY: diarrhea, elevated trop, mild hypoxia TECHNIQUE: Imaging Protocol: Axial computed tomography images with coronal and sagittal reformatted images were created and reviewed COMPARISON: CT CT NECK W from 03/23/[address] ABD AORTA CTA W RUNOFF from 08/17/2022 FINDINGS: CHEST: Tracheobronchial tree: Patent where visualized. Pulmonary parenchyma: Mild paraseptal emphysematous changes are present. There is a moderate size ri ght pleural effusion with subjacent infiltrate which may represent atelectasis or pneumonia. No arch itectural distortion. Mediastinum and Camille: There again seen lymph nodes in the mediastinum which appears stable. The esop hagus is unremarkable. Thyroid gland: Unremarkable. Pleura: There may be a tiny left pleural effusion. There is no pneumothorax. Heart: Cardiomegaly. Status post CABG. No pericardial effusion. Aorta: Thoracic aorta non-dilated. Atherosclerosis. Lymph nodes: Within normal limits. Bones:Within normal limits for the patient's age. Soft tissues: Unremarkable. ABDOMEN: Liver: Normal density. No measurable mass. Gallbladder and Biliary Tract: Cholelithiasis. No biliary ductal dilatation. Pancreas: There are calcifications seen in the pancreas which may reflect chronic pancreatitis. Ther e is pancreatic atrophy. Spleen: Calcified granuloma are seen in the spleen. Adrenals: No masses seen. Kidneys: Normal size, contour and axis. There is a 3 mm of stone in the left kidney. No obstructive uropathy. There is a again seen a cyst in the right kidney. No follow-up is recommended. Abdominal Aorta: Abdominal portion non-dilated. Atherosclerosis. There is a right iliac stent. Bowel: There is thickening of the wall of the rectum. There is diverticulosis in the colon but no ev idence of acute diverticulitis. No evidence of appendicitis. There is no evidence of bowel wall thi ckening or obstruction. The stomach is decompressed limiting evaluation. Peritoneal Cavity: No ascites, collection or mesenteric inflammatory response. No free air. Lymph Nodes: Within normal limits. Bones: Within normal limits for the patient's age. 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 Sternal wires are in place. Soft Tissues: The left gluteus evens muscle is thickened and there does appear to be some loss of t he normal muscular striations. This is incompletely imaged on this examination. This was not presen t on prior examinations. PELVIS: Bladder: There is mild diffuse thickening of the wall of the urinary bladder. Reproductive Organs: Prostate gland is mildly enlarged. Lymph Nodes: Within normal limits. Bones: Within normal limits for the patient's age. IMPRESSION: 1. Moderate size right pleural effusion and right basilar infiltrate which may represent atelectasis or pneumonia. Possible tiny left pleural effusion. 2. Question of thickening of the wall of the rectum. Inflammatory infectious process. Neoplasm edu ot be excluded. Please correlate with physical exam. 3. Colonic diverticulosis without evidence of acute diverticulitis. 4. Enlarged prostate gland. Mild diffuse thickening of the wall of the urinary bladder. This may be due to chronic bladder outlet obstruction, cystitis or possible neoplasm. Follow-up as clinically a ppropriate. 5. Enlarged left gluteus evens muscle. This is incompletely imaged on the current examination. Pl ease correlate with physical exam. The finding is nonspecific. Intramuscular mass, infection or tra conrado should be considered. 6. Cholelithiasis without evidence of biliary ductal dilatation. RADIATION DOSE DELIVERED: Total DLP DATA REPOSITORY: All CT scans at this facility are submitted to the National Radiology Data Registry (NRDR) Dose Index Registry (DIR) with the [employer] (A[employer]). RADIATION OPTIMIZATION: All CT scans at this facility use at least one of these dose optimization te chniques: automated exposure control; mA and/or kV adjustment per patient size (includes targeted exa ms where dose is matched to clinical indication); or iterative reconstruction.
[2023-08-12] MEDS: MAGNESIUM SULFATE 2 GM/50 ML BAG IVPB ×2 (10:26→17:28)
[2023-08-12] MEDS: POTASSIUM CHLORIDE 20 MEQ/100 ML BAG 50 MEQ IVPB ×2 (10:32→14:54)
[2023-08-12] MEDS: Norepinephrine in D5W 8 MG/250 ML BAG 9.375 MG IV (11:59)
--- NOTE | 2023-08-12 12:00 | RT.EKG_ITS ---
APPROVED REPORT Exam: Resting ECG Reason for Exam: hypotension Patient Location: E HR:85 bpm ECG Measurements Heart Rate 85 AXIS SD 67 P 0 QRSd 146 QRS -81 QT 448 T 92 QTc 532 Conclusion Sinus rhythm...normal P axis, V-rate 60- 99 Left bundle branch block...QRSd>120, broad/notched R
[2023-08-12 12:14] LABS: Abs Immature Grans 0.44 10^3/uL (0.0-0.06); Absolute Basophil Count 0.08 10^3/uL (0.0-0.2); Absolute Neutrophil Count 24.08 10^3/uL (1.2-6.7); Basophils % 0.3; HCT 27.8 % (40.0-50.0); HGB 9.4 g/dL (13.5-17.5); Immature Grans % 1.7; Lymphocytes % 1.1; MCH 28.5 pg (27.0-33.0); MCHC 33.8 % (32.0-36.0); MCV 84 fL (80-95); Monocytes % 5.7; Neutrophils % 91.2; Platelet Count 322 10^3/uL (130-400); RDW 14.6 % (11.8-14.1); RDW-SD 45.2 fL
[2023-08-12 12:22] LABS: Anion Gap 11.4 mmol/L (3-11); BUN 46 mg/dL (7-18); CO2 26.6 mmol/L (21.0-32.0); Calcium 7.8 mg/dL (8.5-10.1); Chloride 95 mmol/L (98-107); Estimated GFR 15.52 (mL/min/1.73m2); Glucose 163 mg/dL (74-106); Sodium 133 mmol/L (136-145)
[2023-08-12 12:25] LABS: CREATININE 3.8 mg/dL (0.70-1.30); Potassium 2.8 mmol/L (3.5-5.1)
[2023-08-12 12:26] LABS: Troponin I 1636 ng/L (<or=60)
[2023-08-12 12:34] LABS: Absolute Lymphocyte Count 0.29 10^3/uL (1.2-3.4)
--- NOTE | 2023-08-12 13:39 | HPE_ITS ---
Date of service: 08/12/23 Time of Service: 13:40 Assessment and Plan Assessment and plan (1) Septic shock: Status: Acute Assessment and plan: - Patient meets septic shock criteria with initial heart rate greater than 90, white blood cell count greater than 20, presumed source of infection being combination of infectious diarrhea/colitis and aspiration pneumonia, associated infectious encephalopathy, acute kidney injury, type II NSTEMI, and persistent hypotension with mean arterial pressure as low as 45 despite fluid rehydration requiring initiation of IV Levophed -Started on Zosyn in the emergency department, will continue as this will cover infectious diarrhea as well as aspiration pneumonia -Currently on 7mcg of Levophed, will titrate with goal mean arterial pressure greater than 65 -If patient persistently requires 10mcg or greater, central line will be placed -Blood cultures have been drawn, will follow-up for results (2) Infectious diarrhea: Status: Acute Assessment and plan: - Presumed source of infection as there was some signs of inflammation on noncontrast CT, patient has had 4 days of intractable diarrhea -C. difficile and other stool studies have been sent, will add p.o. vancomycin if C. difficile is positive (3) Acute renal failure: Status: Acute Assessment and plan: - Likely secondary to baseline CKD, in combination with 4 days of intractable diarrhea and poor p.o. intake as well as rhabdomyolysis -Creatinine currently 3.8 -Status post gentle fluid hydration in the emergency department -Follow-up a.m. BMP (4) Acute respiratory failure with hypoxia: Status: Acute Assessment and plan: - Likely secondary to septic shock as noted above and more specifically possible aspiration event that occurred while patient was down also resulting in rhabdomyolysis and VOLODYMYR -Currently on 2 L nasal cannula, wean as tolerated with goal O2 saturation greater than 92% (5) Pleural effusion: Status: Acute Assessment and plan: - Moderate, noted on chest CT -Patient has persistent hypoxia or get significantly worse will discuss with general surgery for consideration of thoracentesis (6) Aspiration pneumonia: Status: Acute Assessment and plan: - Consolidation noted on noncontrast CT -Likely occurred while patient was bedbound and minimally responsive -On Zosyn as noted above (7) NSTEMI (non-ST elevated myocardial infarction): Status: Acute Assessment and plan: - EKG within normal limits, patient not complaining of chest pain -Elevated troponin up to 1636 likely a type II NSTEMI in the setting of septic shock, severe dehydration, poor clearance due to acute renal failure -Will trend troponin until begins to decline (8) Rhabdomyolysis: Status: Acute Assessment and plan: - CK 706 148, likely secondary to/exacerbated by acute renal failure from dehydration, patient being bedbound and found down -Will monitor CK levels and fluid rehydrate as needed (9) Hypertension: Assessment and plan: - Holding home antihypertensives while patient is in septic shock (10) Hypercholesteremia: Assessment and plan: - Continue home statin (11) COPD (chronic obstructive pulmonary disease): Assessment and plan: - Without acute exacerbation History of Present Illness History of Present Illness Chief Complaint: Intractable diarrhea for 4 days N arrative: 78-year-old male with past medical history COPD, congestive heart failure, chronic anemia, diabetic neuropathy, renal insufficiency, hypertension presenting the emergency department complaints of intractable diarrhea for 4 days. Patient is an unreliable historian but was able to state that he has had diarrhea for the last 4 days and pain all over, though he apparently denies abdominal pain. He also states he has been not been able to get out of bed, he is normally able to ambulate without any assistance does not use any oxygen at home. In the emergency department the patient was noted as being afebrile, with heart rate of 95, and initial blood pressure of 149/81, respiratory rate of 16 oxygen saturation of 95% on room air. However, patient's blood pressure declined, as low as 64/30 with a mean arterial pressure of 45 which required initiation of IV norepinephrine with improvement of his blood pressure with systolics in the 1 teens. Additionally, his CBC showed a white blood cell count of 28.6, hemoglobin of 10.7, platelet count of 449, normal VBG with lactic acid of 1.3, sodium of 133, potassium of 2.8, anion gap of 11.4, BUN 46, creatinine of 3.8 (baseline of 1.4), troponin of 1636 and a proBNP of about 15,000. CT chest abdomen pelvis was ordered and showed a moderate right pleural effusion right basilar infiltrate which may be atelectasis or pneumonia, question thickening of the wall of the rectum indicating inflammatory infectious process though neoplasm cannot be excluded, colonic diverticulosis without acute diverticulitis and large gluteal evens muscle incomplete imaging as patient was not able to tolerate the rate IV contrast, intramuscular mass, infection or trauma should be considered. While in the emergency department the patient had IV fluid hydration of 750 mL and did not receive the recommended 30 cc/kg bolus as he does have a history of congestive heart failure. He was also started on IV Zosyn. At which time, emergency room PA paged hospitalist for admission for patient with septic shock secondary to presumed infectious diarrhea/colitis with associated acute hypoxic respiratory failure, acute renal failure, and type II NSTEMI. Review of Systems All systems reviewed & are unremarkable except as noted in HPI and below PFSH All Active Problems (Updated 08/12/23 @ 13:55 by Pb Corley MD) NSTEMI (non-ST elevated myocardial infarction) (Acute) Aspiration pneumonia (Acute) Pleural effusion (Acute) Acute respiratory failure with hypoxia (Acute) Acute renal failure (Acute) Septic shock (Acute) Infectious diarrhea (Acute) Rhabdomyolysis (Acute) Parotid mass (Acute) Medical History Intention tremor COPD (chronic obstructive pulmonary disease) Dyslipidemia Metabolic syndrome Warthin's tumor CHF (congestive heart failure) Tobacco use Anemia Diabetic neuropathy Renal insufficiency Depression Gangrene Nodular prostate Hematuria Lower urinary tract symptoms (LUTS) Hypercholesteremia Hypertension Diabetes Surgical History Rotator Cuff Repair LEFT LASER SURGERY LEFT EYE KNEE REPAIR chronic pain and collagenous disruption. Colonoscopy - MAC (~2001) polyps and diverticulosis Colonoscopy - IV Sedation DR.C Sobia GUILLERMO;3 POLYPS Appendectomy AGE 15 Social History Smoking/Tobacco Use Status: Current every day Tobacco Type: pipe Smoking risk assessment performed?: Yes Alcohol Intake: never Drug use: Never Substance use type: does not use Housing: house Do you feel safe at home: Yes Do you feel safe in your relationship?: Yes Meds Allergies and Home Medications Allergies Allergy/AdvReac Type Severity Reaction Status Date / Time No Known Drug Allergies Allergy Unknown Unverified 08/12/23 09:00 Home Medications Medication Instructions Recorded Confirmed Type blood sugar diagnostic (Blood #200 strips 09/10/14 07/09/22 History Glucose Test strips) blood-glucose meter #1 ea 01/16/15 11/14/22 History insulin glargine 100 unit/mL (3 40 units SQ HS #1 pen 09/10/14 08/12/23 History mL) subcutaneous pen (Lantus Solostar U-100 Insulin) lancets 28 gauge #200 ea 09/10/14 07/09/22 History insulin aspart U-100 100 unit/mL 20 unit subcut DAILY 11/23/19 08/12/23 History (3 mL) subcutaneous pen (Novolog FlexPen U-100 Insulin aspart) atorvastatin 40 mg tablet 40 mg PO DAILY 04/20/20 08/12/23 History insulin detemir U-100 100 unit/mL 100 unit subcut DAILY 04/20/20 08/12/23 History (3 mL) subcutaneous pen (Levemir FlexTouch U-100 Insulin) insulin lispro 100 unit/mL 15 unit subcut TID 04/20/20 08/12/23 History subcutaneous pen (Humalog KwikPen (U-100) Insulin) insulin syr/ndl U100 half yovani 0.3 #100 ea 04/20/20 07/09/22 History mL 31 gauge x 5/16 (BD Insulin Syringe Ultra-Fine (half unit)) aspirin 81 mg tablet,delayed 81 mg PO DAILY #30 tabs 08/17/22 08/12/23 Rx release (Adult Aspirin Regimen) citalopram 10 mg tablet 10 mg PO DAILY 06/03/23 08/12/23 History metoprolol succinate 25 mg 12.5 mg PO DAILY 06/03/23 08/12/23 History tablet,extended release 24 hr sitagliptin phosphate 100 mg 100 mg PO DAILY 06/03/23 08/12/23 History tablet (Januvia) tamsulosin 0.4 mg capsule (Flomax) 0.8 mg PO DAILY 07/04/23 08/12/23 History lisinopril 10 mg tablet 10 mg PO DAILY 07/30/23 08/12/23 History torsemide 10 mg tablet 20 mg PO DAILY 07/30/23 08/12/23 History trazodone 100 mg tablet 100 mg PO DAILY 07/30/23 08/12/23 History Exam Narrative Exam Narrative: Chronically ill-appearing older gentleman laying in bed in no acute distress, oriented to person and place but does not remember the events leading to his hospitalization, 2 L nasal cannula in place, heart regular rate rhythm, lungs clear to auscultation bilaterally, abdomen soft, nontender nondistended, multiple excoriations on bilateral upper and lower extremities in various stages of healing, 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 Results Labs 08/12/23 12:05 08/12/23 12:05 Labs: Laboratory Results - last 24 hr 08/12/23 08/12/23 08/12/23 08:50 09:28 09:35 WBC 28.61 H* RBC 3.67 L Hgb 10.7 L Hct 31.1 L MCV 85 MCH 29.2 MCHC 34.4 RDW 14.3 H Plt Count 449 H MPV 9.3 Immature Gran % See Differential Neutrophils % 88.0 Band Neutrophils % 6 Lymphocytes % 1.0 Monocytes % 5.0 Eosinophils % 0.0 Basophils % 0.0 Nucleated RBC % 0.0 Absolute Neutrophils 26.89 H Absolute Lymphocytes 0.29 L Absolute Monocytes 1.43 H Absolute Eosinophils 0.00 Absolute Basophils 0.00 RBC Morphology Normal ESR 74 H VBG pH 7.39 VBG pCO2 46 VBG pO2 36 VBG HCO3 28 VBG Total CO2 26 VBG O2 Saturation 63 VBG Base Excess 3 VBG Lactate 1.3 Sodium 135 L Potassium 2.8 L* Chloride 94 L Carbon Dioxide 28.2 Anion Gap 12.8 H BUN 45 H Creatinine 3.9 H* Est GFR (CKD-EPI 2020) 15.05 Glucose 150 H Calcium 8.1 L Magnesium 1.4 L Total Bilirubin 0.7 Conjugated Bilirubin 0.3 H AST 227 H ALT 60 Alkaline Phosphatase 91 Creatine Kinase 7648 H Troponin I 1777 H* C-Reactive Protein > 25.00 H NT-Pro-B Natriuret Pep 95175 H Total Protein 7.1 Albumin 1.8 L Lipase 10 L Procalcitonin 20.8 Urine Color Yellow Urine Clarity Sl Cloudy Urine pH 6.0 Ur Specific [place] 1.025 Urine Protein >=300 H Urine Ketones Negative Urine Blood Large H Urine Nitrite Negative Urine Bilirubin Moderate H Urine Urobilinogen 0.2 Ur Leukocyte Esterase Trace H Urine RBC 20-50 H Urine WBC 3-5 Ur Epithelial Cells Many Urine Crystals Negative Urine Bacteria Moderate Urine Casts Negative Urine Mucus Trace Ur Culture Indicated? No/Sq. Contamination Urine Glucose Negative 08/12/23 08/12/23 11:50 12:05 WBC 26.40 H* RBC 3.30 L Hgb 9.4 L Hct 27.8 L MCV 84 MCH 28.5 MCHC 33.8 RDW 14.6 H Plt Count 322 MPV 9.0 Immature Gran % 1.7 Neutrophils % 91.2 Band Neutrophils % Lymphocytes % 1.1 Monocytes % 5.7 Eosinophils % 0.0 Basophils % 0.3 Nucleated RBC % 0.0 Absolute Neutrophils 24.08 H Absolute Lymphocytes 0.29 L Absolute Monocytes 1.50 H Absolute Eosinophils 0.00 Absolute Basophils 0.08 RBC Morphology ESR VBG pH VBG pCO2 VBG pO2 VBG HCO3 VBG Total CO2 VBG O2 Saturation VBG Base Excess VBG Lactate Sodium 133 L Potassium 2.8 L* Chloride 95 L Carbon Dioxide 26.6 Anion Gap 11.4 H BUN 46 H Creatinine 3.8 H* Est GFR (CKD-EPI 2020) 15.52 Glucose 163 H Calcium 7.8 L Magnesium Total Bilirubin Conjugated Bilirubin AST ALT Alkaline Phosphatase Creatine Kinase Troponin I 1636 H* C-Reactive Protein NT-Pro-B Natriuret Pep Total Protein Albumin Lipase Procalcitonin Urine Color Urine Clarity Urine pH Ur Specific [place] Urine Protein Urine Ketones Urine Blood Urine Nitrite Urine Bilirubin Urine Urobilinogen Ur Leukocyte Esterase Urine RBC Urine WBC Ur Epithelial Cells Urine Crystals Urine Bacteria Urine Casts Urine Mucus Ur Culture Indicated? Urine Glucose Last Vital Signs Temp 98.5 F 08/12/23 08:19 Pulse 85 08/12/23 12:15 Resp 20 08/12/23 12:15 BP 74/44 L 08/12/23 12:15 Pulse Ox 96 08/12/23 12:19 Time Spent Time spent with Patient: >75 minutes Time was spent: preparing to see the patient(eg.review tests), obtaining and/or reviewing separately otained hiistory, ordering medications,tests, procedures, referring, communicating with other health hearing care professional, indepentently interpreting results, counseling the patient and care coordination
--- NOTE | 2023-08-12 15:20 | W.PC.ACHO ---
Registration Status: REG ER Primary Language: Preferred Language: Wolof ED Information & Data Chief Complaint Nausea/Vomit/Diar 08/12/23 09:40 Triage Note Weakness/Diarrhea for 4 days 08/12/23 08:19 - tachy for EMS. 173 blood sugar - no morning medications Medical / Surgical History (Last Reviewed 08/12/23 @ 13:47 by Pb Corley MD) Intention tremor COPD (chronic obstructive pulmonary disease) Dyslipidemia Metabolic syndrome Warthin's tumor CHF (congestive heart failure) Tobacco use Anemia Diabetic neuropathy Renal insufficiency Depression Gangrene Nodular prostate Hematuria Lower urinary tract symptoms (LUTS) Hypercholesteremia Hypertension Diabetes (Last Reviewed 08/12/23 @ 13:47 by Pb Corley MD) Rotator Cuff Repair LASER SURGERY KNEE REPAIR Colonoscopy - MAC (~2001) Colonoscopy - IV Sedation Appendectomy Most Recent Vital Signs Temperature 36.9 C 08/12/23 08:19 Temperature Source Temporal Artery Scan 08/12/23 08:19 Pulse 85 08/12/23 12:15 Pulse 86 08/12/23 12:15 Respiratory Rate 20 08/12/23 12:15 Respiratory Effort Normal 08/12/23 08:43 Blood Pressure 74/44 L 08/12/23 12:15 Blood Pressure Mean 52 08/12/23 12:15 Blood Pressure Position Supine 08/12/23 08:19 Pulse Oximetry 96 08/12/23 12:19 Oxygen Delivery Method Nasal Cannula 08/12/23 12:19 Oxygen Flow Rate 2 08/12/23 12:19 Allergies No Known Drug Allergies Allergy (Unknown, Unverified 08/12/23 09:00) Precautions Isolation Standard precaution 08/12/23 08:43 Active Medications Generic Name Dose Route Start Last Admin Trade Name Chadwickq PRN Reason Stop Dose Admin Ringer's Solution 1,000 mls @ 125 mls/hr 08/12/23 08:45 08/12/23 10:25 IV Infused INFUSION TIMA Infusion Sodium Chloride 1,000 mls @ 125 mls/hr 08/12/23 10:15 08/12/23 10:25 Saline 1000ml Bag IV 125 mls/hr INFUSION TIMA Administration Norepinephrine Bitartrate 8 mg in 250 mls @ 9.375 mls/hr 08/12/23 12:00 08/12/23 12:24 IV 6.99 mcg/min INFUSION TIMA 13.1 mls/hr Titration Protocol 5 MCG/MIN IV IV Catheter Type [Left Forearm Peripheral IV ] IV Catheter Type [Right Peripheral IV Antecubital] IV Catheter Type [Left Peripheral IV Antecubital] IV Catheter Gauge [Left 16 Forearm] IV Catheter Gauge [Right 18 Antecubital] IV Catheter Gauge [Left 18 Antecubital] Diet Orders Category Date Time Status Diabetes Consistent CHO/Heart Healthy [DIET] Nutrition 08/12/23 Dinner Active Diagnostics 08/12/23 08/12/23 08/12/23 Range/Units 12:45 12:05 11:50 WBC 26.40 H* (4.4-10.8) 10^3/uL RBC 3.30 L (4.36-5.78) 10^6/uL Hgb 9.4 L (13.5-17.5) g/dL Hct 27.8 L (40.0-50.0) % MCV 84 (80-95) fL MCH 28.5 (27.0-33.0) pg MCHC 33.8 (32.0-36.0) % RDW 14.6 H (11.8-14.1) % Plt Count 322 (130-400) 10^3/uL MPV 9.0 (8.0-11.0) fL Immature Gran % 1.7 Neutrophils % 91.2 Band Neutrophils % Lymphocytes % 1.1 Monocytes % 5.7 Eosinophils % 0.0 Basophils % 0.3 Nucleated RBC % 0.0 (0.0-0.3) % Absolute Neutrophils 24.08 H (1.2-6.7) 10^3/uL Absolute Lymphocytes 0.29 L (1.2-3.4) 10^3/uL Absolute Monocytes 1.50 H (0.1-0.8) 10^3/uL Absolute Eosinophils 0.00 (0.0-0.7) 10^3/uL Absolute Basophils 0.08 (0.0-0.2) 10^3/uL RBC Morphology ESR (0-20) mm/hr VBG pH (7.31-7.41) VBG pCO2 (41-51) mmHg VBG pO2 mmHg VBG HCO3 (23-28) mmol/L VBG Total CO2 (24-29) mmol/L VBG O2 Saturation % VBG Base Excess (-2-3) mmol/L VBG Lactate (0.6-1.4) mmol/L Sodium 133 L (136-145) mmol/L Potassium 2.8 L* (3.5-5.1) mmol/L Chloride 95 L (98-107) mmol/L Carbon Dioxide 26.6 (21.0-32.0) mmol/L Anion Gap 11.4 H (3-11) mmol/L BUN 46 H (7-18) mg/dL Creatinine 3.8 H* (0.70-1.30) mg/dL Est GFR (CKD-EPI 2020) 15.52 (mL/min/1.73m2) Glucose 163 H (74-106) mg/dL Calcium 7.8 L (8.5-10.1) mg/dL Magnesium (1.8-2.4) mg/dL Total Bilirubin (0.2-1.0) mg/dL Conjugated Bilirubin (0.0-0.2) mg/dL AST (15-37) U/L ALT (16-63) U/L Alkaline Phosphatase (46-116) U/L Creatine Kinase (39-308) U/L Troponin I 1636 H* (<or=60) ng/L C-Reactive Protein (0.0-0.3) mg/dL NT-Pro-B Natriuret Pep (<300) pg/mL Total Protein (6.4-8.2) g/dL Albumin (3.4-5.0) g/dL Lipase (16-77) U/L Procalcitonin ng/mL Urine Color (Yellow) Urine Clarity (Clear) Urine pH (5-8) Ur Specific [place] (1.005-1.025) Urine Protein (Negative) mg/dL Urine Ketones (Negative) mg/dL Urine Blood (Negative) Urine Nitrite (Negative) Urine Bilirubin (Negative) Urine Urobilinogen (Up to 0.2) mg/dL Ur Leukocyte Esterase (Negative) Urine RBC (0-2) HPF Urine WBC (0-5) HPF Ur Epithelial Cells (Negative) HPF Urine Crystals (Negative) HPF Urine Bacteria (Negative) HPF Urine Casts (Negative) LPF Urine Mucus (Negative) Ur Culture Indicated? Urine Glucose (Negative) mg/dL Patient ABO/Rh A Positive Antibody Screen NEGATIVE 12/18/23 12/18/23 12/18/23 Range/Units 09:35 09:28 08:50 WBC 28.61 H* (4.4-10.8) 10^3/uL RBC 3.67 L (4.36-5.78) 10^6/uL Hgb 10.7 L (13.5-17.5) g/dL Hct 31.1 L (40.0-50.0) % MCV 85 (80-95) fL MCH 29.2 (27.0-33.0) pg MCHC 34.4 (32.0-36.0) % RDW 14.3 H (11.8-14.1) % Plt Count 449 H (130-400) 10^3/uL MPV 9.3 (8.0-11.0) fL Immature Gran % See Differential Neutrophils % 88.0 Band Neutrophils % 6 Lymphocytes % 1.0 Monocytes % 5.0 Eosinophils % 0.0 Basophils % 0.0 Nucleated RBC % 0.0 (0.0-0.3) % Absolute Neutrophils 26.89 H (1.2-6.7) 10^3/uL Absolute Lymphocytes 0.29 L (1.2-3.4) 10^3/uL Absolute Monocytes 1.43 H (0.1-0.8) 10^3/uL Absolute Eosinophils 0.00 (0.0-0.7) 10^3/uL Absolute Basophils 0.00 (0.0-0.2) 10^3/uL RBC Morphology Normal ESR 74 H (0-20) mm/hr VBG pH 7.39 (7.31-7.41) VBG pCO2 46 (41-51) mmHg VBG pO2 36 mmHg VBG HCO3 28 (23-28) mmol/L VBG Total CO2 26 (24-29) mmol/L VBG O2 Saturation 63 % VBG Base Excess 3 (-2-3) mmol/L VBG Lactate 1.3 (0.6-1.4) mmol/L Sodium 135 L (136-145) mmol/L Potassium 2.8 L* (3.5-5.1) mmol/L Chloride 94 L (98-107) mmol/L Carbon Dioxide 28.2 (21.0-32.0) mmol/L Anion Gap 12.8 H (3-11) mmol/L BUN 45 H (7-18) mg/dL Creatinine 3.9 H* (0.70-1.30) mg/dL Est GFR (CKD-EPI 2020) 15.05 (mL/min/1.73m2) Glucose 150 H (74-106) mg/dL Calcium 8.1 L (8.5-10.1) mg/dL Magnesium 1.4 L (1.8-2.4) mg/dL Total Bilirubin 0.7 (0.2-1.0) mg/dL Conjugated Bilirubin 0.3 H (0.0-0.2) mg/dL AST 227 H (15-37) U/L ALT 60 (16-63) U/L Alkaline Phosphatase 91 (46-116) U/L Creatine Kinase 7648 H (39-308) U/L Troponin I 1777 H* (<or=60) ng/L C-Reactive Protein > 25.00 H (0.0-0.3) mg/dL NT-Pro-B Natriuret Pep 44436 H (<300) pg/mL Total Protein 7.1 (6.4-8.2) g/dL Albumin 1.8 L (3.4-5.0) g/dL Lipase 10 L (16-77) U/L Procalcitonin 20.8 ng/mL Urine Color Yellow (Yellow) Urine Clarity Sl Cloudy (Clear) Urine pH 6.0 (5-8) Ur Specific [place] 1.025 (1.005-1.025) Urine Protein >=300 H (Negative) mg/dL Urine Ketones Negative (Negative) mg/dL Urine Blood Large H (Negative) Urine Nitrite Negative (Negative) Urine Bilirubin Moderate H (Negative) Urine Urobilinogen 0.2 (Up to 0.2) mg/dL Ur Leukocyte Esterase Trace H (Negative) Urine RBC 20-50 H (0-2) HPF Urine WBC 3-5 (0-5) HPF Ur Epithelial Cells Many (Negative) HPF Urine Crystals Negative (Negative) HPF Urine Bacteria Moderate (Negative) HPF Urine Casts Negative (Negative) LPF Urine Mucus Trace (Negative) Ur Culture Indicated? No/Sq. Contamination Urine Glucose Negative (Negative) mg/dL Patient ABO/Rh Antibody Screen 08/12/23 09:21 Blood Culture - Pending Blood 08/12/23 09:15 Blood Culture - Pending Blood Intake and Output - 24 Hour Total 08/12/23 08:15 thru 08/12/23 14:11 Intake Total 1304.149 Output Total 100 Balance 1204.149 Weight 81.647 kg Intake: IV 1304.149 Output: Urine 100 Other: Urine Color Yellow Straw Urine Appearance Cloudy Stool Size Moderate Stool Characteristics Liquid Urinary Catheter Urinary Catheter Date of 08/12/23 Insertion [Uretheral (Vázquez)] Time of insertion [Uretheral ( 14:12 Vázquez)] Falls Risk Assessment History of Falls No History 08/12/23 08:43 Contributing Factors Incontinence 08/12/23 08:43 Ambulatory Aids Uses ambulatory device + 08/12/23 08:43 Gait Evaluation No gait disturbance 08/12/23 08:43 Cognition No cognitive impairment 08/12/23 08:43 Fall Total Score 33 08/12/23 08:43 Level of Risk Moderate Risk 08/12/23 08:43 Problems (Last Reviewed 08/12/23 @ 13:47 by Pb Corley MD) NSTEMI (non-ST elevated myocardial infarction) (Acute) Aspiration pneumonia (Acute) Pleural effusion (Acute) Acute respiratory failure with hypoxia (Acute) Acute renal failure (Acute) Septic shock (Acute) Infectious diarrhea (Acute) Rhabdomyolysis (Acute) v v v v v v v v v Sending and/or Receiving Nurses: Please use comment section below to note any information pertinent to the patient hand-off not included above. Information / Comments: Report received from: nabila king ?'s answered
[2023-08-12 17:59] LABS: Bilirubin Small (Negative); Blood Large (Negative); Clarity Turbid (Clear); Glucose Negative (Negative); Ketones Negative (Negative); Leukocyte Esterase Large (Negative); Nitrite Negative (Negative); Specific Gravity 1.025 (1.005-1.025); Urobilinogen 0.2 mg/dL (Up to 0.2)
[2023-08-12 18:08] LABS: WBC >50 HPF (0-5)
[2023-08-12 18:09] LABS: C & S Indicated? Yes
--- NOTE | 2023-08-12 20:45 | RT.EKG_ITS ---
APPROVED REPORT Exam: Resting ECG Reason for Exam: st increasing? Patient Location: I HR:105 bpm ECG Measurements Heart Rate 105 AXIS TX [id number] P -78 QRSd 150 QRS -80 QT 480 T 91 QTc 635 Conclusion Sinus tachycardia LBBB
--- NOTE | 2023-08-12 21:19 | WOUNDCONS ---
Date of service: 08/12/23 Time of Service: 21:21 Wound Initial Evaluation Narrative Narrative: 78 year old male presents to ED with c/o diarrhea for 4 days. Patient reports that he ambulates at baseline independently. However, he is now bed-bound with weakness. Patient is found to be a poor historian for the documented medical history. Upon assessment the right foot presents with 5 amputated toes with a well healed scar and an abrasion laterally just above the heel. The left foot has a diabetic ulcer on the medial plantar surface of the first metatarsophalangeal joint and a diabetic ulcer over the lateral aspect of the fifth metatarsophalangeal joint. Bilateral pedal pulses are absent to palpation and Doppler ultrasound. Bilateral popliteal pulses are present with Doppler ultrasound. Bilateral knees have pink, thin, friable skin with healing abrasions. Per patient report the knees sustained injuries last August from a fall and reportedly crawling on concrete. The left elbow has an abrasion possibly due to a repetitive motion similar to constant repositioning pressure. The patient is febrile, hypotensive and admitted for septic shock and rhabdomyolysis. This check writer salesperson reviewed the H&P, allergies, most recent labs and a photo consent was obtained verbally due to enteric precautions. Wound Right Lateral Heel: Wound Type: Abrasion Wound Surrounding Tissue Appearance: Shively Wound Length: 1 cm Wound Width: 1 cm Additional Other Comments: no pictures of circular abrasion Left Medial Foot: Wound Type: Diabetic Ulcer Percent of Wound Bed Eschar/Black: 50 Wound Length: 1.7 cm Wound Width: 2.5 cm Wound Drainage Amount: Minimal Left Lateral Foot: Wound Type: Diabetic Ulcer Percent of Wound Bed Eschar/Black: 50 Wound Length: 0.8 cm Wound Width: 0.8 cm Left Knee: Wound Type: Abrasion Wound Length: 9 cm Wound Width: 6.5 cm Right Knee: Wound Length: 3 cm Wound Width: 4.5 cm Left Elbow: Wound Type: Abrasion Wound Length: 5 cm Wound Width: 1 cm Wound Drainage Amount: None Additional Other Comments: 1cm circular abrasion posterior and proximal to elbow abrasion Photo Photo: Treatment/Dressing Change Topicals/Ointments: Anasept Gel Cleanse With: Anasept Dressing Types: Mepilex w/Border Dressing Comment: Diabetic ulcers on left foot are covered with mepilex dressing. Other abrasions on bilateral knees and right foot are open to air. Left elbow abrasions are covered with elbow protectors. Nutrition Education Reviewed Nutrition Education: Yes Note: Discussed the importance of increased protein for optimal wound healing. Patient is currently on a clear liquid diet. A boost energy drink supplement has been supplied to assist with protein needs. Recomendation Recomendation:: Change dressings left foot every 3 days. [place] Anasept wound overhead cleaner maintainer, let dwell and pat dry. Apply dab of anasept wound gel on diabetic ulcers. Apply Mepilex with border on each wound of left foot. Physcian/Nurse Practioner Notified: Yes Referrals: Dietary and Podiatry Treatment Time Time Total Time Spent with Patient: 45
[2023-08-12] MEDS: Acetaminophen 325 MG TAB PO (21:27)
[2023-08-12 23:17] LABS: C Diff PCR Negative (Negative)
[2023-08-12] MEDS: Nystatin 500000 UNITS/5 ML SUSP 5ML CUP PO (23:41)
[2023-08-12] MEDS: Insulin Aspart 300 UNITS/3 ML PEN SC (23:42)
[2023-08-13] VITALS (26 sets, daily range): BP systolic 80–142; BP diastolic 54–98; PULSE 72–107; RESP 14–26; TEMP 37.3–37.9; O2SAT 86–96
[2023-08-13] MEDS: PIPERACILLIN/TAZO 2.25 GM in Normal Saline 50 ML IVPB ×3 (01:19→19:26)
[2023-08-13 05:48] LABS: HCT 27.9 % (40.0-50.0); HGB 9.6 g/dL (13.5-17.5); MCHC 34.4 % (32.0-36.0); MCV 84 fL (80-95); MPV 9.6 fL (8.0-11.0); Platelet Count 333 10^3/uL (130-400); RBC 3.31 10^6/uL (4.36-5.78); RDW 14.8 % (11.8-14.1); WBC 20.55 10^3/uL (4.4-10.8)
[2023-08-13 05:59] LABS: Anion Gap 11.9 mmol/L (3-11); BUN 51 mg/dL (7-18); CO2 24.1 mmol/L (21.0-32.0); CREATININE 3.5 mg/dL (0.70-1.30); Calcium 7.5 mg/dL (8.5-10.1); Chloride 97 mmol/L (98-107); Estimated GFR 17.13 (mL/min/1.73m2); Glucose 135 mg/dL (74-106); Sodium 133 mmol/L (136-145)
[2023-08-13 06:03] LABS: Potassium 2.7 mmol/L (3.5-5.1)
[2023-08-13] MEDS: Normal Saline 1,000 ML 125 ML IV ×2 (06:06→16:45)
[2023-08-13] MEDS: Potassium Chloride 20 MEQ TABCR 40 MEQ PO (06:32)
[2023-08-13] MEDS: Nystatin 500000 UNITS/5 ML SUSP 5ML CUP PO ×4 (06:32→19:29)
[2023-08-13] MEDS: POTASSIUM CHLORIDE 10 MEQ/100 ML BAG 100 MEQ IVPB (06:33)
[2023-08-13 07:36] LABS: Source Nasal/Nares
--- NOTE | 2023-08-13 07:37 | NUR.NOTE ---
accessed pts chart to see the number of EKG orders.Nursing Note:
[2023-08-13 08:21] LABS: COVID-19 PCR Negative (Negative)
[2023-08-13] MEDS: Atorvastatin 40 MG TAB PO (09:00)
[2023-08-13] MEDS: Citalopram 10 MG TAB PO (09:00)
[2023-08-13] MEDS: Insulin Aspart 300 UNITS/3 ML PEN SC ×4 (09:01→22:33)
--- NOTE | 2023-08-13 09:16 | PGE_ITS ---
Date of Service Date of service: 08/13/23 Time of Service: 09:16 Assessment and Plan Assessment and plan (1) Septic shock: Status: Acute Assessment and plan: - Patient meets septic shock criteria with initial heart rate greater than 90, white blood cell count greater than 20, presumed source of infection being combination of infectious diarrhea/colitis and aspiration pneumonia, associated infectious encephalopathy, acute kidney injury, type II NSTEMI, and persistent hypotension with mean arterial pressure as low as 45 despite fluid rehydration requiring initiation of IV Levophed -Started on Zosyn in the emergency department, will continue as this will cover infectious diarrhea as well as aspiration pneumonia -Had been on 7mcg of Levophed but has been weaned and discontinued since afternoon 08/12 -Blood cultures have been drawn, will follow-up for results (2) Infectious diarrhea: Status: Acute Assessment and plan: - Presumed source of infection as there was some signs of inflammation on noncontrast CT, patient has had 4 days of intractable diarrhea -C. difficile and other stool studies have been sent, will add p.o. vancomycin if C. difficile is positive (3) Acute renal failure: Status: Acute Assessment and plan: - Likely secondary to baseline CKD, in combination with 4 days of intractable diarrhea and poor p.o. intake as well as rhabdomyolysis -Creatinine 3.8 on admission, down to 3.5 AM 08/13 -Status post gentle fluid hydration in the emergency department -Follow-up a.m. BMP (4) Acute respiratory failure with hypoxia: Status: Acute Assessment and plan: - Likely secondary to septic shock as noted above and more specifically possible aspiration event that occurred while patient was down also resulting in rhabdomyolysis and VOLODYMYR -Currently on 1 L nasal cannula, wean as tolerated with goal O2 saturation greater than 92% (5) Pleural effusion: Status: Acute Assessment and plan: - Moderate, noted on chest CT -Patient has persistent hypoxia or get significantly worse will discuss with general surgery for consideration of thoracentesis (6) Aspiration pneumonia: Status: Acute Assessment and plan: - Consolidation noted on noncontrast CT -Likely occurred while patient was bedbound and minimally responsive -On Zosyn as noted above (7) NSTEMI (non-ST elevated myocardial infarction): Status: Acute Assessment and plan: - EKG within normal limits, patient not complaining of chest pain -Elevated troponin up to 1636 likely a type II NSTEMI in the setting of septic shock, severe dehydration, poor clearance due to acute renal failure -Will trend troponin until begins to decline (8) Rhabdomyolysis: Status: Acute Assessment and plan: - CK 706 148, likely secondary to/exacerbated by acute renal failure from dehydration, patient being bedbound and found down -Will monitor CK levels and fluid rehydrate as needed (9) Hypertension: Assessment and plan: - Holding home antihypertensives while patient is in septic shock (10) Hypercholesteremia: Assessment and plan: - Continue home statin (11) COPD (chronic obstructive pulmonary disease): Assessment and plan: - Without acute exacerbation Subjective Subjective Interval history since last seen: Patient states that he is doing well today but remains confused, oriented to person and place only which is his baseline. 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 Objective Last Vital Signs Temp 100.2 F H 08/13/23 06:29 Pulse 106 H 08/13/23 06:29 Resp 18 08/13/23 06:29 BP 126/98 H 08/13/23 06:29 Pulse Ox 94 08/13/23 06:29 Laboratory Results - last 24 hr 08/12/23 08/12/23 08/12/23 08:50 09:28 09:35 WBC 28.61 H* RBC 3.67 L Hgb 10.7 L Hct 31.1 L MCV 85 MCH 29.2 MCHC 34.4 RDW 14.3 H Plt Count 449 H MPV 9.3 Immature Gran % See Differential Neutrophils % 88.0 Band Neutrophils % 6 Lymphocytes % 1.0 Monocytes % 5.0 Eosinophils % 0.0 Basophils % 0.0 Nucleated RBC % 0.0 Absolute Neutrophils 26.89 H Absolute Lymphocytes 0.29 L Absolute Monocytes 1.43 H Absolute Eosinophils 0.00 Absolute Basophils 0.00 RBC Morphology Normal ESR 74 H VBG Lactate 1.3 Sodium 135 L Potassium 2.8 L* Chloride 94 L Carbon Dioxide 28.2 Anion Gap 12.8 H BUN 45 H Creatinine 3.9 H* Est GFR (CKD-EPI 2020) 15.05 Glucose 150 H Calcium 8.1 L Magnesium 1.4 L Total Bilirubin 0.7 Conjugated Bilirubin 0.3 H AST 227 H ALT 60 Alkaline Phosphatase 91 Creatine Kinase 7648 H Troponin I 1777 H* C-Reactive Protein > 25.00 H NT-Pro-B Natriuret Pep 20134 H Total Protein 7.1 Albumin 1.8 L Lipase 10 L Procalcitonin 20.8 Urine Color Yellow Urine Clarity Sl Cloudy Urine pH 6.0 Ur Specific [place] 1.025 Urine Protein >=300 H Urine Ketones Negative Urine Blood Large H Urine Nitrite Negative Urine Bilirubin Moderate H Urine Urobilinogen 0.2 Ur Leukocyte Esterase Trace H Urine RBC 20-50 H Urine WBC 3-5 Ur Epithelial Cells Many Urine Crystals Negative Urine Bacteria Moderate Urine Casts Negative Urine Mucus Trace Ur Culture Indicated? No/Sq. Contamination Urine Glucose Negative Stl C.difficile Tox PCR COVID-19 Source SARS-CoV-2 (PCR) Patient ABO/Rh Antibody Screen 08/12/23 08/12/23 08/12/23 11:50 12:05 12:45 WBC 26.40 H* RBC 3.30 L Hgb 9.4 L Hct 27.8 L MCV 84 MCH 28.5 MCHC 33.8 RDW 14.6 H Plt Count 322 MPV 9.0 Immature Gran % 1.7 Neutrophils % 91.2 Band Neutrophils % Lymphocytes % 1.1 Monocytes % 5.7 Eosinophils % 0.0 Basophils % 0.3 Nucleated RBC % 0.0 Absolute Neutrophils 24.08 H Absolute Lymphocytes 0.29 L Absolute Monocytes 1.50 H Absolute Eosinophils 0.00 Absolute Basophils 0.08 RBC Morphology ESR VBG Lactate Sodium 133 L Potassium 2.8 L* Chloride 95 L Carbon Dioxide 26.6 Anion Gap 11.4 H BUN 46 H Creatinine 3.8 H* Est GFR (CKD-EPI 2020) 15.52 Glucose 163 H Calcium 7.8 L Magnesium Total Bilirubin Conjugated Bilirubin AST ALT Alkaline Phosphatase Creatine Kinase Troponin I 1636 H* C-Reactive Protein NT-Pro-B Natriuret Pep Total Protein Albumin Lipase Procalcitonin Urine Color Urine Clarity Urine pH Ur Specific [place] Urine Protein Urine Ketones Urine Blood Urine Nitrite Urine Bilirubin Urine Urobilinogen Ur Leukocyte Esterase Urine RBC Urine WBC Ur Epithelial Cells Urine Crystals Urine Bacteria Urine Casts Urine Mucus Ur Culture Indicated? Urine Glucose Stl C.difficile Tox PCR COVID-19 Source SARS-CoV-2 (PCR) Patient ABO/Rh A Positive Antibody Screen NEGATIVE 08/12/23 08/12/23 08/13/23 17:15 20:40 05:20 WBC 20.55 H RBC 3.31 L Hgb 9.6 L Hct 27.9 L MCV 84 MCH 29.0 MCHC 34.4 RDW 14.8 H Plt Count 333 MPV 9.6 Immature Gran % Neutrophils % Band Neutrophils % Lymphocytes % Monocytes % Eosinophils % Basophils % Nucleated RBC % Absolute Neutrophils Absolute Lymphocytes Absolute Monocytes Absolute Eosinophils Absolute Basophils RBC Morphology ESR VBG Lactate Sodium 133 L Potassium 2.7 L* Chloride 97 L Carbon Dioxide 24.1 Anion Gap 11.9 H BUN 51 H Creatinine 3.5 H Est GFR (CKD-EPI 2020) 17.13 Glucose 135 H Calcium 7.5 L Magnesium Total Bilirubin Conjugated Bilirubin AST ALT Alkaline Phosphatase Creatine Kinase Troponin I C-Reactive Protein NT-Pro-B Natriuret Pep Total Protein Albumin Lipase Procalcitonin Urine Color Yellow Urine Clarity Turbid Urine pH 6.0 Ur Specific [place] 1.025 Urine Protein >=300 H Urine Ketones Negative Urine Blood Large H Urine Nitrite Negative Urine Bilirubin Small H Urine Urobilinogen 0.2 Ur Leukocyte Esterase Large H Urine RBC Not Applicable Urine WBC >50 H Ur Epithelial Cells Not Applicable Urine Crystals Not Applicable Urine Bacteria Not Applicable Urine Casts Urine Mucus Not Applicable Ur Culture Indicated? Yes Urine Glucose Negative Stl C.difficile Tox PCR Negative COVID-19 Source SARS-CoV-2 (PCR) Patient ABO/Rh Antibody Screen 08/13/23 06:50 WBC RBC Hgb Hct MCV MCH MCHC RDW Plt Count MPV Immature Gran % Neutrophils % Band Neutrophils % Lymphocytes % Monocytes % Eosinophils % Basophils % Nucleated RBC % Absolute Neutrophils Absolute Lymphocytes Absolute Monocytes Absolute Eosinophils Absolute Basophils RBC Morphology ESR VBG Lactate Sodium Potassium Chloride Carbon Dioxide Anion Gap BUN Creatinine Est GFR (CKD-EPI 2020) Glucose Calcium Magnesium Total Bilirubin Conjugated Bilirubin AST ALT Alkaline Phosphatase Creatine Kinase Troponin I C-Reactive Protein NT-Pro-B Natriuret Pep Total Protein Albumin Lipase Procalcitonin Urine Color Urine Clarity Urine pH Ur Specific [place] Urine Protein Urine Ketones Urine Blood Urine Nitrite Urine Bilirubin Urine Urobilinogen Ur Leukocyte Esterase Urine RBC Urine WBC Ur Epithelial Cells Urine Crystals Urine Bacteria Urine Casts Urine Mucus Ur Culture Indicated? Urine Glucose Stl C.difficile Tox PCR COVID-19 Source Nasal/Nares SARS-CoV-2 (PCR) Negative Patient ABO/Rh Antibody Screen Time Spent with Patient Time Spent with Patient: >50 minutes Time was spent: preparing to see the patient(eg.review tests), obtaining and/or reviewing separately otained hiistory, ordering medications,tests, procedures, referring, communicating with other health primary care nurse practitioner, indepentently interpreting results, counseling the patient and care coordination
--- NOTE | 2023-08-13 10:02 | PDOC.CMIN ---
Date of service: 08/13/23 Time of Service: 10:02 Care Management Initial Assmt Initial Assessment REASON FOR HOSPITALIZATION:: septic shock PREVIOUS FUNCTIONAL STATUS/SOCIAL/FAMILY SUPPORTS:: Elliott, who prefers to be called Scotty, lives in [place], [place] with his Marguerite. They have 4 adult children but no grandchildren. 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 He stated he enjoyed the work and got to see a lot of the country. Scotty has home health services for nursing for wound care and also receives Meals on Wheels. CURRENT FUNCTIONAL STATUS:: Scotty was sitting up in a chair when CM met with him. He was pleasant in interaction and agreeable to conversation. He stated that he feels well and denied having any more diarrhea. He hopes not to need to be in the hospital for very long. Per provider, he has some dementia which his also confirmed. It is unclear if he has seen a neurologist or has had a formal diagnosis. Some of Scotty's responses to questions were a bit vague and may not have been accurate. He informed CM that he is able to walk independently with no walker or cane yet he has wounds on both feet requiring dressing changes by home health nurses. CM was unable to reach his to gather aditional information. ADVANCE DIRECTIVES:: On file. Marguerite Miky LUNA Has patient been provided with info about the portal/API?: Yes Did the patient sign up for the portal?: No CODE STATUS:: Full Code INSURANCE COVERAGE / FINANCIAL ISSUES:: [facility] Medicare Replacement CURRENT HOME/COMMUNITY SERVICES/EQUIPMENT:: home health nursing Meals on Wheels PRIMARY CARE PHYSICIAN:: Asif Burr POTENTIAL DISCHARGE NEEDS:: follow up with PCP and plan of care PATIENT/FAMILY EDUCATION NEEDS:: Review of discharge instructions, limitations, follow up plan, discuss Ask Me Three TRANSPORTATION:: to be determined by disposition PLAN:: Ed is currently in the ICU being closely monitored and treated for sepsis. Anticipate he will return home with a resumption of services when medically cleared. If SNF for short term rehab is recommended, Scotty stated he would be agreeable. CM will follow and continue to assess for discharge planning needs. PFSH All Active Problems (Updated 08/12/23 @ 13:55 by Pb Corley MD) NSTEMI (non-ST elevated myocardial infarction) (Acute) Aspiration pneumonia (Acute) Pleural effusion (Acute) Acute respiratory failure with hypoxia (Acute) Acute renal failure (Acute) Septic shock (Acute) Infectious diarrhea (Acute) Rhabdomyolysis (Acute) Parotid mass (Acute) Medical History Intention tremor COPD (chronic obstructive pulmonary disease) Dyslipidemia Metabolic syndrome Warthin's tumor CHF (congestive heart failure) Tobacco use Anemia Diabetic neuropathy Renal insufficiency Depression Gangrene Nodular prostate Hematuria Lower urinary tract symptoms (LUTS) Hypercholesteremia Hypertension Diabetes Surgical History Rotator Cuff Repair LEFT LASER SURGERY LEFT EYE KNEE REPAIR chronic pain and collagenous disruption. Colonoscopy - MAC (~2001) polyps and diverticulosis Colonoscopy - IV Sedation DR.C Sobia GUILLERMO;3 POLYPS Appendectomy AGE 15 Social History Smoking/Tobacco Use Status: Current every day Tobacco Type: pipe Smoking risk assessment performed?: Yes Alcohol Intake: never Drug use: Never Substance use type: does not use Housing: house Do you feel safe at home: Yes Do you feel safe in your relationship?: Yes
--- NOTE | 2023-08-13 10:54 | W.NUTRFU ---
Date of service: 08/13/23 Time of Service: 10:54 Nutrition Note NOTE: consult received re: slow healing wounds Pt is 78yo male admitted with septic shock, infectious diarrhea, rhado, acute renal failure, has hx of DMII with neuropathy and on multiple insulin therapies at home. 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 last A1C was 13.2 07/09/23. glucose managed during admission currently on moderate SS insulin aspart at meals and at 22:00. Albumin 1.8 yesterday, total protein WNL. Ordered for heart healthy and CHO consistent diet - clear liquids only right now. Pt sleeping upon visit today. Will add Boost Breeze clear liquid oral nutrition supplement to provide protein on his current consistency order (9grams each for 27g protein daily). Patient transferring to medsurg unit today per discussion on clinical rounds meeting. Will follow up to check tolerance/acceptance and offer diabetes education Time Spent in Nutritional Counseling and Treatment: 0
--- NOTE | 2023-08-13 11:19 | PHA.REVIEW2 ---
Pharmacy Admission Review Admission Clinical Review Admission Pharmacy Review: NSTEMI (non-ST elevated myocardial infarction) (Acute) Aspiration pneumonia (Acute) Pleural effusion (Acute) Acute respiratory failure with hypoxia (Acute) Acute renal failure (Acute) Septic shock (Acute) Infectious diarrhea (Acute) Rhabdomyolysis (Acute) No Known Drug Allergies Allergy (Unknown, Unverified 08/12/23 09:00) Resuscitation Status Full Code Height 5 ft 6 in Weight 73.6 kg Comments Comments/Follow Ups: Continue to monitor renal function, may need to adjust Zosyn dose if patients renal functions improves. Follow up with provider about patients home meds (tamsulosin and trazodone). Pharmacy Admission Review Renal Dosing Renal Dosing: BUN 51 mg/dL (7-18) H 08/13/23 05:20 Creatinine 3.5 mg/dL (0.70-1.30) H 08/13/23 05:20 Medications needing adjustments: Reviewed (CrCL 18 mL/min. Zosyn dose okay per renal function. BUN increased to 51, SCr slightly down to 3.5.) Anticoagulation Anticoagulation: Hgb 9.6 g/dL (13.5-17.5) L 08/13/23 05:20 Hct 27.9 % (40.0-50.0) L 08/13/23 05:20 Plt Count 333 10^3/uL (130-400) 08/13/23 05:20 Creatinine 3.5 mg/dL (0.70-1.30) H 08/13/23 05:20 DVT Prophylaxis: Reviewed (SCD's ordered, no current medication for prophylaxis) Relevant Labs Relevant Labs: ESR 74 mm/hr (0-20) H 08/12/23 08:50 Sodium 133 mmol/L (136-145) L 08/13/23 05:20 Potassium 3.0 mmol/L (3.5-5.1) L 08/13/23 10:25 Chloride 97 mmol/L (98-107) L 08/13/23 05:20 Magnesium 1.4 mg/dL (1.8-2.4) L 08/12/23 08:50 C-Reactive Protein > 25.00 mg/dL (0.0-0.3) H 08/12/23 08:50 Electrolytes, C-Reactive P, ESR: Reviewed (K was 2.7 this morning repeat labs done now up to 3. Na 133, no new Mg level. ) Cardiac Review Cardiac Review: Troponin I 1636 ng/L (<or=60) H* 08/12/23 11:50 NT-Pro-B Natriuret Pep 43733 pg/mL (<300) H 08/12/23 08:50 BP, HR, EF%: Reviewed (BP 142/82, HR 107, no repeat labs done for troponin or NT-Pro-B) QTc Review QTc: Reviewed (532 08/12/23) IV to PO Switch IV Medications: Reviewed (Zosyn) Home Meds Home Med List reviewed: Reviewed Relevent Home Meds Not ordered & why?: Per progress note, patients at home hypertensives are currently on hold (lisinopril, metoprolol, torsemide). No current order for tamsulosin or trazodone. Will reach out to provider. Current Meds Current Medication Order Review: Reviewed Pharmacy Antibiotic Review Pharmacy Antibiotic Activity: C/S review and Reviewed, no change Comments: Currently on Zosyn. Stool sample was negative, urine cultures pending. WBC down to 20.55 from 26.4. Patient has been febrile all morning. Comments Comments/Follow Ups: Continue to monitor renal function, may need to adjust Zosyn dose if patients renal functions improves. Follow up with provider about patients home meds (tamsulosin and trazodone).
--- NOTE | 2023-08-13 13:55 | PT.INIE ---
PT Notes Visit Reasons: Septic Shock, Acute Renal Failure, Rhabdo a Inpatient Physical Therapy Evaluation Date: 08/13/23 Referring Doctor: Pb Corley MD PT Orders: PT CONSULT: [eval/treat] Precautions: Spoke with SOWMYA Ordonez. Tested negative for c.diff and COVID. Septic shock: Status: Acute Currently fall risk only. Patient Profile/Admitting Diagnosis: Patient is a 78 yo male adm 08/12/23 with septic shock, infectious diarrhea x 4 days, acute renal failure, pleural effusion, aspiration pneumonia, rhabdomyolysis, NSTEMI, acute respiratory failure with hypoxia, HTN, COPD, hypercholesterolemia. Patient was found was found on the floor but uncertain how long he was in his position. PMHX: Medical History Intention tremor COPD (chronic obstructive pulmonary disease) Dyslipidemia Metabolic syndrome Warthin's tumor CHF (congestive heart failure) Tobacco use Anemia Diabetic neuropathy Renal insufficiency Depression Gangrene Nodular prostate Hematuria Lower urinary tract symptoms (LUTS) Hypercholesteremia Hypertension Diabetes Surgical History Rotator Cuff Repair LEFTLASER SURGERY LEFT EYEKNEE REPAIR chronic pain and collagenous disruption.Colonoscopy - MAC (~2001) polyps and diverticulosisColonoscopy - IV Sedation DR.C Sobia GUILLERMO;3 POLYPSAppendectomy AGE 15 Social History/Home Situation: Patient reports he lives in [facility] with his . He reports his home is one level with several steps to enter. Reports he drives and that his assists with cooking and cleaning. Also reports that he is able to walk around his home without an assistive devive. Uncertain of the accuracy of any of this information. Visible scarring on his knees and staff shared that patient may crawl around his home rather than walk. Current Functional Limitations: see above Equipment Owned/DME: unknown Subjective: Patient reports he likes to be called Scotty. While walking he reported bilateral hip pain. Objective: General Observation: Sleeping upon arrival Mental Status: Able to report his name. Thought his was in the hallway (was not). Attempted to place his left sock on his left knee when asked to don his sock Pain: Reports of bilateral hip pain but unable to use VAS Vital Signs: monitored by nursing. No longer on O2 or telemetry at time of this evaluation ROM: Right Upper Extremity: grossly WNL Left Upper Extremity: grossly WNL Right Lower Extremity: grossly WNL Left Lower Extremity: grossly WNL Strength: Right Upper Extremity: [4/5] Left Upper Extremity: [4/5] Right Lower Extremity: [4/5] Left Lower Extremity: [4/5] Sensation: [not assessed. expect bilateral LE neuropathy secondary to h/o toe amputation on right foot and current wound on left MTH Bed Mobility/Transfers: supine to sit with HOB elevated with mod assist x 1, cg/min assist x 1 with cuing. difficulty following cuing. ? secondary to hard of hearing vs mental status. Sit to/from stand min x 1 and mod x 1 with cuing. Gait: Ambulated 22 feet with rolling walker with min/mod assist x 1 with w/c to follow with constant cuing and mod/max assist for walker. Attempting to sit prior to reaching chair. Balance: [] Static Sitting: [cg/min] Dynamic Sitting: cg/min[] Static Standing: [min/mod] Dynamic Standing: min/mod Special Tests: Mobility Limitations Standardized Measure [facility] AM-PAC 6 clicks Basic Mobility Inpatient Short Form: Raw Score: [12] Standardized Score: [] CMS Score: [69%] Informed Consent/Education: Patient instructed in purpose of PT consult and plan of care. Assessment: Patient is a 78 year old male referred to physical therapy services for decreased mobility with his hospital adm 08/12/23 with septic shock, infectious diarrhea x 4 days, acute renal failure, pleural effusion, aspiration pneumonia, rhabdomyolysis, NSTEMI, acute respiratory failure with hypoxia, HTN, COPD, hypercholesterolemia. Patient would benefit from skilled PT services to improve his bed mobility, transfers, gait and ability to care for himself at home to determine if he is safe to return home with his to assist Patient is assessed as a [X] Low 79402 [] Moderate 15374 [] High 49811 complexity based on the following: History: unable to accurately answer questions, DM, [place] Examination: see above Presentation: stable Decision Making: [low] Goals: Goals X1 week 1. Supine-Sit supervision without cuing 2. Sit-Supine supervision without cuing 3. Sit-Stand CGA 4. Stand-Sit CGA with cuing 5. Gait 100 feet with rolling walker with cga only 6. Stairs:up and down 2-3 steps with bilateral rails cg/min assist. 7. Independent with home exercise program Plan of Care/Treatment Plan: 1-2x/day, 7 days/week x 1 week. Plan of care has been reviewed with the LASER PRINTING OPERATOR providing the service under Physical Therapy direction. Initiate Physical Therapy intervention for strengthening, bed mobility, transfers, gait, stairs, balance training, use of assistive device. DISCHARGE RECOMMENDATIONS: May need short term rehab. ? ability to function at home. Will need to assess 's ability to assist. SOWMYA Ordonez reports she spoke with the patient's on the phone. She was not able to report how long the patient had been sitting on the floor. TREATMENT CODE/TIME: [LOW IE x20, TA x 13. Time coded: 13. total treatment time: 33
[2023-08-13] MEDS: LINEZOLID 600 MG/300 ML BAG 300 MG IVPB (14:55)
[2023-08-13] MEDS: HYDROcodone 5/Acetaminophen 325 TAB PO (14:56)
[2023-08-13] MEDS: Acetaminophen 325 MG TAB PO (16:49)
[2023-08-13] MEDS: POTASSIUM CHLORIDE/0.9% NACL 1,000 ML 125 MEQ IV (21:10)
[2023-08-14] MEDS: LINEZOLID 600 MG/300 ML BAG 300 MG IVPB ×2 (00:32→12:13)
[2023-08-14] MEDS: Nystatin 500000 UNITS/5 ML SUSP 5ML CUP PO ×6 (00:46→21:58)
[2023-08-14] MEDS: PIPERACILLIN/TAZO 2.25 GM in Normal Saline 50 ML IVPB ×3 (01:50→17:45)
[2023-08-14 04:21] VITALS: BP 109/70; PULSE 86; TEMP 36.8; O2SAT 94
[2023-08-14] MEDS: Normal Saline Flush 10 ML SYR IVP (06:17)
[2023-08-14] MEDS: POTASSIUM CHLORIDE/0.9% NACL 1,000 ML 125 MEQ IV ×2 (06:20→15:57)
[2023-08-14 06:44] LABS: HCT 27.9 % (40.0-50.0); HGB 9.5 g/dL (13.5-17.5); MCH 28.6 pg (27.0-33.0); MCHC 34.1 % (32.0-36.0); MCV 84 fL (80-95); Platelet Count 334 10^3/uL (130-400); RBC 3.32 10^6/uL (4.36-5.78); RDW-SD 46.1 fL; WBC 18.93 10^3/uL (4.4-10.8)
[2023-08-14 07:11] LABS: Anion Gap 11.1 mmol/L (3-11); BUN 50 mg/dL (7-18); CO2 22.9 mmol/L (21.0-32.0); CREATININE 3.1 mg/dL (0.70-1.30); Calcium 8.1 mg/dL (8.5-10.1); Chloride 98 mmol/L (98-107); Creatine Kinase 967 U/L (39-308); Estimated GFR 19.82 (mL/min/1.73m2); Glucose 160 mg/dL (74-106); Magnesium 2.1 mg/dL (1.8-2.4); Potassium 3.1 mmol/L (3.5-5.1); Sodium 132 mmol/L (136-145)
[2023-08-14] MEDS: Insulin Aspart 300 UNITS/3 ML PEN SC ×4 (08:00→22:03)
[2023-08-14] MEDS: Atorvastatin 40 MG TAB PO (08:01)
--- NOTE | 2023-08-14 08:30 | CMPROGNOTE_ITS ---
Date of service: 08/14/23 Time of Service: 08:30 Care Management Progress Note Progress Note Text Progress Note Text: S/O:Scotty was sitting up in bed when CM met with him. His lunch tray was in front of him but he had hardly touched his food. CM askerd why he was not eating and he replied that he was not hungry. Scotty had his eyes closed throughout the interchange and CM asked if he was tired. He responded no, and stated he closed his eyes because they felt better that way. CM was unable to engage him in conversation. Per nursing, he has been somnolent all morning. CM was able to speak to Marguerite, his , today. She stated that Scotty has been getting more confused and she believes he has early dementia. She also shared that he is often irritable and cranky at home. He was at [facility] last summer and apparently was frequently irrritable there as well. Marguerite informed CM that Scotty does not use any assistive devices for ambulation and does fairly well, despite the partial amputatatio of his right foot and wound on the lefty. Scotty stated he was agreeable to SNF when asked yesterday and Marguerite is also agreeable. She suggested that CM ask Scotty where he would want to go if rehab is indicated; she is not sure if he would want to go back to [facility] or not.Clinically Scotty is doing better, although he has a positive blood culture with gram positive organisms. His vital signs are stable today and he is afebrile. A: Scotty is a 78 year old man admitted on 08/12/23 with septic shock P:Anticipate Scotty will return home with a resumption of services when medically cleared. If SNF for short term rehab is recommended, Scotty stated he would be agreeable. CM will follow and continue to assess for discharge planning needs.
--- NOTE | 2023-08-14 10:06 | PGE_ITS ---
Date of Service Date of service: 08/14/23 Time of Service: 10:10 Assessment and Plan Assessment and plan (1) Septic shock: Status: Acute Assessment and plan: - Patient meets septic shock criteria with initial heart rate greater than 90, white blood cell count greater than 20, presumed source of infection being combination of infectious diarrhea/colitis and aspiration pneumonia, associated infectious encephalopathy, acute kidney injury, type II NSTEMI, and persistent hypotension with mean arterial pressure as low as 45 despite fluid rehydration requiring initiation of IV Levophed -Started on Zosyn in the emergency department, will continue as this will cover infectious diarrhea as well as aspiration pneumonia -Had been on 7mcg of Levophed but has been weaned and discontinued since afternoon 08/12 (2) Gram-positive bacteremia: Status: Acute Assessment and plan: - Blood cultures preliminarily growing gram-positive cocci -Patient was started on linezolid -Follow-up repeat cultures -Will order TTE -Will continue to look for source of infection, may be enlarged left gluteus evens muscle, however given patient's creatinine has still not returned to baseline in the setting of VOLODYMYR on CKD with rhabdomyolysis, cannot order CT with contrast at this time -Recommend continuing to trend creatinine and consider contrast study if kidney function improves and source of infection is not otherwise identified (3) Infectious diarrhea: Status: Acute Assessment and plan: - Presumed source of infection as there was some signs of inflammation on noncontrast CT, patient has had 4 days of intractable diarrhea -C. difficile negative -no further loos bowel movements since admission (4) Acute renal failure: Status: Acute Assessment and plan: - Likely secondary to baseline CKD, in combination with 4 days of intractable diarrhea and poor p.o. intake as well as rhabdomyolysis -Creatinine 3.8 on admission, down to 3.5 AM 08/13, 3.4 AM 08/14 -Status post gentle fluid hydration in the emergency department -Follow-up a.m. BMP (5) Acute respiratory failure with hypoxia: Status: Acute Assessment and plan: - Likely secondary to septic shock as noted above and more specifically possible aspiration event that occurred while patient was down also resulting in rhabdomyolysis and VOLODYMYR -Currently on 1 L nasal cannula, wean as tolerated with goal O2 saturation greater than 92% (6) Pleural effusion: Status: Acute Assessment and plan: - Moderate, noted on chest CT -Patient has persistent hypoxia or get significantly worse will discuss with general surgery for consideration of thoracentesis (7) Aspiration pneumonia: Status: Acute Assessment and plan: - Consolidation noted on noncontrast CT -Likely occurred while patient was bedbound and minimally responsive -On Zosyn as noted above (8) NSTEMI (non-ST elevated myocardial infarction): Status: Acute Assessment and plan: - EKG within normal limits, patient not complaining of chest pain -Elevated troponin up to 1636 likely a type II NSTEMI in the setting of septic shock, severe dehydration, poor clearance due to acute renal failure -Will trend troponin until begins to decline (9) Rhabdomyolysis: Status: Acute Assessment and plan: - CK 706 148, likely secondary to/exacerbated by acute renal failure from dehydration, patient being bedbound and found down -Will monitor CK levels and fluid rehydrate as needed -CK down to ~900 AM 08/14 (10) Hypertension: Assessment and plan: - Holding home antihypertensives while patient is in septic shock (11) Hypercholesteremia: Assessment and plan: - Continue home statin (12) COPD (chronic obstructive pulmonary disease): Assessment and plan: - Without acute exacerbation Subjective Subjective Interval history since last seen: Patient states that he is doing well today but remains confused, oriented to person and place only which is his baseline. 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 Objective Last Vital Signs Temp 98.2 F 08/14/23 04:21 Pulse 86 08/14/23 04:21 Resp 16 08/13/23 19:49 BP 109/70 08/14/23 04:21 Pulse Ox 94 08/14/23 04:21 Laboratory Results - last 24 hr 08/12/23 08/13/23 08/14/23 17:15 10:25 05:42 WBC 18.93 H RBC 3.32 L Hgb 9.5 L Hct 27.9 L MCV 84 MCH 28.6 MCHC 34.1 RDW 15.0 H Plt Count 334 MPV 10.0 Sodium 132 L Potassium 3.0 L 3.1 L Chloride 98 Carbon Dioxide 22.9 Anion Gap 11.1 H BUN 50 H Creatinine 3.1 H Est GFR (CKD-EPI 2020) 19.82 Glucose 160 H Calcium 8.1 L Magnesium 2.1 Creatine Kinase 967 H Urine Color Yellow Urine Clarity Turbid Urine pH 6.0 Ur Specific [place] 1.025 Urine Protein >=300 H Urine Ketones Negative Urine Blood Large H Urine Nitrite Negative Urine Bilirubin Small H Urine Urobilinogen 0.2 Ur Leukocyte Esterase Large H Urine WBC >50 H Ur Culture Indicated? Yes Urine Glucose Negative Time Spent with Patient Time Spent with Patient: >50 minutes Time was spent: preparing to see the patient(eg.review tests), obtaining and/or reviewing separately otained hiistory, ordering medications,tests, procedures, referring, communicating with other health career placement specialist, indepentently interpreting results, counseling the patient and care coordination
[2023-08-14 10:25] VITALS: BP 150/81; PULSE 91; TEMP 37.2; O2SAT 93
[2023-08-14 10:33] LABS: Campylobacter PCR Negative (Negative); Salmonella PCR Negative (Negative); Shiga Toxin PCR Negative (Negative); Shigella/Enteroinvasive Ecoli Negative (Negative)
[2023-08-14] MEDS: Acetaminophen 325 MG TAB PO ×2 (11:45→15:54)
--- NOTE | 2023-08-14 12:44 | PHA.REVIEW2 ---
Pharmacy Admission Review Admission Clinical Review Admission Pharmacy Review: Gram-positive bacteremia (Acute) NSTEMI (non-ST elevated myocardial infarction) (Acute) Aspiration pneumonia (Acute) Pleural effusion (Acute) Acute respiratory failure with hypoxia (Acute) Acute renal failure (Acute) Septic shock (Acute) Infectious diarrhea (Acute) Rhabdomyolysis (Acute) No Known Drug Allergies Allergy (Unknown, Unverified 08/12/23 09:00) Resuscitation Status Full Code Height 5 ft 6 in Weight 74.2 kg Pharmacy Admission Review Renal Dosing Renal Dosing: BUN 50 mg/dL (7-18) H 08/14/23 05:42 Creatinine 3.1 mg/dL (0.70-1.30) H 08/14/23 05:42 Anticoagulation Anticoagulation: Hgb 9.5 g/dL (13.5-17.5) L 08/14/23 05:42 Hct 27.9 % (40.0-50.0) L 08/14/23 05:42 Plt Count 334 10^3/uL (130-400) 08/14/23 05:42 Creatinine 3.1 mg/dL (0.70-1.30) H 08/14/23 05:42 Relevant Labs Relevant Labs: ESR 74 mm/hr (0-20) H 08/12/23 08:50 Sodium 132 mmol/L (136-145) L 08/14/23 05:42 Potassium 3.1 mmol/L (3.5-5.1) L 08/14/23 05:42 Chloride 98 mmol/L (98-107) 08/14/23 05:42 Magnesium 2.1 mg/dL (1.8-2.4) 08/14/23 05:42 C-Reactive Protein > 25.00 mg/dL (0.0-0.3) H 08/12/23 08:50 Cardiac Review Cardiac Review: Troponin I 1636 ng/L (<or=60) H* 08/12/23 11:50 NT-Pro-B Natriuret Pep 49159 pg/mL (<300) H 08/12/23 08:50 SOAP Objective: SCr continuing to slowly decrease, at 3.1 today. Estimated CrCl up to 20 mL/min (from 18 yesterday). Relevant labs as follows: WBC 18.93, Na 132, K 3.1 (slight increase), finger stick glucose 225 at 1213. Blood and urine cultures came back positive for MRSA, repeat blood cultures pending. Assessment: Patients kidney function continues to improve. Patient has been afebrile since yesterday morning and WBC still elevated but trending down. Confirmed to have gram positive (MRSA) bacteremia for which linezolid was added yesterday. Discussed interaction between linezolid and citalopram. Citalopram order was discontinued by provider and informed provider that it can be reinitiated 24 hours after linezolid treatment completed. Plan: Continue to monitor patients kidney function as it is slowly improving. If CrCl is over 20 mL/min tomorrow, can increase Zosyn frequency to every 6 hours.
[2023-08-14 14:18] VITALS: BP 101/63; PULSE 85; RESP 17; TEMP 36.8; O2SAT 95
[2023-08-14 16:46] LABS: BE (Venous) -4 mmol/L (-2-3); HCO3 (Venous) 22 mmol/L (23-28); O2 Sat (Venous) 92 %; TCO2 (Venous) 21 mmol/L (24-29); pCO2 (Venous) 37 mmHg (41-51); pH (Venous) 7.37 (7.31-7.41); pO2 (Venous) 63 mmHg
--- NOTE | 2023-08-14 16:53 | PT.INTREAT ---
Date of service: 08/14/23 Time of Service: 16:38 PT Notes Visit Reasons: Septic Shock, Acute Renal Failure, Rhabdo Inpatient Physical Therapy Treatment Note [facility] Date: 08/14/23 PRECAUTIONS: Fall, standard, activity as tolerated. CONTACT PRECAUTIONS FOR MRSA. SUBJECTIVE: Patient appears very sleepy, has difficulty keeping his eyes open for any length of time. Brief one-word answers. Appears to fall fully back to sleep between engaging. OBJECTIVE: Supine in bed, agreeable to therapy. ? PAIN: patinet denies pain VITALS: monitored by nursing staff Therapeutic Activities ([id number]): Direct one-on-one instruction in dynamic activities to improve functional performance. ? BED MOBILITY/TRANSFERS? Rolling L/R: min assist with max verbal and tactile cueing to maintain engagement. Supine-sit: mod assist of one from flat bed with hand rail, clinician's hand behind lower shoulder to boost up. ? Sit-supine: not assessed? Sit-stand: min assist of 2 via gait belt from elevated bed.? Stand-sit: CGA with max verbal cues to ensure patient lines up safely with intended sitting surface. ? Bed-Chair: CGA with max verbal cues to ensure patient lines up safely with intended sitting surface. ? Chair-bed: not assessed. Provided skilled cues and instruction on performance and technique throughout. ASSESSMENT:? Patient tolerates therapy well, appears significantly more alert and engaged once sitting up in chair. PLAN: Continue global strengthening per plan of care until patient is medically cleared for discharge and obtains safe dishcarge plan. TREATMENT CODE/TIME: 14 minutes beginning at 16:52
[2023-08-14 21:00] VITALS: TEMP 36.6
[2023-08-14 22:09] VITALS: O2SAT 97
[2023-08-14 22:11] VITALS: BP 113/89; PULSE 83
[2023-08-15] VITALS (10 sets, daily range): BP systolic 110–172; BP diastolic 75–92; PULSE 80–99; RESP 16–20; TEMP 34.5–36.9; O2SAT 93–96
[2023-08-15] MEDS: LINEZOLID 600 MG/300 ML BAG 300 MG IVPB ×2 (00:12→12:18)
[2023-08-15] MEDS: Normal Saline Flush 10 ML SYR IVP (00:52)
[2023-08-15] MEDS: PIPERACILLIN/TAZO 2.25 GM in Normal Saline 50 ML IVPB ×2 (02:13→11:10)
[2023-08-15] MEDS: POTASSIUM CHLORIDE/0.9% NACL 1,000 ML 125 MEQ IV ×2 (02:14→09:47)
[2023-08-15] MEDS: Nystatin 500000 UNITS/5 ML SUSP 5ML CUP PO ×5 (05:28→22:18)
[2023-08-15 06:38] LABS: HCT 27.3 % (40.0-50.0); HGB 9.2 g/dL (13.5-17.5); MCH 28.5 pg (27.0-33.0); MCHC 33.7 % (32.0-36.0); MCV 85 fL (80-95); MPV 9.2 fL (8.0-11.0); Platelet Count 311 10^3/uL (130-400); RBC 3.23 10^6/uL (4.36-5.78); RDW 15.2 % (11.8-14.1); RDW-SD 46.7 fL; WBC 18.85 10^3/uL (4.4-10.8)
[2023-08-15 06:56] LABS: Anion Gap 10.8 mmol/L (3-11); BUN 48 mg/dL (7-18); CO2 21.2 mmol/L (21.0-32.0); CREATININE 2.5 mg/dL (0.70-1.30); Calcium 8.2 mg/dL (8.5-10.1); Chloride 99 mmol/L (98-107); Estimated GFR 25.65 (mL/min/1.73m2); Glucose 196 mg/dL (74-106); Potassium 3.6 mmol/L (3.5-5.1); Sodium 131 mmol/L (136-145)
[2023-08-15] MEDS: Insulin Aspart 300 UNITS/3 ML PEN SC ×4 (08:22→22:19)
[2023-08-15] MEDS: Atorvastatin 40 MG TAB PO (08:22)
[2023-08-15 09:17] LABS: Lab Add On Test DONE
[2023-08-15 09:32] LABS: C-Reactive Protein 23.55 mg/dL (0.0-0.3); Creatine Kinase 293 U/L (39-308)
[2023-08-15 09:48] LABS: Procalcitonin 4.9 ng/mL
--- NOTE | 2023-08-15 10:29 | DI.RAD_ITS ---
Exam(s) XR HIP RT COMPLETE AP PELVIS EXAM: XR HIP RT COMPLETE AP PELVIS CLINICAL HISTORY: R hip pain. TECHNIQUE: 2D digital imaging was performed of the right hip. Two images were obtained. AP pelvis a nd lateral right hip views were obtained. COMPARISON: CT CT CHEST/ABD/PEL WO from 08/12/2023 FINDINGS: BONES: No acute fracture is present. No bony destructive lesion is seen. JOINTS: No dislocation present. There are mild degenerative changes seen in the right hip and left hi p. There are degenerative changes seen in the lower lumbar spine in the sacroiliac joints. SOFT TISSUE: There is atherosclerosis. There is a right iliac stent. IMPRESSION: Degenerative changes seen of the hips bilaterally. DATA REPOSITORY: RADIATION DOSE DELIVERED:
--- NOTE | 2023-08-15 11:26 | PT.INTREAT ---
PT Notes Visit Reasons: Septic Shock, Acute Renal Failure, Rhabdo Inpatient Physical Therapy Treatment Note [facility] Date: 08/15/23 PRECAUTIONS: Fall. Standard. Activity as tolerated. On contact precautions for MRSA. SUBJECTIVE: Agreeable to getting out of bed to get moving. Denies chest pain, headache, and lightheadedness. OBJECTIVE: Resting in bed. In NAD. ? PAIN: Denies VITALS: Closely monitored by nrsing staff BED MOBILITY/TRANSFERS: Minimal cueing provided for use of B hands as needed for support, movement sequence, Ad management, and and posture to reduce fall risk and minimize pain report. ? Rolling L/R: stand by assist Supine-sit: minimal assist ? Sit-stand: contact guard assist with FWW ? Stand-sit: contact guard assist with FWW ? Bed-Chair: contact guard assist with FWW ? Chair-bed: not assessed. Gait: Facilitated safe and correct performance of level surface ambulation using FWW covering a distance of 100 feet + 100 feet requring minimal verbal cueing for ensuring safe distance from FWW, posture, and directional changes to reduce fall risk. Denied headache, chest pain, and lightheadedness throughout session. THERA EX: Seated marches x 10 LAQ x 10 Chest expansion exercises x 10 Clam shell exercises x 10 ASSESSMENT:? Patient demonstrating improving activty tolerance and independence level compared to day of evaluation in the ICU. Pain level much more controlled. orthopedic shoes in process with DME provider. Ulcers in the L plantar area covered with dressing. Requires use of FWW to maximize independence, increase stability, and reduce fall risk. PLAN: Progress mobility level as tolerted per PT POC. TREATMENT CODE/TIME: 98549 x 25 minutes for 2 units, 16092 x 18 minutes for 1 unit beginning at 11:26 AM.
--- NOTE | 2023-08-15 12:55 | CMPROGNOTE_ITS ---
Date of service: 08/15/23 Time of Service: 12:55 Care Management Progress Note Progress Note Text Progress Note Text: S/O: CM witnessed Scotty walking in the halls with PT twice today. Per MD, there is concern for an infected stent, which may be the source of his bacteremia, and may require transfer for further intervention. He will likely require six weeks of IV antibiotics, which he may have to transition to SWB to complete. CM will continue to follow. A: Elliott is a 78 year old male admitted to [facility] on 08/12/23 for septic shock, acute renal failure, rhabdo. P: Scotty is currently in the ICU being closely monitored and treated for sepsis. Anticipate he will return home with a resumption of services when medically cleared. If SNF for short term rehab is recommended, Scotty stated he would be agreeable. CM will follow and continue to assess for discharge planning needs.
--- NOTE | 2023-08-15 14:17 | PT.INTREAT ---
Date of service: 08/15/23 Time of Service: 13:53 PT Notes Visit Reasons: Septic Shock, Acute Renal Failure, Rhabdo Inpatient Physical Therapy Treatment Note [facility] Date: 08/15/23 PRECAUTIONS: Fall, standard, activity as tolerated. CONTACT PRECAUTIONS. SUBJECTIVE: Patient reports not eating much lunch, reports little to no appetite. OBJECTIVE: Sitting up in bedside chair, IV in place RUE. Agreeable to therapy. ? PAIN: none reported initially, reports pain in back side upon seated rest. Unclear whether genuine or facetious. RN notified. VITALS: monitored by nursing staff. ? ? ? BED MOBILITY/TRANSFERS? Rolling L/R: not assessed Supine-sit: not assessed ? Sit-supine: not assessed ? Sit-stand: SBA ? Stand-sit: SBA ? Bed-Chair: SBA ? Chair-bed: SBA ? Therapeutic Exercises (44672i3): Direct one-on-one instruction in therapeutic exercises to develop strength, endurance, range of motion and flexibility. Ambulation ? Assistive Device: FWW? Weight bearing: WBAT Assist: SBA, assist managing IV pole ? Distance:? 75 feet, seated rest, 75 feet. ? Deviation: Slightly kyphotic posture, reduced step length, adequate step height. No c/o pain with weight bearing, no dyspnea.? Provided skilled instruction in proper exercise performance Provided skilled manual cues to facilitate proper muscle recruitment and/or form. ASSESSMENT:? Patient tolerates therapy well, is resting comfortably in bedside chair with MARIAELENA alarm active and call button in easy reach at end of treatment session. PLAN: continue global strengthening per plan of care until patient is medically cleared for discharge and obtains safe discharge plan. TREATMENT CODE/TIME: 22 minutes beginning at 13:53
[2023-08-15] MEDS: HYDROcodone 5/Acetaminophen 325 TAB PO (15:51)
[2023-08-15] MEDS: CEFEPIME 1 GM in Normal Saline 50 ML IVPB (17:15)
[2023-08-15] MEDS: VANCOMYCIN/WATER (PEG) 1.75 GM/350 ML BAG IVPB (18:31)
--- NOTE | 2023-08-15 18:48 | W.PM.PROGNOT ---
Date of Service Date of service: 08/15/23 Time of Service: 18:49 Assessment and Plan Assessment and plan (1) Septic shock: Status: Resolved Assessment and plan: Due to MRSA bacteremia. Repeat blood cultures on 08/14 still positive. Repeat blood cultures. No longer on vasopressors and transferred out of the ICU. Source: ?pneumonia. Additionally, need to consider seeding of the iliac artery stent, which could be seeded at this time. For this reason, the patient is being transferred to [facility] with bed pending for tomorrow. Abx were adjusted to vancomycin/cefepime. (2) MRSA bacteremia: Status: Acute Assessment and plan: As above (3) Aspiration pneumonia: Status: Acute Assessment and plan: Abx changed to vancomycin/cefepime. Obtain a speech therapy consult. (4) S/P insertion of iliac artery stent: Assessment and plan: As above (5) Acute renal failure: Status: Acute Assessment and plan: VOLODYMYR on CKD, improving. In setting of septic shock, rhabdomyolysis. Rhabdomyolysis has resolved. Cr is improving. Continue treatment of infection. Continue IVF. (6) Acute respiratory failure with hypoxia: Status: Resolved Assessment and plan: ?due to aspiration pneumonitis. Resolved. On RA today. (7) Pleural effusion: Status: Acute Assessment and plan: Concern for empyema. I do think a thoracenthesis is worth a discussion with general surgery. (8) NSTEMI (non-ST elevated myocardial infarction): Status: Acute Assessment and plan: In setting of known CAD, septic shock, hypoxic respiratory failure. Does have evidence of wall motion abnormalities on echo, suggesting possible true ACS. Resume home aspirin. Continue statin. (9) Rhabdomyolysis: Status: Resolved Assessment and plan: CPK normalized. Was on a statin, which is still on board. Consider d/c'ing. (10) Hypertension: Assessment and plan: Continue to hold home lisinopril. Resume metoprolol. (11) Hypercholesteremia: Assessment and plan: As above On a statin, but consider d/c'ing given rhabdomyolysis on this admission. (12) COPD (chronic obstructive pulmonary disease): Assessment and plan: Not in acute exacerbation at this time. (13) Infectious diarrhea: Status: Ruled-out Assessment and plan: Given that the organism is MRSA, I doubt that diarrhea is the source. It could be a symptom of septic shock, however. C.diff negative. If diarrhea recurs, would obtain stool for bacterial pathogens. Write for probiotics. (14) PAD (peripheral artery disease): Status: Chronic Assessment and plan: Resume aspirin. Continue statin. Read discussion re possibility of R iliac stent being seeded and need for transfer for [facility] vascular evaluation. (15) Thrush: Status: Acute Assessment and plan: oral thrush Continue nystastin swish and spit (16) DVT prophylaxis: Status: Acute Assessment and plan: SC heparin (17) Discharge planning issues: Status: Acute Assessment and plan: Full code C/s palliative care PT, Speech consulted. Anticipate transfer to [facility] tomorrow (Accepting Dr Rasmussen). Subjective Subjective Interval history since last seen: Mr Miky reported R hip pain to nursing but denied it to me. He denies dizziness, CP, SOB, n/v. I discussed his case with [facility] vascular surgery who, given bacteremia and presence of vascular stents, feel that the patient should be transferred to [facility]. The patient was accepted in transfer with bed pending for tomorrow afternoon under the hospitalist medicine service at [facility] (Accepting MD Dr Rasmussen). Exam Narrative Exam Narrative: General: a very pleasant edlerly male who is A&Ox1.5 (knows he is in the hospital, does not know which one), sitting up comfortably in a chair HEENT: EOMI, dry MM, white film on tongue c/w thrush Heart: RRR, ?quiet CHANA Lungs: CTAB Abdomen: soft, nontender, nondistended Extremities: R foot is s/p transmetatarsal amputation, stump well healed, foot cool to touch, no pedal pulse; L foot with two dressings in place, all 5 toes present, trace pedal pulse, foot warmer. Objective Last Vital Signs Temp 35.5 C L 08/15/23 15:59 Pulse 93 H 08/15/23 15:59 Resp 20 08/15/23 15:59 BP 165/91 H 08/15/23 15:59 Pulse Ox 96 08/15/23 15:59 Laboratory Results - last 24 hr 08/15/23 05:40 WBC 18.85 H RBC 3.23 L Hgb 9.2 L Hct 27.3 L MCV 85 MCH 28.5 MCHC 33.7 RDW 15.2 H Plt Count 311 MPV 9.2 Sodium 131 L Potassium 3.6 Chloride 99 Carbon Dioxide 21.2 Anion Gap 10.8 BUN 48 H Creatinine 2.5 H Est GFR (CKD-EPI 2020) 25.65 Glucose 196 H Calcium 8.2 L Creatine Kinase 293 C-Reactive Protein 23.55 H Procalcitonin 4.9 Add-On Test Request DONE Objective Narrative Objective Narrative: XR R hip; BONES: No acute fracture is present. No bony destructive lesion is seen. JOINTS: No dislocation present. There are mild degenerative changes seen in the right hip and left hip. There are degenerative changes seen in the lower lumbar spine in the sacroiliac joints. SOFT TISSUE: There is atherosclerosis. There is a right iliac stent. Time Spent with Patient Time Spent with Patient: 35-49 minutes Time was spent: preparing to see the patient(eg.review tests), obtaining and/or reviewing separately otained hiistory, ordering medications,tests, procedures, referring, communicating with other health district manager primary care sales, indepentently interpreting results, counseling the patient and care coordination
--- NOTE | 2023-08-15 20:08 | DSE_ITS ---
Date of service: 08/15/23 Time of Service: 20:08 DS: Diagnosis Discharge Diagnosis (1) Septic shock: Status: Resolved (2) MRSA bacteremia: Status: Acute (3) Aspiration pneumonia: Status: Acute (4) S/P insertion of iliac artery stent: (5) Acute renal failure: Status: Acute (6) Acute respiratory failure with hypoxia: Status: Resolved (7) Pleural effusion: Status: Acute (8) NSTEMI (non-ST elevated myocardial infarction): Status: Acute (9) Rhabdomyolysis: Status: Resolved (10) Hypertension: (11) Hypercholesteremia: (12) COPD (chronic obstructive pulmonary disease): (13) Infectious diarrhea: Status: Ruled-out (14) PAD (peripheral artery disease): Status: Chronic (15) Thrush: Status: Acute (16) IDDM (insulin dependent diabetes mellitus): Status: Chronic (17) Dementia: Status: Chronic (18) HFrEF (heart failure with reduced ejection fraction): Status: Acute (19) Hypokalemia: Status: Acute (20) Hypomagnesemia: Status: Acute (21) Hyponatremia: Status: Acute (22) Toxic metabolic encephalopathy: Status: Resolved Discharge Plan Disposition Patient Disposition: Transfer-Acute Inpatient Care Specific Acute In Facility: [facility] Condition: Serious Discharge Details Reason For Visit: Septic Shock, Acute Renal Failure, Rhabdo Admit Date/Time: 08/12/23 13:36 Admit Provider: Pb Corley Attending Provider: Pb Corley Primary Care Provider: Asif Burr [facility] Course Hospital Course: Mr Bolaños is a 78 year old male with PMHx of CAD s/p CABG, PAD s/p stent to R iliac A, IDDM, HTN, Hyperlipidemia, CKD 3 and baseline Cr of 1.5, who was admitted to [facility] ICU under the hospitalist service on 08/12/23 for septic shock due to MRSA bacteremia. Potential source was thought to be a RLL pneumonia with evidence of a pleural effusion. The patient did also have diarrhea at home and was found to be negative for C. diff. The patient had acute hypoxic respiratory failure requiring 2-3 L of O2 by NC, an elevated high sensitivity troponin I of 1777 (thought to be due to a type 2 NSTEMI) w/ EKGs showing an old LBBB, VOLODYMYR on CKD with Cr of 3.9, rhabdomyolysis with CPK of 7648. The patient was treated with IVF, vasopressors, empiric zosyn with addition of linezolid when blood cultures came back positive for GPCs (now known to be MRSA). With this treatment, the patient was able to get off of vasopressors on the afternoon of admission. He was transferred out of the ICU on 08/13/23. The patient's blood cultures were repeated on 08/14/23 and remain positive. The patient's antbiotics were changed to vancomycin/cefepime. Sources of persistent bacteremia could be possible empyema (general surgery consulted for a thoracenthesis but did not have a chance to perform it yet prior to transfer) or, given the fact that the patient had vascular stenting of R iliac artery at [facility] in 10/2022, seeding of the stent. The case was discussed with [facility] vascular surgery, who agreed that this would need to be investigated. The patient is not able to consent to transfer, but his does consent. Her name is Marguerite Bolaños and her phone number is [phone]. As of today, the patient's WBC has come down from 28 on admission to 18 (it was also 18 yesterday), his creatinine is down to 2.5, his CPK is 293, his CRP is 23.55 and procalcitonin is 4.9. His troponin stopped being trended after it was documented to be decreasing. His echo does show evidence of wall motion abnormalities and his LVEF is 34%. While no obvious vegetations were seen on this transthoracic echocardiogram, he does have moderate mitral regurgitation and moderate tricuspid regurgitation. He might benefit from an evaluation by cardiology for the question of a true type 1 NSTEMI vs type 2 in the setting of sepsis as well as for a possible TRACY. The patient did report pain in the R hip. His exam is not c/w a septic joint and there was no pain at the time of my exam. His R hip XR today showed chronic degenerative changes and evidence of the R iliac stent. Of note, the patient was noted to have an enlarged L gluteus evens muscle without evidence of abscess by a noncontrast CT. The patient has no symptoms in the L gluteus evens region; however, this could be investigated further on imaging as well as his creatinine improves. The patient was accepted in transfer to [facility] hospitalist medicine with vascular surgery consulting. Accepting provider is Dr Rasmussen. We appreciate the help of the [facility] clinical team and wish the patient well! Care for patient as well as completion of his discharge summary on day of discharge took 80 minutes. Please, look at MAR for the list of the patient's medications. The list of medications below reflects the patient's outpatient prescriptions. Home Meds and New Rx's Prescriptions: No Action tamsulosin [Flomax] 0.4 mg capsule 0.8 mg PO DAILY lisinopril 10 mg tablet 10 mg PO DAILY trazodone 100 mg tablet 100 mg PO DAILY insulin glargine [Lantus Solostar U-100 Insulin] 100 UNIT/1 ML insulin pen 40 units SQ HS Qty: 1 Hold Instructions: Pt Stopped/Never Started (DME) blood-glucose meter 1 EACH misc 1 ea Miscellaneous ONCE Qty: 1 Rx Instructions: ONE TOUCH ULTRA MINI DIAGNOSIS CODE 250.02 (DME) Blood Glucose Test 1 EACH strip 1 ea Miscellaneous BID Qty: 200 Rx Instructions: FOR ONE TOUCH ULTRA MINI METER. Pt uses insulin.DIAGNOSIS CODE 250.02 (DME) lancets 1 EACH misc 1 ea Miscellaneous BID Qty: 200 Rx Instructions: FOR ONE TOUCH ULTRA MINI METER. USES INSULIN. DIAGNOSIS CODE 250.02 Levemir FlexTouch U100 Insulin 100 unit/mL (3 mL) insulin pen 100 unit SC DAILY Hold Instructions: Pt Stopped/Never Started (DME) BD Insulin Syringe (half unit) 0.3 mL 31 gauge x 5/16 syringe See Rx Instructions .ROUTE .MEDSUPPLY Qty: 100 Rx Instructions: As directed insulin lispro [Humalog KwikPen Insulin] 100 unit/mL insulin pen 15 unit SC TID Hold Instructions: Pt Stopped/Never Started Rx Instructions: 2-3 times daily 15 units small meals 20 units large meals atorvastatin 40 mg tablet 40 mg PO DAILY metoprolol succinate 25 mg tablet extended release 24 hr 12.5 mg PO DAILY citalopram 10 mg tablet 10 mg PO DAILY Januvia 100 mg tablet 100 mg PO DAILY torsemide 10 mg tablet 20 mg PO DAILY insulin aspart U-100 [Novolog FlexPen U-100 Insulin] 100 unit/mL (3 mL) insulin pen 20 unit SUBCUT DAILY Hold Instructions: Pt Stopped/Never Started Patient Comments: INJECT 20 UNITS SUBCUTANEOUSLY ONCE DAILY BEFORE THE BIGGEST MEAL OF THE DAY aspirin [Adult Aspirin Regimen] 81 mg tablet,delayed release (DR/EC) 81 mg PO DAILY Qty: 30 0RF Discharge Instructions Referrals: Asif Burr [Primary Care Provider] - Activity:: Activity as Tolerated Equipment/Supplies:: No Equipment Needed Diet:: consistent carb heart healthy Discharge Orders Discharge Orders: Discharge Order (Routine); Ordered 08/15/23 Ordered By: Margi Condon DS: Summary Time Spent with Patient providing and/or coordinating discharge services: Greater than 30 minutes Status at Discharge Functional status at discharge: uses cane/walker Overall status at discharge: patient is not back to baseline Mental Status: mental status grossly normal Speech and Movement: speech and movement normal Mood: congruent mood Affect: normal affect Exam Narrative Exam Narrative: General: a very pleasant edlerly male who is A&Ox1.5 (knows he is in the hospital, does not know which one), sitting up comfortably in a chair HEENT: EOMI, dry MM, white film on tongue c/w thrush Heart: RRR, ?quiet CHANA Lungs: CTAB Abdomen: soft, nontender, nondistended Extremities: R foot is s/p transmetatarsal amputation, stump well healed, foot cool to touch, no pedal pulse; L foot with two dressings in place, all 5 toes present, trace pedal pulse, foot warmer. Psych Mental Status: mental status grossly normal Speech and Movement: speech and movement normal Mood: congruent mood Affect: normal affect DS: Data Vitals/I&O Vitals and I&O: Vital Signs Temperature 35.5 C L 08/15/23 15:59 Temperature Source Tympanic 08/15/23 15:59 Pulse 93 H 08/15/23 15:59 Pulse Rhythm Regular 08/15/23 17:21 Pulse 107 H 08/13/23 09:01 Respiratory Rate 20 08/15/23 15:59 Respiratory Effort Normal, Non-Labored 08/15/23 17:21 Respiratory Depth Normal 08/15/23 17:21 Respiratory Pattern Normal 08/15/23 17:21 Blood Pressure 165/91 H 08/15/23 15:59 Blood Pressure Mean 107 08/15/23 08:14 Blood Pressure Position Supine 08/13/23 03:45 Pulse Oximetry 96 08/15/23 15:59 Respiratory End-tidal CO2 25 08/12/23 15:26 Oxygen Delivery Method Room Air 08/15/23 15:59 Oxygen Flow Rate 0 08/15/23 15:59 Pain Level 0 08/15/23 15:59 Intake & Output 08/14/23 08/15/23 08/15/23 23:59 11:59 23:59 Intake Total 2600 / 4215.833 1293.75 / 1773.75 480 / 1773.75 Output Total 400 / 720 500 / 500 Balance 2200 / 3495.833 793.75 / 1273.75 480 / 1273.75 Weight 76 kg Intake: IV 2350 / 3565.833 1293.75 / 1653.75 360 / 1653.75 Oral 250 / 650 120 / 120 Output: Urine 400 / 720 500 / 500 Other: Urine Color Yellow Yellow Urine Appearance Cloudy Clear Clear Comment Drainage Bag emptied. bladder scanned was 389 and straight cath for 200. pt also voided in brief. Stool Occult Blood Negative Stool Size Small Small Small Stool Characteristics Soft Soft Liquid Liquid Brown Black Voiding Methods Incontinent Data Completed and Pending Completed studies during hospitalization [Text1]: CT chest/abdomen/pelvis w/o contrast 08/12/23: 1. Moderate size right pleural effusion and right basilar infiltrate which may represent atelectasis or pneumonia. Possible tiny left pleural effusion. 2. Question of thickening of the wall of the rectum. Inflammatory infectious process. Neoplasm cannot be excluded. Please correlate with physical exam. 3. Colonic diverticulosis without evidence of acute diverticulitis. 4. Enlarged prostate gland. Mild diffuse thickening of the wall of the urinary bladder. This may be due to chronic bladder outlet obstruction, cystitis or possible neoplasm. Follow-up as clinically appropriate. 5. Enlarged left gluteus evens muscle. This is incompletely imaged on the current examination. Please correlate with physical exam. The finding is nonspecific. Intramuscular mass, infection or trauma should be considered. 6. Cholelithiasis without evidence of biliary ductal dilatation. XR R hip 08/15/23: Degenerative changes seen of the hips bilaterally. Echo 08/14/23: LV is mildly dilated. LVEF is 34%. There are segmental wall motion abnormalities. RV is not well visualized. RV systolic function is moderately decreased. There is mild to moderate mitral regurgitation. There is moderate tricuspid regurgitation. Labs on day of discharge: Labs from last 24 hours 08/15/23 05:40 WBC 18.85 H RBC 3.23 L Hgb 9.2 L Hct 27.3 L MCV 85 MCH 28.5 MCHC 33.7 RDW 15.2 H Plt Count 311 MPV 9.2 Sodium 131 L Potassium 3.6 Chloride 99 Carbon Dioxide 21.2 Anion Gap 10.8 BUN 48 H Creatinine 2.5 H Est GFR (CKD-EPI 2020) 25.65 Glucose 196 H Calcium 8.2 L Creatine Kinase 293 C-Reactive Protein 23.55 H Procalcitonin 4.9 Add-On Test Request DONE Preliminary micro results at discharge 08/12/23 17:15 Urine Culture - Preliminary Urine - Reflex from Ua Staph aureus, MRSA 08/14/23 08:10 Blood Culture - Preliminary Blood Gram Positive Cocci 08/14/23 08:40 Blood Culture - Preliminary Blood Gram Positive Cocci 08/12/23 09:21 Blood Culture - Preliminary Blood Staph aureus, MRSA PFSH All Active Problems (Updated 08/15/23 @ 20:19 by Margi Condon MD) Hyponatremia (Acute) Hypomagnesemia (Acute) Hypokalemia (Acute) HFrEF (heart failure with reduced ejection fraction) (Acute) Dementia (Chronic) IDDM (insulin dependent diabetes mellitus) (Chronic) Thrush (Acute) Discharge planning issues (Acute) DVT prophylaxis (Acute) PAD (peripheral artery disease) (Chronic) CAD (coronary artery disease) (Chronic) MRSA bacteremia (Acute) Gram-positive bacteremia (Acute) NSTEMI (non-ST elevated myocardial infarction) (Acute) Aspiration pneumonia (Acute) Pleural effusion (Acute) Acute renal failure (Acute) Parotid mass (Acute) Medical History (Updated 08/15/23 @ 20:19 by Margi oCndon MD) Intention tremor COPD (chronic obstructive pulmonary disease) Dyslipidemia Metabolic syndrome Warthin's tumor CHF (congestive heart failure) Tobacco use Anemia Diabetic neuropathy Renal insufficiency Depression Gangrene Nodular prostate Hematuria Lower urinary tract symptoms (LUTS) Hypercholesteremia Hypertension Diabetes Surgical History (Updated 08/15/23 @ 18:56 by Margi Condon MD) History of transmetatarsal amputation of right foot S/P CABG (coronary artery bypass graft) S/P insertion of iliac artery stent Rotator Cuff Repair LEFT LASER SURGERY LEFT EYE KNEE REPAIR chronic pain and collagenous disruption. Colonoscopy - MAC (~2001) polyps and diverticulosis Colonoscopy - IV Sedation DR.C Sobia GUILLERMO;3 POLYPS Appendectomy AGE 15 Social History Smoking/Tobacco Use Status: Current every day Tobacco Type: pipe Smoking risk assessment performed?: Yes Alcohol Intake: never Drug use: Never Substance use type: does not use Housing: house Do you feel safe at home: Yes Do you feel safe in your relationship?: Yes Time Spent with Patient Time Spent with Patient: 70-84 minutes4 Time was spent: preparing to see the patient(eg.review tests), obtaining and/or reviewing separately otained hiistory, ordering medications,tests, procedures, referring, communicating with other health long term care phlebotomist, indepentently interpreting results, counseling the patient and care coordination
[2023-08-15] MEDS: Heparin 5,000 UNITS/ML VIAL 5000 UNITS SC (20:16)
--- NOTE | 2023-08-15 23:43 | NUR.NOTE ---
Nursing Note: Patient accepted to [facility], EMS transport arrived and loaded patient to stretcher. Patient had no complaints of pain or shortness of breath, breathing freely on room air maintaining oxygen saturations >90%. Patient left with infusion of [id number] K @ 125mL/hr. Report called to SOWMYA Zaragoza on L1WD @ [facility].
== END 2023-08-15 23:20 | disposition short-term general hospital (02) | DRG 871 ==
LOC: ER 15:07 → ICU 15:33 → MS 08-15 09:08
PROVIDERS: Family Medicine; Internal Medicine; Admitting Provider Family Medicine; Emergency Provider Physician Assistant; PCP Family Medicine; Visit Provider Family Medicine
DX: A41.02 Sepsis due to Methicillin resistant Staphylococcus aureus (principal); G92.8 Other toxic encephalopathy; R65.21 Severe sepsis with septic shock; J96.01 Acute respiratory failure with hypoxia; J69.0 Pneumonitis due to inhalation of food and vomit; I21.4 Non-ST elevation (NSTEMI) myocardial infarction; N17.9 Acute kidney failure, unspecified; A09 Infectious gastroenteritis and colitis, unspecified; M62.82 Rhabdomyolysis; B37.0 Candidal stomatitis; I50.20 Unspecified systolic (congestive) heart failure; E87.1 Hypo-osmolality and hyponatremia; I13.0 Hypertensive heart and chronic kidney disease with heart failure and stage 1 through stage 4 chronic kidney disease, or unspecified chronic kidney disease; J91.8 Pleural effusion in other conditions classified elsewhere; A41.9 Sepsis, unspecified organism; J44.9 Chronic obstructive pulmonary disease, unspecified; E78.00 Pure hypercholesterolemia, unspecified; B95.62 Methicillin resistant Staphylococcus aureus infection as the cause of diseases classified elsewhere; Z95.828 Presence of other vascular implants and grafts; I73.9 Peripheral vascular disease, unspecified; F03.90 Unspecified dementia, unspecified severity, without behavioral disturbance, psychotic disturbance, mood disturbance, and anxiety; E87.6 Hypokalemia; E83.42 Hypomagnesemia; N18.9 Chronic kidney disease, unspecified; E11.22 Type 2 diabetes mellitus with diabetic chronic kidney disease; E11.40 Type 2 diabetes mellitus with diabetic neuropathy, unspecified; D64.9 Anemia, unspecified; G25.2 Other specified forms of tremor; F32.A Depression, unspecified; K11.8 Other diseases of salivary glands; F17.290 Nicotine dependence, other tobacco product, uncomplicated; Z79.4 Long term (current) use of insulin; M25.551 Pain in right hip; I08.1 Rheumatic disorders of both mitral and tricuspid valves
CPT/HCPCS: 00123; 36410; 36415; 51702; 71250; 80048; 80053; 80076; 82550; 82805; 83690; 84145; 85027; 85652; 86850; 86900; 86901; 87040; 87077; 87329; 87493; 87505; 87635; 93005; 96361; 96365; 96366; 96367; 96375; 97110; 97161; 97530; 99291; 73502; 74176; 81003; 81015; 83605; 83630; 83735; 83880; 84132; 84484; 85025; 86140; 87086; 87177; 87186; 93010; 93306; 94667; 99223; 99233; 99239; J0131; J1644; J2020; J2543; J3480

== ENCOUNTER 2023-09-10 15:43 | Inpatient (IN) | payer OTHER, SELFPAY ==
[2023-09-10 15:13] VITALS: BP 116/65; PULSE 82; RESP 18; TEMP 34; O2SAT 90
--- NOTE | 2023-09-10 16:52 | HPE_ITS ---
Date of service: 09/10/23 Time of Service: 16:52 Assessment and Plan Assessment and plan (1) HFrEF (heart failure with reduced ejection fraction): Status: Acute (2) Dementia: Status: Chronic (3) IDDM (insulin dependent diabetes mellitus): Status: Chronic (4) PAD (peripheral artery disease): Status: Chronic (5) CAD (coronary artery disease): Status: Chronic (6) MRSA bacteremia: Status: Acute (7) Renal failure: Status: Chronic (8) Colitis: Status: Acute (9) Hospice care patient: Status: Acute Assessment and plan: Scotty is a 78 year old man who was recently at [facility] for MRSA bacteremia (BC cleared 08/25/23), concern for lumbar spine discitis/osteomyelitis and abscess, septic shock (resolved after [facility] admission), right-sided pleural effusion s/p thoracentesis (1.1 L output), HFrEF (LVEF 34%), mild to moderate mitral regurgitation (new), moderate tricuspid regurgitation (from mild previously), coronary artery disease, s/p CABG, PAD s/p iliac stent placement, s/p right transmetatarsal amputation, hypertension, hyperlipidemia, diabetes, renal fail ure, colitis of unclear etiology (infectious causes ruled out). He was discharged home from the [facility] and admitted to hospice on 09/09/2023. He is on hospice for renal failure, his most recent creatinine was 4.29. There was discussion about possibly placing him on dialysis while at [facility] but he and his declined. The plan was for him to receive end-of-life care at home with the support of hospice services. His life expectancy was measured by [facility] to be short 2 weeks. He was restless and trying to get out of bed at home and fell out of bed this morning. His does not feel she can take care of him at home. He is admitted for hospice respite. He will likely need placement at SNF. All of his regular medications have been discontinued at the [facility]. He will have medications for comfort. He has been drinking well but his had a decreased appetite. He is admitted to hospice respite today and will discharge on 09/15/23. History of Present Illness Narrative: Scotty is a 78 year old man with multiple comorbidities who was recently admitted to hospice for renal failure. Prior to his admission to hospice, he had a complicated course at [facility], transferred to the [facility] [address] on 08/29/23 and was discharged home on 09/09/24. He was noted to have a slow decline and his life expectancy was measured in short weeks by that team. He is admitted to hospice respite today due to his having difficulty caring for him at home. According to the notes, he was bedbound and rarely expressed a desire to get OOB at the [facility] [address]. However, at home he was restless, frequently trying to get OOB and fell out of bed this morning. He may need placement. Staff report that since he was admitted to [facility] for respite, he has been sleeping. He awakens easily to verbal stimuli. He has not been agitated. At the time of my visit, he was awake in bed, he was oriented to self and aware that he is at the hospital, however, he thought he was at [facility]. He did not know the month, year or season. He denies pain. Review of Systems Narrative: per hpi PFSH All Active Problems (Updated 09/11/23 @ 08:39 by Linda Mathews NP) Colitis (Acute) Renal failure (Chronic) Hospice care patient (Acute) Hyponatremia (Acute) Hypomagnesemia (Acute) Hypokalemia (Acute) HFrEF (heart failure with reduced ejection fraction) (Acute) Dementia (Chronic) IDDM (insulin dependent diabetes mellitus) (Chronic) Thrush (Acute) PAD (peripheral artery disease) (Chronic) CAD (coronary artery disease) (Chronic) MRSA bacteremia (Acute) Gram-positive bacteremia (Acute) NSTEMI (non-ST elevated myocardial infarction) (Acute) Aspiration pneumonia (Acute) Pleural effusion (Acute) Acute renal failure (Acute) Parotid mass (Acute) Medical History Intention tremor COPD (chronic obstructive pulmonary disease) Dyslipidemia Metabolic syndrome Warthin's tumor CHF (congestive heart failure) Tobacco use Anemia Diabetic neuropathy Renal insufficiency Depression Gangrene Nodular prostate Hematuria Lower urinary tract symptoms (LUTS) Hypercholesteremia Hypertension Diabetes Surgical History History of transmetatarsal amputation of right foot S/P CABG (coronary artery bypass graft) S/P insertion of iliac artery stent Rotator Cuff Repair LEFT LASER SURGERY LEFT EYE KNEE REPAIR chronic pain and collagenous disruption. Colonoscopy - MAC (~2001) polyps and diverticulosis Colonoscopy - IV Sedation DR.C Sobia GUILLERMO;3 POLYPS Appendectomy AGE 15 Social History Smoking/Tobacco Use Status: Current every day Tobacco Type: pipe Smoking risk assessment performed?: Yes Alcohol Intake: never Drug use: Never Substance use type: does not use Housing: house Do you feel safe at home: Yes Do you feel safe in your relationship?: Yes Meds Allergies and Home Medications Allergies Allergy/AdvReac Type Severity Reaction Status Date / Time No Known Drug Allergies Allergy Unknown Unverified 08/12/23 09:00 Home Medications Medication Instructions Recorded Confirmed Type blood sugar diagnostic (Blood #200 strips 09/10/14 07/09/22 History Glucose Test strips) blood-glucose meter #1 ea 09/10/14 07/09/22 History insulin glargine 100 unit/mL (3 40 units SQ HS #1 pen 09/10/14 08/12/23 History mL) subcutaneous pen (Lantus Solostar U-100 Insulin) lancets 28 gauge #200 ea 09/10/14 07/09/22 History insulin aspart U-100 100 unit/mL 20 unit subcut DAILY 11/23/19 08/12/23 History (3 mL) subcutaneous pen (Novolog FlexPen U-100 Insulin aspart) insulin detemir U-100 100 unit/mL 100 unit subcut DAILY 04/20/20 08/12/23 History (3 mL) subcutaneous pen (Levemir FlexTouch U-100 Insulin) insulin lispro 100 unit/mL 15 unit subcut TID 04/20/20 08/12/23 History subcutaneous pen (Humalog KwikPen (U-100) Insulin) insulin syr/ndl U100 half yovani 0.3 #100 ea 04/20/20 07/09/22 History mL 31 gauge x 5/16 (BD Insulin Syringe Ultra-Fine (half unit)) citalopram 10 mg tablet 10 mg PO DAILY 06/03/23 08/12/23 History metoprolol succinate 25 mg 12.5 mg PO DAILY 06/03/23 08/12/23 History tablet,extended release 24 hr sitagliptin phosphate 100 mg 100 mg PO DAILY 06/03/23 08/12/23 History tablet (Januvia) tamsulosin 0.4 mg capsule (Flomax) 0.8 mg PO DAILY 07/04/23 08/12/23 History lisinopril 10 mg tablet 10 mg PO DAILY 07/30/23 08/12/23 History torsemide 10 mg tablet 20 mg PO DAILY 07/30/23 08/12/23 History trazodone 100 mg tablet 100 mg PO DAILY 07/30/23 08/12/23 History lorazepam 0.5 mg tablet 0.5 mg PO Q4H PRN anxiety, dyspnea 09/06/23 Rx #6 tabs morphine concentrate 100 mg/5 mL See Rx Instructions PO Q1H PRN 09/06/23 Rx (20 mg/mL) oral solution pain or dyspnea #30 mL Exam Narrative Exam Narrative: General: very pleasant, elderly man, laying in bed with HOB elevated. He is awake and alert, oriented to person and knows he is in the hospital but thought he was at [facility]. He is not oriented to time. He appears calm and in NAD. HEENT: normocephalic, atraumatic, EOMI, mmm. Neck: supple. Cardiovascular: heart sounds regular, nontachycardic. Respiratory: respirations appear even and unlabored. Extremities: moving BUEs freely. Results Last Vital Signs Temp 34 C L 09/10/23 15:13 Pulse 82 09/10/23 15:13 Resp 18 09/10/23 15:13 BP 116/65 09/10/23 15:13 Pulse Ox 90 L 09/10/23 15:13 Time Spent Time spent with Patient: 55-74 minutes Time was spent: preparing to see the patient(eg.review tests), obtaining and/or reviewing separately otained hiistory, ordering medications,tests, procedures, referring, communicating with other health care program director, counseling the patient and care coordination
[2023-09-10 19:44] VITALS: PULSE 77; O2SAT 94
[2023-09-10 20:00] LABS: C Diff PCR Negative (Negative)
[2023-09-10] MEDS: Loperamide 2 MG CAP PO (20:40)
[2023-09-11 05:00] VITALS: PULSE 77; RESP 18; O2SAT 94
[2023-09-11] MEDS: traZODone 100 MG TAB PO (08:50)
--- NOTE | 2023-09-11 09:42 | PHA.REVIEW2 ---
Pharmacy Admission Review Admission Clinical Review Admission Pharmacy Review: Colitis (Acute) Hospice care patient (Acute) HFrEF (heart failure with reduced ejection fraction) (Acute) MRSA bacteremia (Acute) No Known Drug Allergies Allergy (Unknown, Unverified 08/12/23 09:00) Resuscitation Status DNR/DNI Height 5 ft 6 in Weight 77.383 kg Comments Comments/Follow Ups: Hospice Respite - discharge 09/15/23 Pharmacy Admission Review Renal Dosing Medications needing adjustments: Reviewed (CrCl 23.85 mL/min) Anticoagulation DVT Prophylaxis: N/A (Hospice Respite) Opiate Usage Evaluate Pain Scale/Pains Meds: Reviewed (PRN morphine) Scheduled Bowel Reg ordered if on Opiates?: No (PRN loperamide) Relevant Labs Electrolytes, C-Reactive P, ESR: Reviewed Cardiac Review BP, HR, EF%: Reviewed (WNL, Nasal cannula 1) QTc Review QTc: Reviewed (635 08/12/23) IV to PO Switch IV Medications: Reviewed Home Meds Home Med List reviewed: Reviewed Current Meds Current Medication Order Review: Reviewed Comments Comments/Follow Ups: Hospice Respite - discharge 09/15/23
--- NOTE | 2023-09-11 10:13 | INITIAL_ITS ---
Date of service: 09/11/23 Time of Service: 10:13 Care Management Initial Assmt Initial Assessment REASON FOR HOSPITALIZATION:: Renal failure Hospice respite PREVIOUS FUNCTIONAL STATUS/SOCIAL/FAMILY SUPPORTS:: Scotty lives in [place] with his Marguerite. They have 3 adult children who live in the [place] area. When asked if the family is close he answered not really. Scotty informed CM that he had 3 grandchildren but that they all . He was unable to state when or how this happened. He also stated that he is independent with ADLs including feeding, bathing and toileting himself. He shared that he receives home health services but is not sure what for. He has a walker, cane, commode and shower chair at home for DME and he is on hospice. CURRENT FUNCTIONAL STATUS:: Scotty is on hospice and is here for respite. He just went onto the hospice service on 09/09/23 but fell yesterday and his does not feel she can care for him at home. He appears comfortable and offered no complaints when CM met with him. He answered questions but some of the answers are likely inaccurate. ADVANCE DIRECTIVES:: on file. Marguerite [facility] Has patient been provided with info about the portal/API?: Yes Did the patient sign up for the portal?: No CODE STATUS:: DNR/DNI INSURANCE COVERAGE / FINANCIAL ISSUES:: hospice - [facility] CURRENT HOME/COMMUNITY SERVICES/EQUIPMENT:: on hospice PRIMARY CARE PHYSICIAN:: Asif Burr POTENTIAL DISCHARGE NEEDS:: may need placement PATIENT/FAMILY EDUCATION NEEDS:: Review of activity, limitations, follow up plan, Ask Me Three TRANSPORTATION:: to be determined by disposition PLAN:: Undetermined at this time. On hospice respite until 09/15/23. May need placement as unable to care for him at home.CM will follow and support patient, family and discharge planning concerns. [facility] All Active Problems (Updated 09/11/23 @ 08:39 by Linda Mathews NP) Colitis (Acute) Renal failure (Chronic) Hospice care patient (Acute) Hyponatremia (Acute) Hypomagnesemia (Acute) Hypokalemia (Acute) HFrEF (heart failure with reduced ejection fraction) (Acute) Dementia (Chronic) IDDM (insulin dependent diabetes mellitus) (Chronic) Thrush (Acute) PAD (peripheral artery disease) (Chronic) CAD (coronary artery disease) (Chronic) MRSA bacteremia (Acute) Gram-positive bacteremia (Acute) NSTEMI (non-ST elevated myocardial infarction) (Acute) Aspiration pneumonia (Acute) Pleural effusion (Acute) Acute renal failure (Acute) Parotid mass (Acute) Medical History Intention tremor COPD (chronic obstructive pulmonary disease) Dyslipidemia Metabolic syndrome Warthin's tumor CHF (congestive heart failure) Tobacco use Anemia Diabetic neuropathy Renal insufficiency Depression Gangrene Nodular prostate Hematuria Lower urinary tract symptoms (LUTS) Hypercholesteremia Hypertension Diabetes Surgical History History of transmetatarsal amputation of right foot S/P CABG (coronary artery bypass graft) S/P insertion of iliac artery stent Rotator Cuff Repair LEFT LASER SURGERY LEFT EYE KNEE REPAIR chronic pain and collagenous disruption. Colonoscopy - MAC (~2001) polyps and diverticulosis Colonoscopy - IV Sedation DR.C Sobia GUILLERMO;3 POLYPS Appendectomy AGE 15 Social History Smoking/Tobacco Use Status: Current every day Tobacco Type: pipe Smoking risk assessment performed?: Yes Alcohol Intake: never Drug use: Never Substance use type: does not use Housing: house Do you feel safe at home: Yes Do you feel safe in your relationship?: Yes SDOH(Care Management) Screening Will the Patient Participate in the Screening?: Unable to obtain
[2023-09-11 12:49] VITALS: BP 101/51; PULSE 69; RESP 18; TEMP 35.6; O2SAT 90
[2023-09-11 19:26] LABS: MRSA PCR Positive (Negative)
[2023-09-12] MEDS: Loperamide 2 MG CAP PO ×3 (02:35→20:30)
[2023-09-12] MEDS: traZODone 100 MG TAB PO (08:28)
--- NOTE | 2023-09-12 08:51 | PDOC.CMPRO ---
Date of service: 09/12/23 Time of Service: 08:51 Care Management Progress Note Progress Note Text Progress Note Text: S/O:Ed remains on hospice respite. He was restless when CM met with him and had thrown off his covers and had only depends on for clothing. When asked if he was warm he stated he was. Ed appears more confused today than he was when CM met with him yesterday. He vomited this morning and complained of nausea, but this afternoon he stated that he was feeling better. A: Ed is a 78 year old man admitted on 09/10/23 for hospice respite P: Anticipate Ed will return home on hospice on 09/15/23.
[2023-09-12] MEDS: Ondansetron O.D.T. 4 MG TABEF PO (11:47)
--- NOTE | 2023-09-13 09:45 | PDOC.CMPRO ---
Date of service: 09/13/23 Time of Service: 09:46 Care Management Progress Note Progress Note Text Progress Note Text: S/O:Scotty remains on hospice respite. He will be discharged home on Saturday with increased support in the home coordinated by the hospice team. He will transport via EMS coordinated by CM and follow up with [facility]. When CM met with him he was pleasant but did not appear totally clear,mentally. Scotty was seen by Dr. Pineda in followup as well as by Aliyah Turner, hospice home care coordinator. A: Scotty is a 78 year old man admitted on 09/10/23 for hospice respite P: Anticipate Ed will return home on hospice on 09/15/23.He will transport via EMS coordinated by [facility] and follow up with [facility]. CM will follow and continue to assess for discharge needs.
[2023-09-13] MEDS: traZODone 100 MG TAB PO (09:46)
--- NOTE | 2023-09-13 14:20 | W.PM.PROGNOT ---
Date of Service Date of service: 09/13/23 Time of Service: 12:30 Assessment and Plan Assessment and plan (1) Hospice care: Status: Acute Assessment and plan: At [facility] on respite status. Transferred to our hospice from [facility]. He might be recovering to the point where he no longer qualifies for hospice. Will reassess on Saturday when he is due to be discharged home. CM also asked that I evaluate him for capacity on that visit. (2) Renal failure: Status: Chronic Assessment and plan: Consider getting BMP either at time of discharge or soon thereafter. (3) PAD (peripheral artery disease): Status: Chronic Assessment and plan: Scars from PVD surgeries evident. Poor peripheral pulses. LIkely why his LE are so weak. 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 (6) IDDM (insulin dependent diabetes mellitus): Status: Chronic Assessment and plan: Contributes to all his multiple and severe health problems (7) HFrEF (heart failure with reduced ejection fraction): Status: Acute Assessment and plan: Not in an exacerbation right now, but at high risk for recurrent morbidity from same. Subjective Subjective Patient reports: no new complaints and feels better Interval history since last seen: This was first time meeting Scotty. He is on hospice respite during this admission. His wif is feeling as if she needs more help at home. Scotty falls frequently and is at risk for serious injury. He has no toes on his left foot; he said they were amputed secondary to frostbite after he fell and was down outside fora few hours. I am not sure how accurate a historian he is. I tried to reach his , Marguerite, but could not during my visit. He was pleasant and interactive. He did not appear to be in any pain. He was surprisingly strong in his upper extremities. His lower extremities, in contrast, have lost a lot of muscle mass. He has scars (surgical and otherwise), bruises, abrasions, etc in both lower legs. His primary nurse, Hilary, did not think he was safe using the walker as his legs are so weak. She does stand pivot him to the commode, but no farther. I spoke to his career developer, Corrine Pabon RN from [facility] and his hospice sporting goods salesperson, Brennen Turner together after my visit. They were concerned that he had never finished his Choices for Care application with [employer] registered nurse hh case manager Tiffanie Jalloh. He and his don't have any extra money or long-term care insurance for a senior living or community assisted payment. Aliyah working with Tiffanie to see if she can finish Lo application. He is due to go home on Saturday. I have been assured that his understands that Scotty cannot stay at [facility] after Saturday. Exam Narrative Exam Narrative: General: very pleasant, elderly man, laying in bed with HOB elevated. He is awake and alert, oriented to person and knows he is in the hospital. He seemed to recognize his nurse. He is not oriented to time. He appears calm and in NAD. HEENT: normocephalic, atraumatic, EOMI, mmm. Neck: no lad or jvd. Cardiovascular: heart sounds regular, nontachycardic. Respiratory: respirations appear even and unlabored. Extremities: moving BUEs freely Neuro UEs both strong, he could hold up my body weight when I leaned away from him as he grasped my hand. Legs with little muscle mass. Missing all 5 toes on one foot psych not agitated, not anxious, pleasant and cooperative. skin multiple bruises, scars, etc. Objective Last Vital Signs Temp 96.0 F L 09/11/23 12:49 Pulse 69 09/11/23 12:49 Resp 18 09/11/23 12:49 BP 101/51 L 09/11/23 12:49 Pulse Ox 90 L 09/11/23 12:49 Time Spent with Patient Time Spent with Patient: 25-34 minutes Time was spent: obtaining and/or reviewing separately otained hiistory, referring, communicating with other health managed care liaison, counseling the patient and care coordination
[2023-09-14] MEDS: traZODone 100 MG TAB PO (09:08)
[2023-09-15] MEDS: traZODone 100 MG TAB PO (09:32)
--- NOTE | 2023-09-15 11:39 | DSE_ITS ---
Date of service: 09/15/23 Time of Service: 12:02 DS: Diagnosis Discharge Diagnosis (1) Hospice care: Status: Acute Asessment and Plan: continue hospice (2) Renal failure: Status: Chronic Asessment and Plan: did not check bmp and renal function during this admission if he continues to improve, will check bmp within the next 2 weeks (3) PAD (peripheral artery disease): Status: Chronic Asessment and Plan: severe end stage s/p surgeries, both grafting and amputations (4) CAD (coronary artery disease): Status: Chronic Asessment and Plan: sp cabg no symptoms of FL or CAD or angina during his stay (5) MRSA bacteremia: Status: Acute Asessment and Plan: resolved 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, colonized (6) IDDM (insulin dependent diabetes mellitus): Status: Chronic Asessment and Plan: no longer using his insulin, and patient both unable (7) HFrEF (heart failure with reduced ejection fraction): Status: Acute Asessment and Plan: long-standing used to be on diuretics will reinstate if needed continue b=jarrod and narda-i Discharge Plan Disposition Patient Disposition: Home W/Hospice Services Condition: Fair Discharge Details Reason For Visit: Renal failure Admit Date/Time: 09/10/23 15:43 Admit Provider: Queenie Pineda Attending Provider: Queenie Pineda Primary Care Provider: Asif Burr [facility] Course Hospital Course: Scotty was admitted for hospice respite stay. He completed 5 nights. His Marguerite is aware that he is coming home. Hospice nurse, GOVERNMENT RELATIONS MANAGER and ELECTRIC LINEMAN are all due to see him tomorrow. He has to go home by ambulance. He cannot walk. He is too confused to sit for the length of the trip home. He is missing all 5 toes on his right foot and has a history of multiple falls due to poor balance. He has moderate dementia. He lacks capacity to make his own medical decisions. He has an indwelling catheter. He has chronic loose stools. Nurses and LNAs report that he needs to be changed approximately 4 x per day. While here, he was tested again for ciff and he was negative on 09/10/23. He was tested for MRSA (cause of his sepsis) and he was positive in his NARES only. He is pleasantly confused. He is cooperative. He has severely impaired short term memory and trouble cueing/following directions. Continue hospice level of care for now. Home Meds and New Rx's Prescriptions: New loperamide 2 mg Capsule 2 mg PO QLOOSE PRN (Reason: diarrhea) Qty: 30 3RF Rx Instructions: not hospice covered scopolamine base 1 mg over 3 days Patch 3 Day 1 mg transdermal Q72H PRNQty: 4 0RF Rx Instructions: hospice Continued lisinopril 10 mg tablet 10 mg PO DAILY trazodone 100 mg tablet 100 mg PO DAILY metoprolol succinate 25 mg tablet extended release 24 hr 12.5 mg PO DAILY morphine concentrate 100 mg/5 mL (20 mg/mL) solution See Rx Instructions PO Q1H PRN MDD 240 mg Qty: 30 0RF Rx Instructions: 0.25-1.0 ml orally every 1 hour, as needed; HOSPICE lorazepam 0.5 mg tablet 0.5 mg PO Q4H PRN (Reason: anxiety, dyspnea) Qty: 6 3RF Rx Instructions: hospice Discontinued tamsulosin [Flomax] 0.4 mg capsule 0.8 mg PO DAILY insulin glargine [Lantus Solostar U-100 Insulin] 100 UNIT/1 ML insulin pen 40 units SQ HS Qty: 1 Hold Instructions: Pt Stopped/Never Started (DME) blood-glucose meter 1 EACH misc 1 ea Miscellaneous ONCE Qty: 1 Rx Instructions: ONE TOUCH ULTRA MINI DIAGNOSIS CODE 250.02 (DME) Blood Glucose Test 1 EACH strip 1 ea Miscellaneous BID Qty: 200 Rx Instructions: FOR ONE TOUCH ULTRA MINI METER. Pt uses insulin.DIAGNOSIS CODE 250.02 (DME) lancets 1 EACH misc 1 ea Miscellaneous BID Qty: 200 Rx Instructions: FOR ONE TOUCH ULTRA MINI METER. USES INSULIN. DIAGNOSIS CODE 250.02 Levemir FlexTouch U100 Insulin 100 unit/mL (3 mL) insulin pen 100 unit SC DAILY Hold Instructions: Pt Stopped/Never Started (DME) BD Insulin Syringe (half unit) 0.3 mL 31 gauge x 5/16 syringe See Rx Instructions .ROUTE .MEDSUPPLY Qty: 100 Rx Instructions: As directed insulin lispro [Humalog KwikPen Insulin] 100 unit/mL insulin pen 15 unit SC TID Hold Instructions: Pt Stopped/Never Started Rx Instructions: 2-3 times daily 15 units small meals 20 units large meals citalopram 10 mg tablet 10 mg PO DAILY Januvia 100 mg tablet 100 mg PO DAILY torsemide 10 mg tablet 20 mg PO DAILY insulin aspart U-100 [Novolog FlexPen U-100 Insulin] 100 unit/mL (3 mL) insulin pen 20 unit SUBCUT DAILY Hold Instructions: Pt Stopped/Never Started Patient Comments: INJECT 20 UNITS SUBCUTANEOUSLY ONCE DAILY BEFORE THE BIGGEST MEAL OF THE DAY Discharge Instructions Stand Alone Forms: Nursing Discharge Form Activity:: Activity as Tolerated Equipment/Supplies:: No Equipment Needed Diet:: As Tolerated Discharge Orders Discharge Orders: Discharge Order (Routine); Ordered 09/15/23 Ordered By: Queenie Pineda DS: Summary Time Spent with Patient providing and/or coordinating discharge services: Greater than 30 minutes Status at Discharge Functional status at discharge: bed bound Overall status at discharge: patient is not back to baseline Mental Status: other Speech and Movement: delayed speech and slowed movement Mood: other Affect: normal affect Quality:SDOH Health Related Social Needs: No Data to Display Exam Narrative Exam Narrative: General: very pleasant, elderly man, laying in bed with HOB elevated. He is awake and alert, oriented to person and knows he is in the hospital. He seemed to recognize his nurse. He is not oriented to time. He appears calm and in NAD. HEENT: normocephalic, atraumatic, EOMI, mmm. Neck: no lad or jvd. Cardiovascular: heart sounds regular, nontachycardic. Respiratory: respirations appear even and unlabored. Extremities: moving BUEs freely Neuro UEs both strong, he could hold up my body weight when I leaned away from him as he grasped my hand. Legs with little muscle mass. Missing all 5 toes on one foot psych not agitated, not anxious, pleasant and cooperative. skin multiple bruises, scars, etc. Psych Mental Status: other Speech and Movement: delayed speech and slowed movement Mood: other Affect: normal affect DS: Data Vitals/I&O Vitals and I&O: Vital Signs Temperature 96.0 F L 09/11/23 12:49 Temperature Source Tympanic 09/11/23 12:49 Pulse 69 09/11/23 12:49 Pulse Rhythm Regular 09/10/23 15:13 Respiratory Rate 18 09/11/23 12:49 Respiratory Effort Normal, Non-Labored 09/10/23 15:13 Respiratory Depth Normal 09/10/23 15:13 Respiratory Pattern Normal 09/10/23 15:13 Blood Pressure 101/51 L 09/11/23 12:49 Pulse Oximetry 90 L 09/11/23 12:49 Oxygen Delivery Method Room Air 09/11/23 12:49 Oxygen Flow Rate 0 09/11/23 12:49 Pain Level 0 09/13/23 02:00 Comment vitals taken post fall; 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 09/11/23 12:49 Intake & Output 09/14/23 09/14/23 09/15/23 11:59 23:59 11:59 Intake Total 110 / 110 Output Total 75 / 75 Balance 35 / 35 Intake: Oral 110 / 110 Output: Urine 75 / 75 Other: Urine Color Light Mikayla Urine Appearance Clear Clear Clear Stool Size Moderate Small Small Stool Characteristics Soft Soft Soft Mucoid Mucoid Brown PFSH All Active Problems Hospice care (Acute) Renal failure (Chronic) Hospice care patient (Acute) Hyponatremia (Acute) Hypomagnesemia (Acute) Hypokalemia (Acute) HFrEF (heart failure with reduced ejection fraction) (Acute) Dementia (Chronic) IDDM (insulin dependent diabetes mellitus) (Chronic) PAD (peripheral artery disease) (Chronic) CAD (coronary artery disease) (Chronic) MRSA bacteremia (Acute) MRSA in [facility] Aug 2023 NSTEMI (non-ST elevated myocardial infarction) (Acute) Pleural effusion (Acute) Acute renal failure (Acute) Parotid mass (Acute) Medical History Toxic metabolic encephalopathy Thrush Gram-positive bacteremia Aspiration pneumonia Septic shock Rhabdomyolysis Intention tremor COPD (chronic obstructive pulmonary disease) Dyslipidemia Metabolic syndrome Warthin's tumor CHF (congestive heart failure) Tobacco use Anemia Diabetic neuropathy Renal insufficiency Depression Gangrene Nodular prostate Hematuria Lower urinary tract symptoms (LUTS) Hypercholesteremia Hypertension Diabetes Surgical History History of transmetatarsal amputation of right foot S/P CABG (coronary artery bypass graft) S/P insertion of iliac artery stent Rotator Cuff Repair LEFT LASER SURGERY LEFT EYE KNEE REPAIR chronic pain and collagenous disruption. Colonoscopy - MAC (~2001) polyps and diverticulosis Colonoscopy - IV Sedation DR.C Sobia GUILLERMO;3 POLYPS Appendectomy AGE 15 Social History (Updated 09/15/23 @ 12:10 by Queenie Pineda MD) Smoking/Tobacco Use Status: Former Tobacco Use Smoking risk assessment performed?: Yes Alcohol Intake: never Drug use: Never Substance use type: does not use Caregiver/Support person: Yes Household members: spouse Housing: house Communication Needs: Hard of Hearing and Corrective Lenses Education Level: high school Do you need help understanding health information?: Always Current gender identity: male What is your relationship status?: How often do you talk on the phone with friends or family?: never How often do you get together with friends or relatives?: once per week Panel score (0-1 are the most socially isolated patients): 1 What type of physical activity do you participate in: assisted ambulation and sedentary lifestyle Duration: < 15 minutes/day Frequency: does not exercise Special petar needs: No Agree to transfusion: No Do you feel safe at home: Yes Do you feel safe in your relationship?: Yes Additional Social history: Lives with who is also frail and elderly. GOVERNMENT RELATIONS MANAGER working on group home placement. Time Spent with Patient Time Spent with Patient: 45-69 minutes Time was spent: obtaining and/or reviewing separately otained hiistory, ordering medications,tests, procedures, referring, communicating with other health home health care provider, indepentently interpreting results, counseling the patient () and care coordination
--- NOTE | 2023-09-15 11:59 | NUR.NOTE ---
Addendum entered by Gaby Watts 09/15/23 12:04: Correction of date 09/15/2023 Original Note: Discharge medication list and Visit information faxed to [facility] 09/15/2022 @ 11:58Nursing Note:
[2023-09-15] MEDS: Loperamide 2 MG CAP PO (12:09)
--- NOTE | 2023-09-15 14:45 | CMPROGNOTE_ITS ---
Date of service: 09/15/23 Time of Service: 14:45 Care Management Progress Note Progress Note Text Progress Note Text: Elliott's five day respite was completed today. Dr. Pineda met with him and completed a capacity evaluation with him and determined he does not have capacity to make his medical decisions. CM spoke to his yesterday, and informed her that he would be discharging today. His RN called her today to provide discharge instructions. Per Dr. Pineda, a hospice nurse, DIPLOMATIC COURIER and CARRY OUT CLERK AND SHELF STOCKER will visit him at home tomorrow. CM coordinated EMS transport due to his confusion and inability to sit up in a car for the ride home.
== END 2023-09-15 12:50 | disposition hospice, home (50) | DRG 683 ==
PROVIDERS: Admitting Provider Family Medicine; PCP Family Medicine; Visit Provider Family Medicine
DX: N18.9 Chronic kidney disease, unspecified (principal); E87.1 Hypo-osmolality and hyponatremia; I13.0 Hypertensive heart and chronic kidney disease with heart failure and stage 1 through stage 4 chronic kidney disease, or unspecified chronic kidney disease; I50.22 Chronic systolic (congestive) heart failure; Z79.4 Long term (current) use of insulin; I73.9 Peripheral vascular disease, unspecified; I25.10 Atherosclerotic heart disease of native coronary artery without angina pectoris; I08.1 Rheumatic disorders of both mitral and tricuspid valves; Z95.1 Presence of aortocoronary bypass graft; Z95.828 Presence of other vascular implants and grafts; E78.5 Hyperlipidemia, unspecified; Z89.431 Acquired absence of right foot; E11.22 Type 2 diabetes mellitus with diabetic chronic kidney disease; K52.9 Noninfective gastroenteritis and colitis, unspecified; Z74.01 Bed confinement status; Z51.5 Encounter for palliative care; E83.42 Hypomagnesemia; E87.6 Hypokalemia; B37.9 Candidiasis, unspecified; J44.9 Chronic obstructive pulmonary disease, unspecified; G25.2 Other specified forms of tremor; F32.A Depression, unspecified; E78.00 Pure hypercholesterolemia, unspecified; F17.210 Nicotine dependence, cigarettes, uncomplicated; D64.9 Anemia, unspecified; E11.40 Type 2 diabetes mellitus with diabetic neuropathy, unspecified; F17.290 Nicotine dependence, other tobacco product, uncomplicated; Z22.322 Carrier or suspected carrier of Methicillin resistant Staphylococcus aureus; F03.B0 Unspecified dementia, moderate, without behavioral disturbance, psychotic disturbance, mood disturbance, and anxiety
CPT/HCPCS: 00123; 87493; 87641